=== PATIENT | male | born 1940 | race Hispanic/Latino ===

== ENCOUNTER 2016-09-26 11:00 | Emergency (ER) | payer OTHER, MEDICARE ==
[~2016-09-26 11:00] MED LIST: AMOXICILLIN875 M1 PO; ASPIR 8181 MG PO; ATROVENT 0.02%2.5 ML INH; AUGMENTIN 875 M1 TAB PO; AUGMENTIN 875-1 EACH PO; AUGMENTIN 875875 MG PO; COZAAR 50MG TAB50 MG PO; COZAAR50 M1 PO; ECOTRIN81 MG PO; FOLIC ACID 1 MG PO; FUROSEMIDE40 M1 PO; GLIMEPIRIDE2 MG PO; HEPARIN 2525000 UNI1 IV; JANUMET 50-5001 EACH PO; JANUMET 500 MG-1 TAB PO; K-TAB ER20 MEQ PO; LANTUS SOLOS100 U/ML SC; LASIX40 MG PO; LISINOPRIL2.5 MG PO; LOPRESSOR 25MG25 MG PO; LOVASTATIN40 MG PO; MEDROL DOSEPAK1 PAC PO; METFORMIN HCL1000 M1 PO; METHOTREXATE 22.5 MG PO; NEURONTIN300 MG PO; NORVASC5 M1 PO; NOVAPLUS FE50 MCG/HR TOP; NOVOLIN R1000 UNIT2 SC; NOVOLOG100 U/ML SC; PAROXETINE HYDR40 MG PO; PREDNISONE 10MG10 M1 PO; PREDNISONE10 MG PO; PROAIR HFA0.09 MG/Ac INH; SYMBICORT 80/4.1 PUF INH; VERAPAMIL ER120 M1 PO; XARELTO20 M2 PO; XARELTO20 MG PO; ZOCOR40 M1 PO
[2016-09-26 11:15] VITALS: BP 109/62
--- NOTE | 2016-09-26 11:32 | ED NOSE COMPLAINT ---
History of Present Illness General Chief Complaint: Epistaxis/Nasal Foreign Body Stated Complaint: NOSEBLEED Source: patient, family, old records Exam Limitations: no limitations Vital Signs & Intake/Output Vital Signs & Intake/Output ED Intake and Output 09/27 0000 09/26 1200 Intake Total 0 Output Total Balance 0 Intake, Oral 0 Allergies Coded Allergies: NO KNOWN ALLERGIES (02/08/16) Reconcile Medications Amlodipine (Norvasc 5MG Tab) 5 MG TABLET 1 TAB PO DAILY HTN (Reported) Amoxicillin 875 MG TABLET 1 TAB PO BID nose prophylaxis Furosemide 40 MG TABLET 1 TAB PO DAILY WATER PILL (Reported) Glimepiride 2 MG TABLET 1 TAB PO DAILY DIABETES (Reported) Losartan Potassium (Cozaar) 50 MG TABLET 1 TAB PO DAILY HEART (Reported) METFORMIN HCL (Metformin) 1,000 MG TAB 1 TAB PO BID DIABETES (Reported) Potassium Chloride (K-Tab ER) 20 MEQ TABLET.ER 1 TAB PO DAILY SUPPLEMENT ( Reported) Rivaroxaban (Xarelto) 20 MG TABLET 1 TAB PO DAILY BLOOD THINNER (Reported) with food Simvastatin 40 MG TABLET 1 TAB PO QPM CHOLESTEROL (Reported) Sitagliptin Phos/Metformin HCl (Janumet 50-500 MG Tablet) 50 MG-500 MG TABLET 1 TAB PO BID DIABETES (Reported) Verapamil HCl (Verapamil ER) 120 MG TABLET.ER 1 TAB PO DAILY HEART (Reported) Triage Note: PT TO ED FOR NOSEBLEED SINCE 0800 THIS AM. PT TAKES XARELTO DAILY. NOSE NOT CURRENTLY BLEEDING. Triage Nurses Notes Reviewed? yes HPI: Patient is a 76-year-old male presents complaining of right-sided nosebleed. Bleeding onset at 2 AM this morning. Patient reports that bleeding started spontaneously, no trauma present. Patient takes Xarelto daily. Pain is 0 out of 10. Bleeding has been mild to moderate. Patient has had multiple previous nosebleeds that he has presented to the emergency department for an required a Rhino Rocket. Patient is unsure of the name of the ear nose and throat doctor that he is followed up within the past. Denies headache, lightheadedness. (EUNICE WARD,ANTONIO) Past History Travel History Traveled to [place] past 21 day No Medical History Any Pertinent Medical History? 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 Relation not specified for: FH: diabetes mellitus FHx: stroke Hx Contributory? No (ANTONIO AVILES) Review of Systems Review of Systems Constitutional: Denies: chills, fever. EENTM: Reports: see HPI. Respiratory: Denies: cough, short of breath. Cardiovascular: Denies: chest pain. GI: Denies: abdominal pain, nausea, vomiting. Musculoskeletal: Denies: back pain, neck pain. Neurological/Psychological: Denies: headache, numbness. Hematologic/Endocrine: Reports: see HPI. Immunologic/Allergic: Denies: splenectomy. (ANTONIO AVILES) Physical Exam Physical Exam General Appearance: well developed/nourished, alert, awake Head: atraumatic, normal appearance Eyes: Bilateral: normal appearance. Nose: mild active bleeding from right nare. Mouth/Throat: normal mouth inspection, pharynx normal, no visible active bleeding in oropharynx Neck: normal inspection, supple, full range of motion Cardiovascular/Respiratory: no respiratory distress Back: normal inspection, normal range of motion Neurologic/Psych: awake, alert, oriented x 3, normal gait, normal mood/affect Skin: normal color, warm/dry (ANTONIO AVILES) Progress Differential Diagnoses I considered the following diagnoses in my evaluation of the patient: anterior vs posterior epistaxis, hypertensive urgency, anemia, coagulopathy Plan of Care: Patient well appearing. No signs of posterior epistaxis. 4.5 cm rhino rocket placed by me. Well tolerated by patient. Discussed with Dr. Avelar. Initial ED EKG: none (ANTONIO AVILES) Departure Departure Disposition: HOME OR SELF CARE Condition: Stable Clinical Impression Primary Impression: Anterior epistaxis Referrals: CASSIUS BLOOM,LYNN Hankins (PCP/Family) ARIANA BLOOM,DARIA Bacon Additional Instructions: Follow-up with the ear nose and throat doctor that you have seen previously or with Dr. Suárez(ear nose and throat doctor) within 2-3 days for further evaluation. Call tomorrow morning for appointment. Return to the emergency department immediately if bleeding resumes, fevers, increasing pain, or worsening of symptoms. Departure Forms: Customer Survey General Discharge Information Prescriptions: Current Visit Scripts Amoxicillin 1 TAB PO BID #14 TAB (ANTONIO AVILES) PA/CARD LACER Co-Sign Statement Statement: ED Attending supervision documentation- [X] I saw and evaluated the patient. I have also reviewed all the pertinent lab results and diagnostic results. I agree with the findings and the plan of care as documented in the PA's/CARD LACER's documentation. [X] I have reviewed the ED Record and agree with the PA's/CARD LACER's documentation. [] Additions or exceptions (if any) to the PAs/CARD LACER's note and plan are summarized below: [] (NEHEMIAS BLOOM,JEANNETTE) Procedures Epistaxis/Nasal Foreign Body Status: bleeding (mild) Inspected With: otoscope Bleeding Site: anterior Nasal Rocket: Right: Inserted Anterior (4.5cm). (ANTONIO AVILES)
[2016-09-26] MEDS ORDERED: AMOXICILLIN875 M1 PO (11:58)
== END 2016-09-26 12:04 ==
LOC: ERH 11:00
DX: R04.0 Epistaxis (principal)

== ENCOUNTER 2016-11-03 02:47 | Emergency (ER) | payer OTHER, MEDICARE ==
[~2016-11-03] VITALS: Ht 160 cm; Wt 78.5 kg
--- NOTE | 2016-11-03 03:30 | ED NOSE COMPLAINT ---
History of Present Illness General Chief Complaint: Epistaxis/Nasal Foreign Body Stated Complaint: "NOSE BLEEDING SINCE YESTERDAY 1400" Source: patient Exam Limitations: no limitations Vital Signs & Intake/Output Vital Signs & Intake/Output Vital Signs Date Time Temp Pulse Resp B/P Pulse O2 O2 Flow FiO2 Ox Delivery Rate 11/03 0252 97.0 80 18 131/62 96 Room Air Allergies Coded Allergies: NO KNOWN ALLERGIES (02/08/16) Reconcile Medications Amlodipine Besylate (Norvasc) 5 MG TABLET 1 TAB PO DAILY HTN (Reported) Cephalexin (Keflex) 500 MG CAPSULE 1 CAP PO TID nasal packing Furosemide 40 MG TABLET 1 TAB PO DAILY WATER PILL (Reported) Glimepiride 2 MG TABLET 1 TAB PO DAILY DIABETES (Reported) Losartan Potassium (Cozaar) 50 MG TABLET 1 TAB PO DAILY HEART (Reported) Metformin HCl 1,000 MG TABLET 1 TAB PO BID DIABETES (Reported) Potassium Chloride (K-Tab ER) 20 MEQ TABLET.ER 1 TAB PO DAILY SUPPLEMENT ( Reported) Rivaroxaban (Xarelto) 20 MG TABLET 1 TAB PO DAILY BLOOD THINNER (Reported) with food Simvastatin (Zocor*) 40 MG TABLET 1 TAB PO QPM CHOLESTEROL (Reported) Sitagliptin Phos/Metformin HCl (Janumet 50-500 MG Tablet) 50 MG-500 MG TABLET 1 TAB PO BID DIABETES (Reported) Sulfamethoxazole/Trimethoprim (Bactrim Ds Tablet) 800 MG-160 MG TABLET 1 TAB PO BID NASAL PACKING Verapamil HCl (Verapamil ER) 120 MG TABLET.ER 1 TAB PO DAILY HEART (Reported) Triage Note: PT TO TRIAGE C/O NOSEBLEED SINCE 2200 LAST NIGHT. PT HAS HISTORY OF NOSEBLEEDS. Triage Nurses Notes Reviewed? yes HPI: Patient presents for evaluation of the sudden onset of nose bleeding episode that began about 10:00 last night. Patient states he has had at least 4 other nosebleeding episodes. He denies any trauma or inciting event. He states nosebleeding has been moderate to severe and nothing seems to make it get better. The bleeding has been more or less constant since onset. Past History Travel History Traveled to [place] past 21 day No Medical History Any Pertinent Medical History? 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 Relation not specified for: FH: diabetes mellitus FHx: stroke Hx Contributory? No Review of Systems Review of Systems Constitutional: Reports: no symptoms. EENTM: Reports: see HPI. Respiratory: Reports: no symptoms. Cardiovascular: Reports: no symptoms. GI: Reports: no symptoms. Genitourinary: Reports: no symptoms. Musculoskeletal: Reports: no symptoms. Skin: Reports: no symptoms. Neurological/Psychological: Reports: no symptoms. Hematologic/Endocrine: Reports: no symptoms. Immunologic/Allergic: Reports: no symptoms. All Other Systems: Reviewed and Negative Physical Exam Physical Exam Nose: SEE BELOW Comments: Gen.: Well-nourished, well-developed, no acute respiratory distress. Head: Normocephalic, atraumatic. Eyes: Normal inspection bilaterally Ears: Normal inspection bilaterally Nose: Red blood of both sides of the anterior nasal septum, no apparent trauma Throat/mouth : Moist mucosa Neck: Supple, full range of motion, no goiter Lungs: Quiet respirations Chest: Nontender Back: Normal range of motion Abdomen: Soft, nontender, nondistended, normal bowel sounds Extremities: Normal range of motion grossly Neurologic: Cranial nerves grossly intact, speech is clear Skin: warm and dry Psychiatric: Calm, cooperative, no apparent delusions or hallucinations Progress Differential Diagnoses I considered the following diagnoses in my evaluation of the patient: Epistaxis, nasal trauma Plan of Care: See discharge instructions Initial ED EKG: none Comments: 11/03/2016 3:29:49 AM Afrin and lidocaine soaked gauze placed in left nostril. A Merocel nasal tampon was then placed into the left nose with cessation of bleeding. Departure Departure Disposition: HOME OR SELF CARE Condition: Stable Clinical Impression Primary Impression: Epistaxis, recurrent Referrals: CASSIUS BLOOM,LYNN Hankins (PCP/Family) Additional Instructions: The antibiotic as prescribed. Follow-up with [phone] (ear nose and throat doctor) in 3 days to have the nasal packing removed. Return if any concerns or sudden worsening. Departure Forms: Customer Survey General Discharge Information Prescriptions: Current Visit Scripts Sulfamethoxazole/Trimethoprim (Bactrim Ds Tablet) 1 TAB PO BID #6 TAB Procedures Epistaxis/Nasal Foreign Body Status: bleeding Clots Cleared Nasal Passage: by patient blowing Ext Pressure/Nose Pinch (min): 10 Inspected With: otoscope Bleeding Site: anterior septum Hemostatic Nasal Balloon: Left: Inserted Anterior. ED Attending Observation Initial Observation Note: I have seen and personally examined VICE ANNANTE on 11/06/16 at 0835. I agree with the current emergency department documentation. The disposition (admission or discharge) is uncertain at this time, he needs a period of observation for the following reason(s): The ED Nurse caring for this patient has been personally informed as to what the patient is being observed for.
[2016-11-03] MEDS ORDERED: BACTRIM DS TAB1 EACH PO (04:16)
[2016-11-03 04:22] VITALS: BP 128/74
[2016-11-03] MEDS ORDERED: KEFLEX500 M1 PO (07:47)
== END 2016-11-03 04:25 ==
LOC: ERH 02:47
DX: R04.0 Epistaxis (principal)

== ENCOUNTER 2016-11-03 05:55 | Emergency (ER) | payer OTHER, MEDICARE ==
[~2016-11-03 05:55] MED LIST changes: +BACTRIM DS TAB1 EACH PO
--- NOTE | 2016-11-03 06:06 | ED NOSE COMPLAINT ---
See Addendum History of Present Illness General Chief Complaint: Epistaxis/Nasal Foreign Body Stated Complaint: "NOSE BLEEDING" Source: patient, old records Exam Limitations: no limitations Vital Signs & Intake/Output Vital Signs & Intake/Output Vital Signs Date Time Temp Pulse Resp B/P Pulse O2 O2 Flow FiO2 Ox Delivery Rate 11/03 0802 98.9 84 20 154/81 97 Room Air Room Air 11/03 0609 97.6 76 18 171/74 96 Allergies Coded Allergies: NO KNOWN ALLERGIES (02/08/16) Reconcile Medications Amlodipine Besylate (Norvasc) 5 MG TABLET 1 TAB PO DAILY HTN (Reported) Cephalexin (Keflex) 500 MG CAPSULE 1 CAP PO TID nasal packing Furosemide 40 MG TABLET 1 TAB PO DAILY WATER PILL (Reported) Glimepiride 2 MG TABLET 1 TAB PO DAILY DIABETES (Reported) Losartan Potassium (Cozaar) 50 MG TABLET 1 TAB PO DAILY HEART (Reported) Metformin HCl 1,000 MG TABLET 1 TAB PO BID DIABETES (Reported) Potassium Chloride (K-Tab ER) 20 MEQ TABLET.ER 1 TAB PO DAILY SUPPLEMENT ( Reported) Rivaroxaban (Xarelto) 20 MG TABLET 1 TAB PO DAILY BLOOD THINNER (Reported) with food Simvastatin (Zocor*) 40 MG TABLET 1 TAB PO QPM CHOLESTEROL (Reported) Sitagliptin Phos/Metformin HCl (Janumet 50-500 MG Tablet) 50 MG-500 MG TABLET 1 TAB PO BID DIABETES (Reported) Sulfamethoxazole/Trimethoprim (Bactrim Ds Tablet) 800 MG-160 MG TABLET 1 TAB PO BID NASAL PACKING Verapamil HCl (Verapamil ER) 120 MG TABLET.ER 1 TAB PO DAILY HEART (Reported) Triage Nurses Notes Reviewed? yes HPI: Patient presents with a right-sided nose bleeding. Patient was seen earlier this morning for left-sided nose bleeding. Nasal tampon placed at that time with cessation of bleeding. Since then the patient said return if nose bleeding but this time from the right nostril. Bleeding has been constant described as bright red in coloration, moderate to severe in intensity and nothing seems to improve it. (DENA BLOOM,ANSELMO Neri) Past History Travel History Traveled to [place] past 21 day No Medical History Any Pertinent Medical History? 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 Relation not specified for: FH: diabetes mellitus FHx: stroke Hx Contributory? No (ANSELMO FERNANDES MD) Review of Systems Review of Systems Constitutional: Reports: no symptoms. EENTM: Reports: see HPI. Respiratory: Reports: no symptoms. Cardiovascular: Reports: no symptoms. GI: Reports: no symptoms. Genitourinary: Reports: no symptoms. Musculoskeletal: Reports: no symptoms. Skin: Reports: no symptoms. Neurological/Psychological: Reports: no symptoms. Hematologic/Endocrine: Reports: no symptoms. Immunologic/Allergic: Reports: no symptoms. All Other Systems: Reviewed and Negative (ANSELMO FERNANDES MD) Physical Exam Physical Exam Nose: see below Comments: Gen.: Well-nourished, well-developed, no acute respiratory distress. Head: Normocephalic, atraumatic. Eyes: Normal inspection bilaterally Ears: Normal inspection bilaterally Nose: Left nasal tampon in place with no active bleeding, red blood oozing from the right nostril with no apparent trauma Throat/mouth : Moist mucosa Neck: Supple, full range of motion, no goiter Lungs: Quiet respirations Back: Normal range of motion Extremities: Normal range of motion grossly, equal radial pulses Neurologic: Cranial nerves grossly intact, speech is clear Skin: warm and dry Psychiatric: Calm, cooperative, no apparent delusions or hallucinations (ANSELMO FERNANDES MD) Progress Differential Diagnoses I considered the following diagnoses in my evaluation of the patient: Epistaxis Plan of Care: Follow-up ear nose and throat Initial ED EKG: none Comments: 11/03/2016 7:01:28 AM 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 (ANSELMO FERNANDES MD) Plan of Care: Follow-up ear nose and throatComments: No further bleeding. Tolerating bilateral nasal packing. (LAURY CARLISLE MD) Departure Departure Condition: Stable Departure Forms: Customer Survey General Discharge Information (FERNANDES MD,ANSELMO D) Departure Time of Disposition: 744 Disposition: HOME OR SELF CARE Clinical Impression Primary Impression: Anterior epistaxis Referrals: CASSIUS BLOOM,LYNN Hankins (PCP/Family) ARIANA BLOOM,DARIA Bacon Call for ENT follow up Prescriptions: Current Visit Scripts Cephalexin (Keflex) 1 CAP PO TID #9 CAP (ORESTES BLOOM,LAURY)
[2016-11-03] MEDS ORDERED: KEFLEX500 M1 PO (07:47)
[2016-11-03 08:02] VITALS: BP 154/81
== END 2016-11-03 08:03 ==
LOC: ERH 05:55
DX: R04.0 Epistaxis (principal)

== ENCOUNTER 2016-11-05 08:10 | Emergency (ER) | payer OTHER, MEDICARE ==
[~2016-11-05] VITALS: Ht 160 cm; Wt 77.1 kg
[~2016-11-05 08:10] MED LIST changes: +KEFLEX500 M1 PO
[2016-11-05 08:16] VITALS: BP 123/68
--- NOTE | 2016-11-05 09:34 | ED NOSE COMPLAINT ---
History of Present Illness General Chief Complaint: General Adult Stated Complaint: REQ REMOVAL OF NASAL PACKING Source: patient Exam Limitations: language barrier Vital Signs & Intake/Output Vital Signs & Intake/Output Vital Signs Date Time Temp Pulse Resp B/P Pulse O2 O2 Flow FiO2 Ox Delivery Rate 11/05 0816 97.4 80 20 123/68 95 Room Air Allergies Coded Allergies: NO KNOWN ALLERGIES (02/08/16) Reconcile Medications Amlodipine Besylate (Norvasc) 5 MG TABLET 1 TAB PO DAILY HTN (Reported) Cephalexin (Keflex) 500 MG CAPSULE 1 CAP PO TID nasal packing Furosemide 40 MG TABLET 1 TAB PO DAILY WATER PILL (Reported) Glimepiride 2 MG TABLET 1 TAB PO DAILY DIABETES (Reported) Losartan Potassium (Cozaar) 50 MG TABLET 1 TAB PO DAILY HEART (Reported) Metformin HCl 1,000 MG TABLET 1 TAB PO BID DIABETES (Reported) Potassium Chloride (K-Tab ER) 20 MEQ TABLET.ER 1 TAB PO DAILY SUPPLEMENT ( Reported) Rivaroxaban (Xarelto) 20 MG TABLET 1 TAB PO DAILY BLOOD THINNER (Reported) with food Simvastatin (Zocor*) 40 MG TABLET 1 TAB PO QPM CHOLESTEROL (Reported) Sitagliptin Phos/Metformin HCl (Janumet 50-500 MG Tablet) 50 MG-500 MG TABLET 1 TAB PO BID DIABETES (Reported) Sulfamethoxazole/Trimethoprim (Bactrim Ds Tablet) 800 MG-160 MG TABLET 1 TAB PO BID NASAL PACKING Verapamil HCl (Verapamil ER) 120 MG TABLET.ER 1 TAB PO DAILY HEART (Reported) Triage Note: PT HERE FOR NASAL PACKING REMOVAL. PLACED ON TUESDAY MORNING Triage Nurses Notes Reviewed? yes HPI: This patient is a 76-year-old male who presented to the emergency department today for nasal packing removal. He had bilateral nasal packing placed on 11/03. He was told to follow-up with the ear nose and throat physician for packing removal, but reported that he wanted to come back here. He denied any bleeding, facial pain, fevers, chills, chest pain, or any other associated symptoms. (LAKESHIA KRISHNA PA-C) Past History Travel History Traveled to [place] past 21 day No Medical History Any Pertinent Medical History? 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 Relation not specified for: FH: diabetes mellitus FHx: stroke Hx Contributory? No (LAKESHIA KRISHNA PA-C) Review of Systems Review of Systems Constitutional: Reports: no symptoms. EENTM: Reports: see HPI. Respiratory: Reports: no symptoms. Cardiovascular: Reports: no symptoms. GI: Reports: no symptoms. Genitourinary: Reports: no symptoms. Musculoskeletal: Reports: no symptoms. Skin: Reports: no symptoms. Neurological/Psychological: Reports: no symptoms. All Other Systems: Reviewed and Negative (LAKESHIA KRISHNA PA-C) Physical Exam Physical Exam Nose: bilateral packing in place. Dried blood around both nares. Comments: Well-developed well-nourished person in no acute distress HEENT: Head normocephalic, moist mucous membranes, no tenderness to palpation over the sinuses, no tenderness to palpation of the scalp Neck: Supple, no lymphadenopathy Back: Normal gait Respiratory: No respiratory distress. Speaking in full sentences Extremities: No edema, full range of motion Neuro: Alert and oriented x3 Psych: Mood affect normal, normal memory normal judgment. Skin: Warm and dry, no rash on exposed skin (LAKESHIA KRISHNA PA-C) Progress Differential Diagnoses I considered the following diagnoses in my evaluation of the patient: [Epistaxis , packing removal, nasal trauma] Plan of Care: I removed bilateral nasal packing after discussing with the patient the risk for rebleeding and suggesting that he follow-up with your nose and throat physician. He reported that he would like the packing removed here. Left there began to bleed after packing removal. Afrin was used in the left naris and then pressure was held for approximately 20 minutes. No active bleeding at this time. The patient is stable for discharge home with outpatient follow-up with ENT. Initial ED EKG: none (LAKESHIA KRISHNA PA-C) Departure Departure Disposition: HOME OR SELF CARE Condition: Stable Clinical Impression Primary Impression: Encounter for removal of nasal packing Referrals: CASSIUS BLOOM,LYNN Hankins (PCP/Family) RAIANA BLOOM,DARIA Bacon Additional Instructions: Please call the ear nose and throat physician for follow-up. Call them today. Return for any worsening symptoms or concerns. 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 I have also reviewed all the pertinent lab results and diagnostic results. I agree with the findings and the plan of care as documented in the PA's/SLITTER CREASER SLOTTER OPERATOR's documentation. [X] I have reviewed the ED Record and agree with the PA's/SLITTER CREASER SLOTTER OPERATOR's documentation. [] Additions or exceptions (if any) to the PAs/SLITTER CREASER SLOTTER OPERATOR's note and plan are summarized below: [] (NEHEMIAS BLOOM,JEANNETTE)
== END 2016-11-05 09:40 ==
LOC: ERH 08:10
DX: Z48.01 Encounter for change or removal of surgical wound dressing (principal)
CPT/HCPCS: 99281

== ENCOUNTER 2016-11-23 20:34 | Observation (INO) | payer OTHER, MEDICARE ==
[~2016-11-23] VITALS: Ht 162.6 cm; Wt 63.5 kg
--- NOTE | 2016-11-23 20:48 | NUR ---
PT TO ED C/O EPISTAXIS. STATES "5TH TIME IN 3 MONTHS" STATES WAS RECENTLY SWITCHED TO ELIQUIS" PMH OF AFIB HAS BEEN BLEEDING SINCE 1700. DENIES DIZZINESS. STATES FEELS SOB WHEN WALKING
[2016-11-23 21:07] LABS: ABSOLUTE BASOPHIL COUNT 0 /CUMM (0.0-0.2); ABSOLUTE EOSINOPHIL COUNT 0.1 /CUMM (0.0-0.7); ABSOLUTE GRANULOCYTE CT 6.2 /CUMM (1.4-6.5); ABSOLUTE LYMPH COUNT 2.3 /CUMM (1.2-3.4); BASOPHIL % 0.2 % (0.0-2.0); EOSINOPHIL % 1.5 % (0-5); GRANULOCYTE % 64.5 % (42.2-75.2); HEMATOCRIT 22.9 % (42-52); MEAN CORPUSCULAR HGB 16.3 PG (27.0-31.0); MEAN CORPUSCULAR HGB CONC 28.5 G/DL (33.0-37.0); MEAN CORPUSCULAR VOLUME 57.2 FL (80.0-94.0); MEAN PLATELET VOLUME 8.1 FL (7.4-10.4); PLATELET COUNT 241 /CUMM (130-400); RBC DISTRIBUTION WIDTH 20.9 % (11.5-14.5); WHITE BLOOD CELL COUNT 9.6 /CUMM (4.8-10.8)
--- NOTE | 2016-11-23 21:07 | NUR ---
ED [facility] AT BEDSIDE
--- NOTE | 2016-11-23 21:08 | NUR ---
CRITICAL TEST RESULTS [id number] EM CASTILLO 76 M TESTS AND RESULTS: HEMOGLOBIN 6.5 Results received and read back by: TREVOR HUFF Results received date and time: 11/23/162107 The following provider was notified of the results, and read the results back: ED DAWSON Notified date and time: 11/23/16 at 210
[2016-11-23 21:10] LABS: PT 20.5 SEC (9.4-12.5); PTT 34 SEC (25-37)
--- NOTE | 2016-11-23 21:13 | ED GENERAL ADULT ---
History of Present Illness General Chief Complaint: General Adult Stated Complaint: PT HAS A BLOODY NOSE Source: patient, family, old records Exam Limitations: no limitations Vital Signs & Intake/Output Vital Signs & Intake/Output Vital Signs Date Time Temp Pulse Resp B/P Pulse O2 O2 Flow FiO2 Ox Delivery Rate 11/24 0910 96.2 65 20 120/57 98 Room Air Room Air 11/24 0645 96.8 74 18 113/55 99 Room Air 11/24 0630 96.8 69 18 122/58 100 Room Air 11/24 0053 96.7 72 18 103/55 99 Room Air 11/23 2241 97.9 67 20 122/58 98 Room Air 11/23 2234 97.6 73 20 127/58 100 Room Air 11/23 2110 Room Air 11/23 2044 97.6 72 18 118/49 100 Room Air ED Intake and Output 11/24 0000 11/23 1200 Intake Total 0 Output Total Balance 0 Intake, Oral 0 Patient 140 lb Weight Allergies Coded Allergies: NO KNOWN ALLERGIES (02/08/16) Reconcile Medications Amlodipine Besylate (Norvasc) 5 MG TABLET 1 TAB PO DAILY HTN (Reported) Cephalexin (Keflex) 500 MG CAPSULE 1 CAP PO TID nasal packing Furosemide 40 MG TABLET 1 TAB PO DAILY WATER PILL (Reported) Glimepiride 2 MG TABLET 1 TAB PO DAILY DIABETES (Reported) Losartan Potassium (Cozaar) 50 MG TABLET 1 TAB PO DAILY HEART (Reported) Metformin HCl 1,000 MG TABLET 1 TAB PO BID DIABETES (Reported) Potassium Chloride (K-Tab ER) 20 MEQ TABLET.ER 1 TAB PO DAILY SUPPLEMENT ( Reported) Rivaroxaban (Xarelto) 20 MG TABLET 1 TAB PO DAILY BLOOD THINNER (Reported) with food Simvastatin (Zocor*) 40 MG TABLET 1 TAB PO QPM CHOLESTEROL (Reported) Sitagliptin Phos/Metformin HCl (Janumet 50-500 MG Tablet) 50 MG-500 MG TABLET 1 TAB PO BID DIABETES (Reported) Sulfamethoxazole/Trimethoprim (Bactrim Ds Tablet) 800 MG-160 MG TABLET 1 TAB PO BID NASAL PACKING Verapamil HCl (Verapamil ER) 120 MG TABLET.ER 1 TAB PO DAILY HEART (Reported) Triage Note: PT TO ED C/O EPISTAXIS. STATES "5TH TIME IN 3 MONTHS" STATES WAS RECENTLY SWITCHED TO ELIQUIS" PMH OF AFIB HAS BEEN BLEEDING SINCE 1700. DENIES DIZZINESS. STATES FEELS SOB WHEN WALKING Triage Nurses Notes Reviewed? yes HPI: Patient is a 76-year-old male presents complaining of nosebleed. Patient has been having recurrent nosebleeds for several years. Nighat's nosebleed began approximately 4 hours ago. Patient reports no improvement with direct pressure. Patient was switched from Pradaxa to Eliquis today. Patient feeling mild dyspnea. Denies chest pain, lightheadedness, syncope (ANTONIO AVILES) Past History Travel History Traveled to [place] past 21 day No Medical History Any Pertinent Medical History? 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 Relation not specified for: FH: diabetes mellitus FHx: stroke Hx Contributory? No (ANTONIO AVILES) Review of Systems Review of Systems Constitutional: Reports: no symptoms. Denies: chills, fever. EENTM: Reports: see HPI. Respiratory: Reports: short of breath (mild, a couple weeks). Denies: cough. Cardiovascular: Denies: chest pain. GI: Denies: abdominal pain, nausea, vomiting. Genitourinary: Reports: no symptoms. Musculoskeletal: Reports: no symptoms. Skin: Reports: no symptoms. Neurological/Psychological: Reports: no symptoms. Hematologic/Endocrine: Reports: see HPI, bleeding. Immunologic/Allergic: Reports: no symptoms. (ANTONIO AVILES) Physical Exam Physical Exam General Appearance: well developed/nourished, alert, awake Head: atraumatic, normal appearance Eyes: Bilateral: normal appearance, PERRL, EOMI. Ears, Nose, Throat: epistaxis right nare, moderate bleeding. No blood in the oropharynx Neck: normal inspection, supple, full range of motion Respiratory: normal breath sounds, chest non-tender, no respiratory distress, lungs clear Cardiovascular: irregularly irregular Gastrointestinal: soft, non-tender Back: normal inspection, normal range of motion, no vertebral tenderness Extremities: normal inspection, normal capillary refill, normal range of motion Neurologic/Psych: no motor/sensory deficits, awake, alert, oriented x 3, normal gait, normal mood/affect Skin: intact, normal color, warm/dry Lymphatic: no anterior cervical kenny Core Measures ACS in differential dx? No CVA/TIA Diagnosis: No Severe Sepsis Present: No Septic Shock Present: No (EUNICE WARD,ANTONIO) Progress Differential Diagnoses I considered the following diagnoses in my evaluation of the patient: anterior epistaxis, posterior epistaxis, symptomatic anemia Plan of Care: Orders Procedure Date/time Status Regular Diet 11/24 B Active BLOOD PRODUCT PICKUP 11/24 05 Active LEUKOCYTE POOR (PACKED CELLS) 11/24 05 Active CBC WITHOUT DIFFERENTIAL 11/24 441 Complete BLOOD PRODUCT PICKUP 11/24 2155 Active Intake & Output 11/23 2144 Active LEUKOCYTE POOR (PACKED CELLS) 11/[address] in observation 11/23 2122 Active Patient Data 11/23 2122 Active Code Status 11/23 2122 Active EKG 11/23 2118 Active Add-on Test (ER Only) 11/23 2112 Active TYPE & SCREEN (NOT X-MATCH) 11/23 2052 Active PARTIAL THROMBOPLASTIN TIME 11/23 2048 Complete PROTHROMBIN TIME 11/23 2048 Complete COMPREHENSIVE METABOLIC PANEL 11/23 2048 Complete CBC WITHOUT DIFFERENTIAL 11/23 2048 Complete Laboratory Tests 11/24/16 0445: CBC w Diff NO MAN DIFF REQ, RBC 3.64 L, MCV 60.7 L, MCH 18.3 L, RDW 26.3 H, MPV 8.1, Gran % 55.2, Lymphocytes % 26.5, Monocytes % 15.1 H, Eosinophils % 3.0 , Basophils % 0.2, Absolute Granulocytes 4.4, Absolute Lymphocytes 2.1, Absolute Monocytes 1.2 H, Absolute Eosinophils 0.2, Absolute Basophils 0, PUBS MCHC 30.1 L 11/23/162052: Anion Gap 19 H, Estimated GFR 23 L, BUN/Creatinine Ratio 21.1, Glucose 155 H, Calcium 9.3, Total Bilirubin 0.6, AST 23, ALT 22, Alkaline Phosphatase 70, Total Protein 7.7, Albumin 4.3, Globulin 3.4, Albumin/Globulin Ratio 1.3, PT 20.5 H, INR 1.97 H, APTT 34, CBC w Diff NO MAN DIFF REQ, RBC 4.00 L, MCV 57.2 L, MCH 16.3 L, RDW 20.9 H, MPV 8.1, Gran % 64.5, Lymphocytes % 23.5, Monocytes % 10.3 H, Eosinophils % 1.5, Basophils % 0.2, Absolute Granulocytes 6.2, Absolute Lymphocytes 2.3, Absolute Monocytes 1.0 H, Absolute Eosinophils 0.1, Absolute Basophils 0, PUBS MCHC 28.5 L 11/23/2016 9:37:14 PM: 4.5 cm Rhino Rocket placed to the right ear with improvement of nose bleed. Patient's hemoglobin decreased from previous. Patient consented to blood transfusion. Discussed with Dr. Galloway. Plan for ED observation (ANTONIO AVILES) Initial ED EKG: atrial fibrillation, rate controlled, ST depression and inverted T waves in in lead 1, 2, V6 which was present on previous EKG Prior EKG: unchanged (ANTONIO AVILES) Hand-Off Endorsed To: LAURY CARLISLE MD Endorsed Time: 0700 Pending: other (TRANSFUSION) (JOSE F GALLOWAY MD) Departure Departure Time of Disposition: 2129 Condition: Stable Clinical Impression Primary Impression: Epistaxis Secondary Impressions: Symptomatic anemia Departure Forms: Customer Survey General Discharge Information Observation Note Spoke With: JOSE F GALLOWAY MD Physician Advisor Notified: JOSE F GALLOWAY MD Place Patient In: ED Observation Rationale for Observation: My rational for observation is as follows: Blood transfusion, repeat complete blood cell count, monitoring for any further epistaxis (ANTONIO AVILES) Departure Disposition: HOME OR SELF CARE Referrals: CASSIUS BLOOM,LYNN Hankins (PCP/Family) ARIANA BLOOM,DARIA Bacon Additional Instructions: KEEP PACKING IN FOLLOW UP WITH ENT RETUNR IF SYMPTOMS WORSEN OR FOR ANY CONCERNS PA/CLINIC LEAD Co-Sign Statement Statement: ED Attending supervision documentation- [X] I saw and evaluated the patient. I have also reviewed all the pertinent lab results and diagnostic results. I agree with the findings and the plan of care as documented in the PA's/CLINIC LEAD's documentation. [X] I have reviewed the ED Record and agree with the PA's/CLINIC LEAD's documentation. [] Additions or exceptions (if any) to the PAs/CLINIC LEAD's note and plan are summarized below: [] (NILESH BLOOM,JOSE F Villalobos) Procedures Epistaxis/Nasal Foreign Body Status: bleeding Inspected With: otoscope Bleeding Site: right anterior epistaxis Nasal Rocket: Right: Inserted Anterior (4.5 cm). (ANTONIO AVILES) Critical Care Note Critical Care Note Critical Care Time: non-applicable (ANTONIO AVILES) ED Attending Observation Initial Observation Note: I have seen and personally examined EM CASTILLO on 11/23/16 at 2204. I agree with the current emergency department documentation. The disposition (admission or discharge) is uncertain at this time, he needs a period of observation for the following reason(s): The ED Nurse caring for this patient has been personally informed as to what the patient is being observed for. Observation Re-Evaluation: I have reevaluated EM CASTILLO on 11/23/16 at 2204. The physical findings that support the continued need to observe this patient include: Rhino rocket appears to be controlling epistaxis well at this time. Awaiting blood transfusion. Patient will require blood transfusion and recheck of CBC. If any further bleeding or blood counts do not improve after blood transfusion then likely will require admission, ENT evaluation and further monitoring (ANTONIO AVILES) Initial Observation Note: I have seen and personally examined EM CASTILLO on 11/23/16 at 2123. I agree with the current emergency department documentation. The disposition (admission or discharge) is uncertain at this time, he needs a period of observation for the following reason(s): [Patient has recurrent epistaxis and is on anticoagulation. Patient is now having symptomatic anemia. Patient will receive a transfusion here in the emergency department and then repeat is 2 DC. Patient will also be reevaluated for his epistaxis. As of right now they're epistaxis is controlled with a Rhino Rocket. If he bleeds through this other measures will be taken. If his blood count continues to drop the patient may require admission with ENT consultation.] The ED Nurse caring for this patient has been personally informed as to what the patient is being observed for. Observation Re-Evaluation: I have reevaluated EM CASTILLO on 11/24/16 at 0309. The physical findings that support the continued need to observe this patient include [patient is resting comfortably. No further bleeding. His lungs are clear to auscultation Cardiac exam is regular rate and rhythm. We will follow up with repeat CBC.]. (NILESH BLOOM,JOSE F Villalobos) Observation Discharge: I have reevaluated EM CASTILLO on 11/24/16 at 0922. The patient is: (x): Stable for discharge (): To be admitted to Nursing Floor (): To be placed in Observation on Nursing Floor (): For transfer to other facility The patient was being observed for epistaxis and anemia As a result of that observation, I have determined stable for discharge. (ORESTES BLOOM,LAURY)
--- NOTE | 2016-11-23 22:38 | NUR ---
PRBC INFUSING. PT TOLERATING WELL. ABLE TO REPOSITION SELF IN BED. FAMILY AT BEDSIDE FOR SUPPORT. WILL CONTINUE TO MONITOR
--- NOTE | 2016-11-23 22:43 | NUR ---
15 MINUTE VITAL CHECK WNL. PT RESTING COMFORTABLY, OFFERS NO COMPLAINTS
--- NOTE | 2016-11-23 23:29 | NUR ---
ASSUMED CARE OF PT PER MARCO MURRAY. PT RESTING IN CHAIR WITH SON AT BEDSIDE RR NOTED. NO DISTRESS NOTED. WILL CONTINUE TO MONITOR
--- NOTE | 2016-11-24 00:30 | NUR ---
PTS BLOOD PRODUCT FINISHED, PT SITTING ON EDGE OF BED USING URINAL WITH PTS SONS ASSISTANCE.
--- NOTE | 2016-11-24 01:52 | NUR ---
PT SLEEPING IN RM WITH RR ON MONITOR, SON IN RM WITH PT. WILL CONTINUE TO MONITOR
--- NOTE | 2016-11-24 03:48 | NUR ---
PT STANDING AT BEDSIDE USING URINAL WITH THE HELP OF PTS SON.
[2016-11-24 05:23] LABS: ABSOLUTE BASOPHIL COUNT 0 /CUMM (0.0-0.2)
[2016-11-24 05:25] LABS: ABSOLUTE EOSINOPHIL COUNT 0.2 /CUMM (0.0-0.7); ABSOLUTE GRANULOCYTE CT 4.4 /CUMM (1.4-6.5); ABSOLUTE LYMPH COUNT 2.1 /CUMM (1.2-3.4); ABSOLUTE MONOCYTE COUNT 1.2 /CUMM (0.10-0.60); BASOPHIL % 0.2 % (0.0-2.0); GRANULOCYTE % 55.2 % (42.2-75.2); HEMATOCRIT 22.1 % (42-52); MEAN CORPUSCULAR HGB CONC 30.1 G/DL (33.0-37.0); MEAN PLATELET VOLUME 8.1 FL (7.4-10.4); PLATELET COUNT 193 /CUMM (130-400); RBC DISTRIBUTION WIDTH 26.3 % (11.5-14.5); RED BLOOD CELL CT 3.64 /CUMM (4.70-6.10)
[2016-11-24 05:35] LABS: MEAN CORPUSCULAR HGB 18.3 PG (27.0-31.0); MEAN CORPUSCULAR VOLUME 60.7 FL (80.0-94.0)
--- NOTE | 2016-11-24 05:35 | NUR ---
CRITICAL TEST RESULTS [id number] EM CASTILLO 76 M TESTS AND RESULTS: HGB 6.6 HCT 22.1 Results received and read back by: MO HERNANDEZ Results received date and time: 11/24/16 0535 The following provider was notified of the results, and read the results back: DR GALLOWAY Notified date and time: 11/24/16 at 0535
--- NOTE | 2016-11-24 05:58 | NUR ---
DR GALLOWAY IN FOR POC, UNIT #2 OF PRBC ORDERED AND PICKUP PLACED.
--- NOTE | 2016-11-24 06:09 | NUR ---
LAB CALLED. PER JANE, BLOOD IS NOT READY YET.
--- NOTE | 2016-11-24 06:29 | NUR ---
MARCO COOPER AND MARCO ATKINSON ADMINISTERING UNIT #2 OF PRBC TO PT WITH CRITICAL VALUE OF HBG AND HCT.
--- NOTE | 2016-11-24 06:30 | NUR ---
LEUKOCYTE POOR INITIATED. VERIFIED WITH MARCO COOPER. PRODUCT # [id number]
--- NOTE | 2016-11-24 07:10 | NUR ---
PT RESTING COMFORTABLY, NO COMPLAINTS AT THIS TIME. SON AT BEDSIDE.
--- NOTE | 2016-11-24 08:06 | NUR ---
PT SPEAKING WITH FAMILY ON PHONE, BLOOD CONTINUES TO INFUSE WITHOUT DIFFICULTY AT THIS TIME, PT DENIES PAIN OR SOB, NO COMPLAINTS AT THIS TIME. SON REMAINS AT BEDSIDE.
--- NOTE | 2016-11-24 08:45 | NUR ---
PT SITTING UP ON CELL PHONE, AWAITING COMPLETION OF BLOOD INFUSION, PT HAS NO COMPLAINTS AT THIS TIME. FAMILY AT BEDSIDE.
--- NOTE | 2016-11-24 09:09 | NUR ---
# 2 UNIT OF BLOOD COMPLETED, TOLERATED WELL, NO COMPLAINTS, AFEBRILE, VITALS STABLE.
[2016-11-24 09:10] VITALS: BP 120/57
--- NOTE | 2016-11-24 09:30 | NUR ---
DC HOME, PT AND FAMILY VERBALZES UNDERSTANDING OF DC INSTRUCTIONS.
== END 2016-11-24 13:56 ==
LOC: ENRESERVTM → ENRESERVDT → ERH 20:34 → ERHI 21:23 → CMPBEDREQ 11-24 13:54 → ERHI 11-24 13:56
PROVIDERS: ADMIT Emergency Medicine
DX: D64.89 Other specified anemias (principal); R04.0 Epistaxis; I48.91 Unspecified atrial fibrillation; Z79.01 Long term (current) use of anticoagulants; I10 Essential (primary) hypertension; E78.5 Hyperlipidemia, unspecified; J44.9 Chronic obstructive pulmonary disease, unspecified; J45.909 Unspecified asthma, uncomplicated; G47.33 Obstructive sleep apnea (adult) (pediatric)
CPT/HCPCS: 6090; 86920; 93005; 93010; 99291; G0378; P9016

== ENCOUNTER 2016-11-26 09:27 | Emergency (ER) | payer OTHER, MEDICARE ==
[2016-11-26 09:31] VITALS: BP 130/78
--- NOTE | 2016-11-26 09:37 | ED GENERAL ADULT ---
History of Present Illness General Chief Complaint: Epistaxis/Nasal Foreign Body Stated Complaint: REMOVAL OF NASAL PACKING Source: patient Exam Limitations: no limitations Vital Signs & Intake/Output Vital Signs & Intake/Output Vital Signs Date Time Temp Pulse Resp B/P Pulse O2 O2 Flow FiO2 Ox Delivery Rate 11/26 0931 98.7 87 20 130/78 99 Room Air Allergies Coded Allergies: NO KNOWN ALLERGIES (02/08/16) Reconcile Medications Amlodipine Besylate (Norvasc) 5 MG TABLET 1 TAB PO DAILY HTN (Reported) Furosemide 40 MG TABLET 1 TAB PO DAILY WATER PILL (Reported) Glimepiride 2 MG TABLET 1 TAB PO DAILY DIABETES (Reported) Losartan Potassium (Cozaar) 50 MG TABLET 1 TAB PO DAILY HEART (Reported) Metformin HCl 1,000 MG TABLET 1 TAB PO BID DIABETES (Reported) Potassium Chloride (K-Tab ER) 20 MEQ TABLET.ER 1 TAB PO DAILY SUPPLEMENT ( Reported) Rivaroxaban (Xarelto) 20 MG TABLET 1 TAB PO DAILY BLOOD THINNER (Reported) with food Simvastatin (Zocor*) 40 MG TABLET 1 TAB PO QPM CHOLESTEROL (Reported) Sitagliptin Phos/Metformin HCl (Janumet 50-500 MG Tablet) 50 MG-500 MG TABLET 1 TAB PO BID DIABETES (Reported) Verapamil HCl (Verapamil ER) 120 MG TABLET.ER 1 TAB PO DAILY HEART (Reported) Triage Note: PT TO ED FOR NASAL PACKING REMOVAL. PLACED ON 11/23. Triage Nurses Notes Reviewed? yes Onset: Abrupt Duration: day(s): Timing: recent history HPI: 11/26/16 9 47 AM Patient is for removal of nasal packing Patient had nasal packing put in on Tuesday and was significantly anemic. He has no complaints, no further bleeding. The Rhino Rocket was removed. He will follow-up as needed or return to the emergency department if worse Patient apparently had significant epistaxis on Tuesday and a Rhino Rocket was placed in the right naris for ongoing bleeding. The onset of the symptoms was abrupt. The duration was several days. The severity is significant as his symptoms required him to come to the ED for care. He has no associated fever or other complaints at this time. Past History Travel History Traveled to [place] past 21 day No Medical History Any Pertinent Medical History? 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 Relation not specified for: FH: diabetes mellitus FHx: stroke Hx Contributory? No Review of Systems Review of Systems Constitutional: Denies: fever. EENTM: Reports: see HPI. Respiratory: Denies: short of breath. Cardiovascular: Denies: chest pain. GI: Reports: no symptoms. Genitourinary: Reports: no symptoms. Musculoskeletal: Reports: no symptoms. Skin: Reports: no symptoms. Neurological/Psychological: Reports: no symptoms. Hematologic/Endocrine: Reports: no symptoms. Physical Exam Physical Exam General Appearance: alert, awake, anxious, mild distress Head: atraumatic Eyes: Bilateral: normal appearance, PERRL, EOMI. Ears, Nose, Throat: Rhino Rocket right naris Neck: normal inspection, supple Respiratory: normal breath sounds Cardiovascular: regular rate/rhythm Peripheral Pulses: 4+ radial (R), 4+ radial (L) Back: normal range of motion Extremities: normal inspection Neurologic/Psych: no motor/sensory deficits, awake, alert, oriented x 3 Skin: intact, normal color, warm/dry Core Measures ACS in differential dx? No CVA/TIA Diagnosis: No Severe Sepsis Present: No Septic Shock Present: No Progress Differential Diagnoses I considered the following diagnoses in my evaluation of the patient: [ Coagulopathy, anemia, abscess, epistaxis] Plan of Care: Follow-up with his primary care doctor next week. Return to the emergency department should bleeding recur. Initial ED EKG: none Departure Departure Disposition: HOME OR SELF CARE Condition: Stable Clinical Impression Primary Impression: Epistaxis Referrals: CASSIUS BLOOM,LYNN Hankins (PCP/Family) Departure Forms: Customer Survey General Discharge Information Critical Care Note Critical Care Note Critical Care Time: non-applicable
== END 2016-11-26 10:12 ==
LOC: ERH 09:27
DX: R04.0 Epistaxis (principal)
CPT/HCPCS: 99281

== ENCOUNTER 2016-12-08 18:06 | Emergency (ER) | payer OTHER, MEDICARE ==
[~2016-12-08] VITALS: Ht 160 cm; Wt 78.0 kg
[2016-12-08 18:27] VITALS: BP 126/65
--- NOTE | 2016-12-08 18:34 | ED NOSE COMPLAINT ---
History of Present Illness General Chief Complaint: Epistaxis/Nasal Foreign Body Stated Complaint: EPISTAXIS Source: patient Exam Limitations: no limitations Vital Signs & Intake/Output Vital Signs & Intake/Output Vital Signs Date Time Temp Pulse Resp B/P Pulse O2 O2 Flow FiO2 Ox Delivery Rate 12/08 1827 97.7 77 18 126/65 100 Room Air Allergies Coded Allergies: NO KNOWN ALLERGIES (02/08/16) Reconcile Medications Amlodipine Besylate (Norvasc) 5 MG TABLET 1 TAB PO DAILY HTN (Reported) Furosemide 40 MG TABLET 1 TAB PO DAILY WATER PILL (Reported) Glimepiride 2 MG TABLET 1 TAB PO DAILY DIABETES (Reported) Losartan Potassium (Cozaar) 50 MG TABLET 1 TAB PO DAILY HEART (Reported) Metformin HCl 1,000 MG TABLET 1 TAB PO BID DIABETES (Reported) Potassium Chloride (K-Tab ER) 20 MEQ TABLET.ER 1 TAB PO DAILY SUPPLEMENT ( Reported) Rivaroxaban (Xarelto) 20 MG TABLET 1 TAB PO DAILY BLOOD THINNER (Reported) with food Simvastatin (Zocor*) 40 MG TABLET 1 TAB PO QPM CHOLESTEROL (Reported) Sitagliptin Phos/Metformin HCl (Janumet 50-500 MG Tablet) 50 MG-500 MG TABLET 1 TAB PO BID DIABETES (Reported) Verapamil HCl (Verapamil ER) 120 MG TABLET.ER 1 TAB PO DAILY HEART (Reported) Triage Note: PT STATES THAT HE IS ON ELIQUIST FOR AFIB AND THAT HE HAD A BLODDY NOSE THAT STARTED AROUND 1500, NOSE NOT BLEEDING AT THIS TIME, STOPPED AFTER ARRIVAL TO ER Triage Nurses Notes Reviewed? yes HPI: tHIS PATIENT is a 76-year-old male with past medical history including atrial fibrillation currently on ELAQUIS who presented to the emergency department today for evaluation of epistaxis starting at 3:00 today. The patient reported that the nosebleed stopped in the emergency department. No active bleeding. He has not had any dizziness, lightheadedness, chest pain, difficulty breathing, visual changes, or any other associated symptoms. (ERENDIRA BUTLER,LAKESHIA) Past History Travel History Traveled to [place] past 21 day No Medical History Any Pertinent Medical History? 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 Relation not specified for: FH: diabetes mellitus FHx: stroke Hx Contributory? No (LAKESHIA KRISHNA PA-C) Review of Systems Review of Systems Constitutional: Reports: no symptoms. EENTM: Reports: see HPI. Respiratory: Reports: no symptoms. Cardiovascular: Reports: no symptoms. GI: Reports: no symptoms. Musculoskeletal: Reports: no symptoms. Skin: Reports: no symptoms. Neurological/Psychological: Reports: no symptoms. All Other Systems: Reviewed and Negative (LAKESHIA KRISHNA PA-C) Physical Exam Physical Exam Nose: dried blood, NO ACTIVE BLEEDING Comments: Well-developed well-nourished person in no acute distress HEENT: Normal EENT exam, head normocephalic, moist mucous membranes Pupils equally round and reactive to light. Nose is atraumatic. Neck: Supple, no lymphadenopathy Back: Normal gait Respiratory: No respiratory distress. Speaking in full sentences Extremity: Normal and equal pulses Neuro: Alert oriented x3, cranial nerves II through XII grossly intact. Skin: No appreciable rash on exposed skin, skin is warm and dry. Psych: Mood and affect is normal (LAKESHIA KRISHNA PA-C) Progress Differential Diagnoses I considered the following diagnoses in my evaluation of the patient: [ Hypertension, epistaxis, anemia] Plan of Care: This patient is a 76-year-old male who presented to the emergency department today for evaluation of epistaxis. No active bleeding here in the emergency department. Dried blood noted in the right NARE. Patient offers no other complaints. Stable for discharge home with primary care follow-up. I counseled the patient extensively and the importance of returning for any recurrence of his symptoms. Initial ED EKG: none (LAKESHIA KRISHNA PA-C) Departure Departure Disposition: HOME OR SELF CARE Condition: Stable Clinical Impression Primary Impression: Epistaxis Referrals: CASSIUS BLOOM,LYNN Hankisn (PCP/Family) Additional Instructions: PLEASE CALL YOUR PRIMARY CARE DOCTOR TOMORROW to let him know about your recurrent nosebleeds. Return for any worsening symptoms or concerns. Departure Forms: Customer Survey General Discharge Information (ERENDIRA BUTLER,LAKESHIA) PA/SUTURE WINDER HAND Co-Sign Statement Statement: ED Attending supervision documentation- [X] I saw and evaluated the patient. I have also reviewed all the pertinent lab results and diagnostic results. I agree with the findings and the plan of care as documented in the PA's/SUTURE WINDER HAND's documentation. [X] I have reviewed the ED Record and agree with the PA's/SUTURE WINDER HAND's documentation. [] Additions or exceptions (if any) to the PAs/SUTURE WINDER HAND's note and plan are summarized below: [] (NEHEMIAS BLOOM,JEANNETTE)
== END 2016-12-08 18:34 ==
LOC: ERH 18:06
DX: R04.0 Epistaxis (principal)

== ENCOUNTER 2017-01-02 23:20 | Emergency (ER) | payer OTHER, MEDICARE ==
[~2017-01-02] VITALS: Ht 160 cm; Wt 78.0 kg
[2017-01-02 23:40] VITALS: BP 102/56
--- NOTE | 2017-01-02 23:45 | ED NOSE COMPLAINT ---
History of Present Illness General Chief Complaint: Epistaxis/Nasal Foreign Body Stated Complaint: NOSE BLEEDING Source: patient Exam Limitations: no limitations Vital Signs & Intake/Output Vital Signs & Intake/Output Vital Signs Date Time Temp Pulse Resp B/P Pulse O2 O2 Flow FiO2 Ox Delivery Rate 01/02 2340 98.0 90 18 102/56 99 Room Air ED Intake and Output 01/03 0000 01/02 1200 Intake Total Output Total Balance Patient 172 lb Weight Allergies Coded Allergies: NO KNOWN ALLERGIES (02/08/16) Reconcile Medications Amlodipine Besylate (Norvasc) 5 MG TABLET 1 TAB PO DAILY HTN (Reported) Amoxicillin/Potassium Clav (Augmentin 875-125 Tablet) 875 MG-125 MG TABLET 1 TAB PO BID infection prevention Furosemide 40 MG TABLET 1 TAB PO DAILY WATER PILL (Reported) Glimepiride 2 MG TABLET 1 TAB PO DAILY DIABETES (Reported) Losartan Potassium (Cozaar) 50 MG TABLET 1 TAB PO DAILY HEART (Reported) Metformin HCl 1,000 MG TABLET 1 TAB PO BID DIABETES (Reported) Potassium Chloride (K-Tab ER) 20 MEQ TABLET.ER 1 TAB PO DAILY SUPPLEMENT ( Reported) Rivaroxaban (Xarelto) 20 MG TABLET 1 TAB PO DAILY BLOOD THINNER (Reported) with food Simvastatin (Zocor*) 40 MG TABLET 1 TAB PO QPM CHOLESTEROL (Reported) Sitagliptin Phos/Metformin HCl (Janumet 50-500 MG Tablet) 50 MG-500 MG TABLET 1 TAB PO BID DIABETES (Reported) Verapamil HCl (Verapamil ER) 120 MG TABLET.ER 1 TAB PO DAILY HEART (Reported) Triage Note: PT TO ED C/O NOSE BLEED SINCE 6 PM. TAKERS RAYMOND. HAS PMH OF SAME, WITH RECENT CHANGES IN MEDS TO TRY TO REDUCE NOSE BLEED FREQUENCY. Triage Nurses Notes Reviewed? yes Onset: Abrupt Duration: hour(s):, waxing and waning Timing: recent history Injury Environment: home Severity: mild, moderate Modifying Factors: Improves With: rest. Associated Symptoms: left nare bleeding HPI: 76 yo gentleman on eliquis for atrial fibrillation, presents with right nare bleeding. He notes it started around 6pm, seems to be bleeding from the nare, without blood going down his throat. He has no fever, chills, dizziness. He is otherwise well. Past History Travel History Traveled to [place] past 21 day No Medical History Any Pertinent Medical History? 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 Relation not specified for: FH: diabetes mellitus FHx: stroke Hx Contributory? No Review of Systems Review of Systems Constitutional: Reports: no symptoms. EENTM: Reports: no symptoms. Respiratory: Reports: no symptoms. Cardiovascular: Reports: no symptoms. GI: Reports: no symptoms. Genitourinary: Reports: no symptoms. Musculoskeletal: Reports: no symptoms. Skin: Reports: no symptoms. Neurological/Psychological: Reports: no symptoms. Hematologic/Endocrine: Reports: no symptoms. Immunologic/Allergic: Reports: no symptoms. All Other Systems: Reviewed and Negative Physical Exam Physical Exam General Appearance: well developed/nourished, mild distress Head: atraumatic Eyes: Bilateral: PERRL, EOMI. Nose: anterior moist blood from right nare. no sinus tenderness. no blood noted in posterior oropharynx Mouth/Throat: normal mouth inspection, pharynx normal Neck: normal inspection, supple Cardiovascular/Respiratory: normal breath sounds Back: normal inspection Neurologic/Psych: awake, alert, oriented x 3, normal mood/affect Skin: intact, normal color, warm/dry Progress Differential Diagnoses I considered the following diagnoses in my evaluation of the patient: anterior vs posterior epistaxis vs other. Plan of Care: Orders Procedure Date/time Status PARTIAL THROMBOPLASTIN TIME 01/02 2346 Complete PROTHROMBIN TIME 01/02 2346 Complete COMPREHENSIVE METABOLIC PANEL 01/02 2345 Complete CBC WITHOUT DIFFERENTIAL 01/02 2345 Complete Laboratory Tests 01/02/178: Anion Gap 15, Estimated GFR 37 L, BUN/Creatinine Ratio 21.7, Glucose 198 H, Calcium 9.2, Total Bilirubin 0.5, AST 18, ALT 25, Alkaline Phosphatase 77, Total Protein 7.1, Albumin 3.9, Globulin 3.2, Albumin/Globulin Ratio 1.2, PT 17.5 H, INR 1.68 H, APTT 36, CBC w Diff NO MAN DIFF REQ, RBC 4.34 L, MCV 62.3 L, MCH 18.9 L, RDW 26.2 H, MPV 8.6, Gran % 64.3, Lymphocytes % 23.7, Monocytes % 9.3, Eosinophils % 2.3, Basophils % 0.4, Absolute Granulocytes 5.0, Absolute Lymphocytes 1.8, Absolute Monocytes 0.7 H, Absolute Eosinophils 0.2, Absolute Basophils 0, PUBS MCHC 30.4 L Initial ED EKG: none Departure Departure Disposition: HOME OR SELF CARE Condition: Stable Clinical Impression Primary Impression: Epistaxis Referrals: CASSIUS BLOOM,LYNN Hankins (PCP/Family) Departure Forms: Customer Survey General Discharge Information Prescriptions: Current Visit Scripts Amoxicillin/Potassium Clav (Augmentin 875-125 Tablet) 1 TAB PO BID #14 TAB Comments 01/03/17, 1:18am...nasal sponge place upon arrival to ED... no active bleeding in ed x nearly 2 hours.... wrote for augmentin and referred to ent... pt to return if bleeding recurs.
[2017-01-03 00:21] LABS: ABSOLUTE BASOPHIL COUNT 0 /CUMM (0.0-0.2); ABSOLUTE EOSINOPHIL COUNT 0.2 /CUMM (0.0-0.7); ABSOLUTE LYMPH COUNT 1.8 /CUMM (1.2-3.4); ABSOLUTE MONOCYTE COUNT 0.7 /CUMM (0.10-0.60); BASOPHIL % 0.4 % (0.0-2.0); EOSINOPHIL % 2.3 % (0-5); GRANULOCYTE % 64.3 % (42.2-75.2); MEAN CORPUSCULAR HGB 18.9 PG (27.0-31.0); MEAN CORPUSCULAR HGB CONC 30.4 G/DL (33.0-37.0); MEAN CORPUSCULAR VOLUME 62.3 FL (80.0-94.0); MEAN PLATELET VOLUME 8.6 FL (7.4-10.4); PLATELET COUNT 183 /CUMM (130-400); RBC DISTRIBUTION WIDTH 26.2 % (11.5-14.5); RED BLOOD CELL CT 4.34 /CUMM (4.70-6.10); WHITE BLOOD CELL COUNT 7.7 /CUMM (4.8-10.8)
[2017-01-03 00:26] LABS: PT 17.5 SEC (9.4-12.5); PTT 36 SEC (25-37)
[2017-01-03] MEDS ORDERED: AUGMENTIN 875-1 EACH PO (01:02)
== END 2017-01-03 01:26 ==
LOC: ERH 23:20
PROVIDERS: Pediatrics
DX: R04.0 Epistaxis (principal)

== ENCOUNTER 2017-01-05 11:26 | Emergency (ER) | payer OTHER, MEDICARE ==
[~2017-01-05] VITALS: Ht 160 cm; Wt 78.0 kg
[2017-01-05 11:32] VITALS: BP 142/74
--- NOTE | 2017-01-05 11:42 | ED NOSE COMPLAINT ---
History of Present Illness General Chief Complaint: General Adult Stated Complaint: REQ REMOVAL OF NOSE PACKING Source: patient, old records Exam Limitations: no limitations Vital Signs & Intake/Output Vital Signs & Intake/Output Vital Signs Date Time Temp Pulse Resp B/P B/P Pulse O2 O2 Flow FiO2 Mean Ox Delivery Rate 01/05 1132 95.9 84 18 142/74 99 Room Air Allergies Coded Allergies: NO KNOWN ALLERGIES (02/08/16) Reconcile Medications Amlodipine Besylate (Norvasc) 5 MG TABLET 1 TAB PO DAILY HTN (Reported) Amoxicillin/Potassium Clav (Augmentin 875-125 Tablet) 875 MG-125 MG TABLET 1 TAB PO BID infection prevention Furosemide 40 MG TABLET 1 TAB PO DAILY WATER PILL (Reported) Glimepiride 2 MG TABLET 1 TAB PO DAILY DIABETES (Reported) Losartan Potassium (Cozaar) 50 MG TABLET 1 TAB PO DAILY HEART (Reported) Metformin HCl 1,000 MG TABLET 1 TAB PO BID DIABETES (Reported) Potassium Chloride (K-Tab ER) 20 MEQ TABLET.ER 1 TAB PO DAILY SUPPLEMENT ( Reported) Rivaroxaban (Xarelto) 20 MG TABLET 1 TAB PO DAILY BLOOD THINNER (Reported) with food Simvastatin (Zocor*) 40 MG TABLET 1 TAB PO QPM CHOLESTEROL (Reported) Sitagliptin Phos/Metformin HCl (Janumet 50-500 MG Tablet) 50 MG-500 MG TABLET 1 TAB PO BID DIABETES (Reported) Verapamil HCl (Verapamil ER) 120 MG TABLET.ER 1 TAB PO DAILY HEART (Reported) Triage Note: REQUESTING REMOVAL OF NASAL PACKING (R NARES). SEEN HERE ON 01/31 FOR NOSES BLEED. Triage Nurses Notes Reviewed? yes Onset: Abrupt Duration: day(s): (3), better Timing: remote history Injury Environment: home Severity: mild, moderate Severity Numbers: 1 No Modifying Factors: none Associated Symptoms: denies HPI: 76-year-old male presents emergency room requesting nasal packing be removed from his right nostril. He was seen here 3 days ago for a right-sided epistaxis requiring packing. He denies any bleeding since. He states he has been compliant taking the antibiotics. There are no other complaints no fever no chills rhinorrhea congestion and sore throat. (GOGO HANSON) Past History Travel History Traveled to [place] past 21 day No Medical History Any Pertinent Medical History? 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 Relation not specified for: FH: diabetes mellitus FHx: stroke Hx Contributory? No (GOGO HANSON) Review of Systems Review of Systems Constitutional: Reports: see HPI. All Other Systems: Reviewed and Negative Comments Review of systems: See HPI, All other systems negative. Constitutional, no chills no fever, no malaise HEENT: no sore throat no congestion Cardiovascular: No chest pain , no palpitation Skin: no change in skin Respiratory: No dyspnea no cough no sputum n GI: No nausea no vomiting, no diarrhea, Muscle skeletal: No joint pain, no back pain, no neck pain, Neurologic: no headache Psych: No stress. Heme/endocrine: No bruising no bleeding Immunology: No lymphadenopathy (GOGO HANSON) Physical Exam Physical Exam General Appearance: well developed/nourished, alert, awake Nose: normal inspection Comments: Well-developed well-nourished patient in no apparent distress. Head/Face: Atraumatic, no maxillary/frontal sinus tenderness, no facial swelling Eyes: PERRL, EOMI, no conjunctival injection. No nystagmus Ear:External auditory canals clear Nose: muricel packing in place, no dry blood, no active epistaxis, atraumatic.Normal inspection: No bleeding, no septal hematoma Throat: Moist mucous membranes.Pharynx normal. No pharyngeal erythema/exudate seen. No stridor/drooling or assymetry. No swelling or edema. Neck: Supple, no lymphadenopathy, FROM Back: FROM Cardiovascular: Regular rate and rhythms no murmurs rubs or gallops, Respiratory: Chest nontender.There were no bony deformities, no asymmetry. No respiratory distress. Patient speaking in full complete sentences. Breath sounds clear to auscultation bilaterally: NO W/R/R Extremities: full range of motion Neuro: awake, alert, and oriented to person, place and time. There were no obvious focal neurologic abnormalities. Skin: Warm & dry;No appreciable rash on exposed skin Psych: Mood affect normal, normal memory normal judgment. (GOGO HANSON) Progress Differential Diagnoses I considered the following diagnoses in my evaluation of the patient: Packing removal epistaxis Plan of Care: I discussed with patient plan of care the packing was removed in its entirety he was monitored there is no active bleeding patient is without complaints advised to continue the antibiotics he feels cold with plan cleared for discharge Initial ED EKG: none (GOGO HANSON) Departure Departure Time of Disposition: 1141 Disposition: HOME OR SELF CARE Condition: Stable Clinical Impression Primary Impression: Encounter for removal of nasal packing Referrals: CASSIUS BLOOM,LYNN Hankins (PCP/Family) Additional Instructions: contineu taking your antibiotics, follow up with your pmd, return with any concerns Departure Forms: Customer Survey General Discharge Information (GOGO HANSON) PA/BRAID FOLDER Co-Sign Statement Statement: ED Attending supervision documentation- [X] I saw and evaluated the patient. I have also reviewed all the pertinent lab results and diagnostic results. I agree with the findings and the plan of care as documented in the PA's/BRAID FOLDER's documentation. [X] I have reviewed the ED Record and agree with the PA's/BRAID FOLDER's documentation. [] Additions or exceptions (if any) to the PAs/BRAID FOLDER's note and plan are summarized below: [] (NILESH BLOOM,JOSE F Villalobos)
== END 2017-01-05 11:42 ==
LOC: ERH 11:26
DX: Z48.01 Encounter for change or removal of surgical wound dressing (principal)
CPT/HCPCS: 99281

== ENCOUNTER 2017-01-16 07:55 | Inpatient (IN) | payer OTHER, MEDICARE ==
[~2017-01-16] VITALS: Ht 160 cm; Wt 74.8 kg
--- NOTE | 2017-01-16 07:57 | NUR ---
TO EKG [facility].
--- NOTE | 2017-01-16 08:11 | NUR ---
PT TO ED C/O BACK PAIN X 3 DAYS. PT'S SISTER STATES ON THE DRIVE TO THE ED EVERY TIME THEY HIT A BUMP PT WOULD WINCE WITH PAIN. PT ALSO C/O "BREATHING NO GOOD". RA SATS 98%, PT NOTED WITH EXERTIONAL SOB. PT ALSO GRIMACING WITH MOVING FROM EKG STRETCHER BACK TO W/C.DENIES N/V/D. DENIES S/S. EKG DONE.
--- NOTE | 2017-01-16 08:14 | NUR ---
PT DOES NOT SPEAK YAKUT WELL, PT'S SISTER JARROD WORKS IN [id number].
--- NOTE | 2017-01-16 08:22 | NUR ---
PT TO ER ROOM 4 VIA WHEELCHAR AT THIS TIME PT ASISTED ONTO STRETCHER WITH ASSIST OF 2. PT GRABBING BILATERAL FLANK AREAS WITH MOVEMENT AND GRIMACING IN PAIN. PT NOTED WITH AUDIBLE WHEEZES ON EXHALATION. MD TO BEDSIDE RA SATS 98%
--- NOTE | 2017-01-16 08:24 | ED GENERAL ADULT ---
History of Present Illness General Chief Complaint: General Adult Stated Complaint: SOB,BODY PAIN Source: patient, family, old records Exam Limitations: no limitations Vital Signs & Intake/Output Vital Signs & Intake/Output Vital Signs Date Time Temp Pulse Resp B/P B/P Pulse O2 O2 Flow FiO2 Mean Ox Delivery Rate 01/16 0840 99 01/16 0826 98 Room Air 01/16 0806 97.8 87 20 130/75 98 Room Air Allergies Coded Allergies: NO KNOWN ALLERGIES (02/08/16) Reconcile Medications Amlodipine Besylate (Norvasc) 5 MG TABLET 1 TAB PO DAILY HTN (Reported) Furosemide 40 MG TABLET 1 TAB PO DAILY WATER PILL (Reported) Glimepiride 2 MG TABLET 1 TAB PO DAILY DIABETES (Reported) Losartan Potassium (Cozaar) 50 MG TABLET 1 TAB PO DAILY HEART (Reported) Metformin HCl 1,000 MG TABLET 1 TAB PO BID DIABETES (Reported) Potassium Chloride (K-Tab ER) 20 MEQ TABLET.ER 1 TAB PO DAILY SUPPLEMENT ( Reported) Rivaroxaban (Xarelto) 20 MG TABLET 1 TAB PO DAILY BLOOD THINNER (Reported) with food Simvastatin (Zocor*) 40 MG TABLET 1 TAB PO QPM CHOLESTEROL (Reported) Sitagliptin Phos/Metformin HCl (Janumet 50-500 MG Tablet) 50 MG-500 MG TABLET 1 TAB PO BID DIABETES (Reported) Verapamil HCl (Verapamil ER) 120 MG TABLET.ER 1 TAB PO DAILY HEART (Reported) Triage Note: PT TO ED C/O BACK PAIN X 3 DAYS. PT'S SISTER STATES ON THE DRIVE TO THE ED EVERY TIME THEY HIT A BUMP PT WOULD WINCE WITH PAIN. PT ALSO C/O "BREATHING NO GOOD". RA SATS 98%, PT NOTED WITH EXERTIONAL SOB. PT ALSO GRIMACING WITH MOVING FROM EKG STRETCHER BACK TO W/C.DENIES N/V/D. DENIES S/S. EKG DONE. Triage Nurses Notes Reviewed? yes HPI: Patient presents with chest, back and abdominal pain over the past few days. Pain is sharp and stabbing in nature. Pain increases with movements, bumps in the car and deep breath. The pain is "all over" but does not radiate into his neck, head, arms or legs. Pain is 10 out of 10. Patient also states that he is having difficulty breathing. Patient does have history of asthma. Patient states that he has a nonproductive cough. Patient denies fevers or chills. There is no nausea, vomiting, constipation or diarrhea. There is no dysuria. There is no anorexia. Food does not seem to change the abdominal pain. Past History Travel History Traveled to [place] past 21 day No Medical History Any Pertinent Medical History? 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 Relation not specified for: FH: diabetes mellitus FHx: stroke Hx Contributory? No Review of Systems Review of Systems Constitutional: Reports: no symptoms. EENTM: Reports: no symptoms. Respiratory: Reports: see HPI, cough, short of breath, wheezing. Cardiovascular: Reports: see HPI, chest pain. GI: Reports: see HPI, abdominal pain. Genitourinary: Reports: no symptoms. Musculoskeletal: Reports: see HPI, back pain. Skin: Reports: no symptoms. Neurological/Psychological: Reports: no symptoms. Hematologic/Endocrine: Reports: no symptoms. Immunologic/Allergic: Reports: no symptoms. All Other Systems: Reviewed and Negative Physical Exam Physical Exam General Appearance: well developed/nourished, alert, awake, anxious, moderate distress Head: atraumatic, normal appearance Eyes: Bilateral: PERRL, EOMI. Ears, Nose, Throat: normal pharynx, normal ENT inspection, hearing grossly normal Neck: normal inspection, supple, full range of motion, NO JVD Respiratory: wheezing, GOOD AIR ENTRY Cardiovascular: normal peripheral pulses, irregularly irregular Gastrointestinal: normal bowel sounds, soft, no organomegaly, tenderness ( DIFFUSE), VOLUNTARY GUARDING, NO REBOUND Back: normal inspection, normal range of motion Extremities: normal inspection, normal capillary refill, pedal edema Neurologic/Psych: no motor/sensory deficits, awake, alert, oriented x 3, normal mood/affect Skin: intact, normal color, warm/dry Lymphatic: no anterior cervical kenny Core Measures ACS in differential dx? No CVA/TIA Diagnosis: No Severe Sepsis Present: No Septic Shock Present: No Progress Differential Diagnoses I considered the following diagnoses in my evaluation of the patient: [ISCHEMIC BOWEL, AMI, PE (DOUNT SINCE HE IS ON XARELTO BUT STILL IN DIFFERENTIAL), DIVERTICULTITIS, ACS, MUSCULARSKELETAL PAIN.] Plan of Care: Orders Procedure Date/time Status LACTIC ACID 01/16 1133 Active Admit to inpatient 01/16 1056 Active TYPE & SCREEN (NOT X-MATCH) 01/16 1035 Active URINALYSIS 01/16 1032 Complete LEUKOCYTE POOR (PACKED CELLS) 01/16 1003 Active PARTIAL THROMBOPLASTIN TIME 01/16 0834 Complete PROTHROMBIN TIME 01/16 0834 Complete LACTIC ACID 01/16 0833 Complete Telemetry/Coil Connector 01/16 0826 Active TROPONIN LEVEL 01/16 0826 Complete LIPASE 01/16 0826 Complete COMPREHENSIVE METABOLIC PANEL 01/16 0826 Complete CBC WITHOUT DIFFERENTIAL 01/16 0826 Complete B-TYPE NATRIURETIC PEP (BNP) 01/16 0826 Complete AMYLASE 01/16 0826 Complete EKG 01/16 0756 Active Current Medications Sig/Estephanie Start time Last Medication Dose Stop Time Status Admin Sodium Chloride 1,000 ML BOLUS ONE 01/16 1015 AC 01/16 (Normal Saline 0.9%) 01/16 1114 1038 Laboratory Tests 01/16/17 1030: Urine Color YEL, Urine Clarity CLEAR, Urine pH 6.0, Ur Specific Hughes 1.010, Urine Protein NEG, Urine Ketones NEG, Urine Nitrite NEG, Urine Bilirubin NEG, Urine Urobilinogen 0.2, Ur Leukocyte Esterase NEG, Ur Microscopic EXAM NOT REQUIRED, Urine Hemoglobin NEG, Urine Glucose NEG 01/16/17 1005: PT 21.3 H, INR 2.04 H, APTT 38 H 01/16/17 0905: Lactic Acid 2.0 01/16/17 0905: Anion Gap 15, Estimated GFR 42 L, BUN/Creatinine Ratio 25.0, Glucose 151 H, Calcium 8.9, Total Bilirubin 0.7, AST 24, ALT 21, Alkaline Phosphatase 61, Troponin I < 0.01, [id number] Pept 2900 H, Total Protein 7.2, Albumin 3.9, Globulin 3.3, Albumin/Globulin Ratio 1.2, Amylase 216 H, Lipase 2088 H, CBC w Diff MAN DIFF ORDERED, RBC 3.88 L, MCV 60.3 L, MCH 17.9 L, RDW 24.2 H, MPV 8.1, Gran % 77.1 H, Lymphocytes % 12.1 L, Monocytes % 9.1, Eosinophils % 1.6, Basophils % 0.1, Absolute Granulocytes 8.5 H, Absolute Lymphocytes 1.3, Absolute Monocytes 1.0 H, Absolute Eosinophils 0.2, Absolute Basophils 0, Platelet Estimate VERIFIED BY SMEAR, Polychromasia 1+, Hypochromic-Microcytic 3+ , Poikilocytosis 2+, Anisocytosis 1+, Microcytic Cells 2+, Ovalocytes 1+, Elliptocytes 1+, Schistocytes , PUBS MCHC 29.7 L Diagnostic Imaging: Viewed by Me: Radiology Read. Discussed w/RAD: Radiology Read. Radiology Impression: PATIENT: EM CASTILLO PRESENT AGE: 76 PATIENT ACCOUNT NO: [id number] : 42 LOCATION: [facility] ORDERING PHYSICIAN: JOSE F GALLOWAY MD SERVICE DATE: 01/16/17 EXAM TYPE: CAT - CT ABD & PELVIS W/O IV CONTRAS EXAMINATION: CT ABDOMEN AND PELVIS WITHOUT CONTRAST CLINICAL INFORMATION: 76-year-old man with right upper quadrant pain. COMPARISON: Report of a CT from 01/26/2010 TECHNIQUE: Multidetector volumetric imaging was performed from the superior aspect of the liver through the pubic symphysis. Sagittal and coronal reformatted images were obtained on the technologist's workstation. DLP: 361 mGy-cm FINDINGS: Mild dependent changes are noted at the lung bases. There is a trace right sided effusion. Noncontrast assessment of the liver, spleen, pancreas, and adrenals is unremarkable. Lobular hypodense lesions are seen throughout both kidneys and are statistically most likely to reflect cysts. There is curvilinear opacity in the gallbladder fossa. The gallbladder itself is not well seen. Hyperdensity could reflect suture material related to prior cholecystectomy versus wall calcification or less likely small calculi in a nearly completely contracted gallbladder. There is no common bile duct dilation. There is no stranding or fluid in this location to suggest an inflammatory process. Nondilated loops of large and small bowel are unremarkable in appearance. The appendix is not clearly identified, although there is no stranding in the right lower quadrant to suggest acute appendicitis. The terminal ileum is not inflamed. There is mild prostatomegaly with the transverse diameter of the prostate measuring 5.3 cm. There are coarse prostatic calcifications. The seminal vesicles and bladder are unremarkable. IMPRESSION: No CT evidence of an acute intra-abdominal process. The gallbladder itself is not well visualized and may be completely contracted, perhaps with some wall calcification as described above. DICTATED BY: MATT PARKER MD DATE/TIME DICTATED :01/16/171042 PERSONAL FINANCIAL ADVISOR:LULY DATE/TIME TRANSCRIBED:01/16/171042 CONFIDENTIAL, DO NOT COPY WITHOUT APPROPRIATE AUTHORIZATION. < Electronically signed in Other Vendor System> SIGNED BY: MATT PARKER MD 1053 CXR Impression: PATIENT: EM CASTILLO PRESENT AGE: 76 PATIENT ACCOUNT NO: [id number] : 42 LOCATION: [facility] ORDERING PHYSICIAN: JOSE F GALLOWAY MD SERVICE DATE: 01/16/17 EXAM TYPE: RAD - XRY- PORTABLE CHEST XRAY EXAMINATION: XR PORTABLE CHEST CLINICAL INFORMATION: Chest pain COMPARISON: 12/27/2014 TECHNIQUE: Portable AP 75 degrees upright view of the chest was obtained. FINDINGS: Left pectoral dual-lead ICD identified. The cardiac silhouette is moderately enlarged. There is mild linear scarring in the left midlung, unchanged. Lungs and pleural spaces are otherwise clear. No evidence of edema. IMPRESSION: Enlarged cardiac silhouette, unchanged. The lungs are clear with minor linear scarring in the left midlung. DICTATED BY: CRISTAL TUCKER MD DATE/TIME DICTATED:01/16/17928 PERSONAL FINANCIAL ADVISOR:LULY DATE/TIME TRANSCRIBED:01/16/17928 CONFIDENTIAL, DO NOT COPY WITHOUT APPROPRIATE AUTHORIZATION. <Electronically signed in Other Vendor System> SIGNED BY: CRISTAL TUCKER MD 01/16/17933 Initial ED EKG: AFIB, LVH, nonspecific ST T wave chg Prior EKG: unchanged Rhythm Strip: atrial fibrillation Comments: Patient required a transfusion last month. Patient has not followed up with gastroenterology. Patient denies any blood in his stool. Patient states that he occasionally gets nosebleeds and he was told that was why he was anemic. Departure Departure Disposition: STILL A PATIENT Condition: Stable Clinical Impression Primary Impression: Pancreatitis Referrals: CASSIUS BLOOM,LYNN Hankins (PCP/Family) Departure Forms: Customer Survey General Discharge Information Admission Note Spoke With: NASIM BLOOM,VIKTORIYA Soria Documentation of Exam: Documentation of any treatments & extenuating circumstances including Concerns Regarding Discharge (functional status, medication knowledge or non-compliance, living conditions, etc.) that warrant an admission rather than observation: [ Nothing by mouth, IV fluids, IV pain control, gastroenterology consultation, transfusion] Critical Care Note Critical Care Note Critical Care Time: non-applicable
--- NOTE | 2017-01-16 08:27 | NUR ---
RESP PAGED FOR TREATMENT
--- NOTE | 2017-01-16 09:13 | NUR ---
IV ESTABLISHED LABS DRAWN AND SENT
--- NOTE | 2017-01-16 09:14 | NUR ---
PORTABLE X-RAY AT BEDSIDE
--- NOTE | 2017-01-16 09:20 | NUR ---
PT MEDICATED WITH TORADOL 15MG IVP
[2017-01-16 09:26] LABS: ABSOLUTE BASOPHIL COUNT 0 /CUMM (0.0-0.2); ABSOLUTE EOSINOPHIL COUNT 0.2 /CUMM (0.0-0.7); ABSOLUTE GRANULOCYTE CT 8.5 /CUMM (1.4-6.5); ABSOLUTE LYMPH COUNT 1.3 /CUMM (1.2-3.4); BASOPHIL % 0.1 % (0.0-2.0); EOSINOPHIL % 1.6 % (0-5); GRANULOCYTE % 77.1 % (42.2-75.2); HEMATOCRIT 23.4 % (42-52); MEAN CORPUSCULAR HGB 17.9 PG (27.0-31.0); MEAN CORPUSCULAR HGB CONC 29.7 G/DL (33.0-37.0); MEAN CORPUSCULAR VOLUME 60.3 FL (80.0-94.0); MEAN PLATELET VOLUME 8.1 FL (7.4-10.4); PLATELET COUNT 212 /CUMM (130-400); RBC DISTRIBUTION WIDTH 24.2 % (11.5-14.5); RED BLOOD CELL CT 3.88 /CUMM (4.70-6.10)
--- NOTE | 2017-01-16 09:34 | RADIOLOGY REPORT ---
EXAMINATION: XR PORTABLE CHEST CLINICAL INFORMATION: Chest pain COMPARISON: 12/27/2014 TECHNIQUE: Portable AP 75 degrees upright view of the chest was obtained. FINDINGS: Left pectoral dual-lead ICD identified. The cardiac silhouette is moderately enlarged. There is mild linear scarring in the left midlung, unchanged. Lungs and pleural spaces are otherwise clear. No evidence of edema. IMPRESSION: Enlarged cardiac silhouette, unchanged. The lungs are clear with minor linear scarring in the left midlung.
--- NOTE | 2017-01-16 09:35 | NUR ---
CRITICAL TEST RESULTS [id number] EM CASTILLO 76 M TESTS AND RESULTS: HGB 7.0 HCT 23.4 Results received and read back by: ENDY DIAZ Results received date and time: 01/16/17 0935 The following provider was notified of the results, and read the results back: DR GALLOWAY Notified date and time: 01/16/17 at 0935
--- NOTE | 2017-01-16 09:41 | NUR ---
CRITICAL TEST RESULTS [id number] EM CASTILLO 76 M TESTS AND RESULTS: LACTIC ACID 2.0 Results received and read back by: ENDY DIAZ Results received date and time: 01/16/17 0942 The following provider was notified of the results, and read the results back: DR GALLOWAY Notified date and time: 01/16/17 at 0942
--- NOTE | 2017-01-16 10:00 | NUR ---
DR GALLOWAY AT BEDSIDE WITH PT'S SISTER JARROD TO DISCUSS POC
--- NOTE | 2017-01-16 10:22 | NUR ---
PT TO AND FROM CT VIA STRETHCER. DR ROUSE AT BEDSIDE FOR EVAL
--- NOTE | 2017-01-16 10:39 | NUR ---
URINE SAMPLE OBTAINED BY RUFINO LARA AND SENT TO LAB ([facility]). NS BOLUS STARTED. PT MEDICATED WITH MORPHINE 4MG IVP
[2017-01-16 10:46] LABS: PT 21.3 SEC (9.4-12.5); PTT 38 SEC (25-37)
--- NOTE | 2017-01-16 10:54 | CT SCAN REPORT ---
EXAMINATION: CT ABDOMEN AND PELVIS WITHOUT CONTRAST CLINICAL INFORMATION: 76-year-old man with right upper quadrant pain. COMPARISON: Report of a CT from 01/26/2010 TECHNIQUE: Multidetector volumetric imaging was performed from the superior aspect of the liver through the pubic symphysis. Sagittal and coronal reformatted images were obtained on the technologist's workstation. DLP: 361 mGy-cm FINDINGS: Mild dependent changes are noted at the lung bases. There is a trace right sided effusion. Noncontrast assessment of the liver, spleen, pancreas, and adrenals is unremarkable. Lobular hypodense lesions are seen throughout both kidneys and are statistically most likely to reflect cysts. There is curvilinear opacity in the gallbladder fossa. The gallbladder itself is not well seen. Hyperdensity could reflect suture material related to prior cholecystectomy versus wall calcification or less likely small calculi in a nearly completely contracted gallbladder. There is no common bile duct dilation. There is no stranding or fluid in this location to suggest an inflammatory process. Nondilated loops of large and small bowel are unremarkable in appearance. The appendix is not clearly identified, although there is no stranding in the right lower quadrant to suggest acute appendicitis. The terminal ileum is not inflamed. There is mild prostatomegaly with the transverse diameter of the prostate measuring 5.3 cm. There are coarse prostatic calcifications. The seminal vesicles and bladder are unremarkable. IMPRESSION: No CT evidence of an acute intra-abdominal process. The gallbladder itself is not well visualized and may be completely contracted, perhaps with some wall calcification as described above.
--- NOTE | 2017-01-16 11:22 | History & Physical ---
LUPE BLOOM,DOMINICK 01/16/17 1122: General Information and HPI History of Present Illness: Ponce is 76-year-old [place] man who presents to the emergency department with a chief complaint of abdominal pain that started 3 days ago. The patient's primary language is [place], collateral history and translation obtained via his sister Serena, who works in the inpatient pharmacy at the hospital. She explains that her brother has been experiencing primarily back pain, with radiation to the epigastric area, but he also complains of diffuse abdominal discomfort and increased abdominal distention and bloating that is especially gotten worse the last 24 hours. He does not drink any alcohol, interestingly Xarelto was discontinued due to recurrent episodes of severe epistaxis requiring PRBC transfusion and he was started on Eliquis 5mg bid for non-valvular atrial fibrillation. His last episode of epistaxis was 2 weeks ago. He has never experienced panic attacks before, as far as the patient remember he's never had any gall bladder issues i.e. stones. At present he denies any lightheadedness dizziness chest pain or discomfort palpitations nausea vomiting diarrhea dysuria or any other symptoms after review in detail. Allergies/Medications Allergies: Coded Allergies: NO KNOWN ALLERGIES (02/08/16) Home Med list Amlodipine Besylate (Norvasc) 5 MG TABLET 1 TAB PO DAILY HTN (Reported) Apixaban (Eliquis) 5 MG TABLET 1 TAB PO BID atrial fibrillation (Reported) Furosemide 40 MG TABLET 1 TAB PO DAILY WATER PILL (Reported) Glimepiride 2 MG TABLET 1 TAB PO DAILY DIABETES (Reported) Losartan Potassium (Cozaar) 50 MG TABLET 1 TAB PO DAILY HEART (Reported) Metformin HCl 1,000 MG TABLET 1 TAB PO BID DIABETES (Reported) Potassium Chloride (K-Tab ER) 20 MEQ TABLET.ER 1 TAB PO DAILY SUPPLEMENT ( Reported) Simvastatin (Zocor*) 40 MG TABLET 1 TAB PO QPM CHOLESTEROL (Reported) Sitagliptin Phos/Metformin HCl (Janumet 50-500 MG Tablet) 50 MG-500 MG TABLET 1 TAB PO BID DIABETES (Reported) Verapamil HCl (Verapamil ER) 120 MG TABLET.ER 1 TAB PO DAILY HEART (Reported) Past History Travel History Traveled to [place] past 21 day No Medical History Neurological: NONE EENT: NONE Cardiovascular: AFIB, hypertension, hyperlipidemia Respiratory: asthma, obstructive sleep apnea Gastrointestinal: NONE Hepatic: NONE Renal: NONE Musculoskeletal: NONE Psychiatric: NONE Endocrine: diabetes Blood Disorders: NONE Cancer(s): NONE COMPUTER 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 Relation not specified for: FH: diabetes mellitus FHx: stroke Psychosocial History Where do you live? Home Who Do You Live With? 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 All Other Systems: Reviewed and Negative Exam & Diagnostic Data Last 24 Hrs of Vital Signs/I&O Vital Signs Date Time Temp Pulse Resp B/P B/P Pulse O2 O2 Flow FiO2 Mean Ox Delivery Rate 01/16 1120 97.3 78 20 123/57 98 Room Air 01/16 0840 99 01/16 0826 98 Room Air 01/16 0806 97.8 87 20 130/75 98 Room Air Intake & Output 01/16 1600 01/16 0800 01/16 0000 Intake Total Output Total Balance Patient 172 lb Weight Weight Reported by Patient Measurement Method Physical Exam General Appearance Alert, Oriented X3, Cooperative, No Acute Distress Skin No Rashes, No Breakdown, No Significant Lesion Skin Temp/Moisture Exam: Warm/Dry Sepsis Skin Exam (color): Normal for Ethnicity HEENT Atraumatic, PERRLA, EOMI, Mucous Membr. moist/pink Neck Supple, No JVD, No thryomegaly, +2 Carotid Pulse wo Bruit, No LAD Lymphatic Cervical nl Cardiovascular Normal S1, Normal S2, No Murmurs, irregularly irregular Lungs Clear to Auscultation, Normal Air Movement Abdomen Normal Bowel Sounds, tender distended nonsurgical abdomen that is tense and taut, equivocal Beckett sign Neurological Normal Speech, Strength at 5/5 X4 Ext, Normal Tone Extremities No Clubbing, No Cyanosis, No Edema, Normal Pulses, No Tenderness/ Swelling Vascular Normal Pulses, Pulses Symmetrical Sepsis Peripheral Pulse Location: Radial Sepsis Peripheral Pulse Exam: Normal Sepsis Cap Refill Exam: <2 Sec Last 24 Hrs of Labs/Colby: Laboratory Tests 01/16/17 1130: Lactic Acid 1.8 01/16/17 1032: Ur Random Creatinine 38.3, Ur Random Sodium 77, Ur Random Potassium 29.9, Fraction Sodium Excret 2.3 H 01/16/17 1030: Urine Color YEL, Urine Clarity CLEAR, Urine pH 6.0, Ur Specific [place] 1.010, Urine Protein NEG, Urine Ketones NEG, Urine Nitrite NEG, Urine Bilirubin NEG, Urine Urobilinogen 0.2, Ur Leukocyte Esterase NEG, Ur Microscopic EXAM NOT REQUIRED, Urine Hemoglobin NEG, Urine Glucose NEG 01/16/17 1005: PT 21.3 H, INR 2.04 H, APTT 38 H 01/16/17 0905: Lactic Acid 2.0 01/16/17 0905: Anion Gap 15, Estimated GFR 42 L, BUN/Creatinine Ratio 25.0, Glucose 151 H, Calcium 8.9, Iron 14 L, TIBC Pending, Ferritin Pending, Total Bilirubin 0.7, AST 24, ALT 21, Alkaline Phosphatase 61, Troponin I < 0.01, Obb-O-Mryrmvpsvrx Pept 2900 H, Total Protein 7.2, Albumin 3.9, Globulin 3.3, Albumin/Globulin Ratio 1.2, Amylase 216 H, Lipase 2088 H, CBC w Diff MAN DIFF ORDERED, RBC 3.88 L, MCV 60.3 L, MCH 17.9 L, RDW 24.2 H, MPV 8.1, Gran % 77.1 H, Lymphocytes % 12.1 L, Monocytes % 9.1, Eosinophils % 1.6, Basophils % 0.1, Absolute Granulocytes 8.5 H, Absolute Lymphocytes 1.3, Absolute Monocytes 1.0 H, Absolute Eosinophils 0.2, Absolute Basophils 0, Platelet Estimate VERIFIED BY SMEAR, Polychromasia 1+, Hypochromic-Microcytic 3+, Poikilocytosis 2+, Anisocytosis 1+, Microcytic Cells 2+, Ovalocytes 1+, Elliptocytes 1+, Schistocytes , PUBS MCHC 29.7 L, Retic Count 2.24 H 01/16/17 0826: Haptoglobin Pending Diagnostic Data EKG Results Atrial fibrillation CXR Results No pleural effusions Other Results SERVICE DATE: 01/16/17 EXAM TYPE: CAT - CT ABD & PELVIS W/O IV CONTRAS EXAMINATION: CT ABDOMEN AND PELVIS WITHOUT CONTRAST CLINICAL INFORMATION: 76-year-old man with right upper quadrant pain. COMPARISON: Report of a CT from 01/26/2010 TECHNIQUE: Multidetector volumetric imaging was performed from the superior aspect of the liver through the pubic symphysis. Sagittal and coronal reformatted images were obtained on the technologist's workstation. DLP: 361 mGy-cm FINDINGS: Mild dependent changes are noted at the lung bases. There is a trace right sided effusion. Noncontrast assessment of the liver, spleen, pancreas, and adrenals is unremarkable. Lobular hypodense lesions are seen throughout both kidneys and are statistically most likely to reflect cysts. There is curvilinear opacity in the gallbladder fossa. The gallbladder itself is not well seen. Hyperdensity could reflect suture material related to prior cholecystectomy versus wall calcification or less likely small calculi in a nearly completely contracted gallbladder. There is no common bile duct dilation. There is no stranding or fluid in this location to suggest an inflammatory process. Nondilated loops of large and small bowel are unremarkable in appearance. The appendix is not clearly identified, although there is no stranding in the right lower quadrant to suggest acute appendicitis. The terminal ileum is not inflamed. There is mild prostatomegaly with the transverse diameter of the prostate measuring 5.3 cm. There are coarse prostatic calcifications. The seminal vesicles and bladder are unremarkable. IMPRESSION: No CT evidence of an acute intra-abdominal process. The gallbladder itself is not well visualized and may be completely contracted, perhaps with some wall calcification as described above. Assessment/Plan Assessment: Ponce is 76-year-old man with a medical history of hypertension and type 2 diabetes obstructive sleep apnea atrial fibrillation with supraventricular tachycardia status post ICD,; asthma / bronchiolitis, gout (not on chronic prophylactic therapy) who presents with abdominal complaints consistent with acute pancreatitis and now found to be profoundly anemic with no evidence of ongoing bleeding. He does not meet SIRS criteria, his BISAP score is 2, [id number] score is 4. He does have CAD risk equivalents i.e. diabetes. Presume DIONNA, because previous Creatinine levels are during episodes of severe hemorrhage. DIONNA is likely from third spacing secondary to pancreatitis. Anemia is likely a combination of acute blood loss and iron deficiency, supporting this is the history of recurrent epistaxis and the low MCV and high RDW. Echocardiogram 01/06/2015) reveals mild concentric hypertrophy, mild left atrial enalrgement, aortic sclerosis without significant stenosis, and mild Pulmonary hypertension, therefore aggressive fluid resuscitation should be used with caution to avoid volume overload. - Problems - Acute pancreatitis Multifactorial Anemia DIONNA - on diuretic therapy Afib SVT Diabetes Asthma - Plan - Keep NPO LRS @ 250cc/hr x 3L Hydromorphine .5mg iv q3h pain stool softeners while on opioids RUQ U/S Type & Screen Keep 2U PRBC on standby with transfusion goal Hb>=8 (CAD risk factors) Check Serum Iron, Ferritin, TIBC, Reticulocyte count (correct, reticulocyte index) Repeat CBC, BMP in am Obtain urine lytes, urea; check Fractional excretion of urea (FEUrea) Hold Eliquis, oral anti-hyperglycemics Hold lasix, ARB while hypovolemic, and in setting of ongoing DIONNA Continue verapamil Novolin R s/s Accuchecks q6h ALPS for DVT ppx FULL Code As Ranked By This Provider Problem List: 1. Pancreatitis Core Measures/Miscellaneous Acute Coronary Syndrome ACS Diagnosis: No Cerebrovascular Accident CVA/TIA Diagnosis: No Congestive Heart Failure CHF Diagnosis: No Venous Thromboembolism VTE Risk Factors: Age > 40 No [facility] V[facility] prophylaxis d/t: No contraindications No VTE Pharm Prophylaxis d/t: No contraindications VTE Diagnosis: No VTE Type: NONE VTE Confirmed by (Test): NONE Severe Sepsis Severe Sepsis Present: No Septic Shock Septic Shock Present: No Miscellaneous Documentation Attending Case Discussed With: kayden lee Primary Care Physician: LYNN HAMMONDS MD Patient sees these Specialists eduarda villaseñor Level of Patient Care: General Medicine NASIM BLOOM,KAYDEN 01/16/17 1604: Attending MD Review Statement Attending Statement Attending MD Statement: examined this patient, discuss w/resident/PA/CUT TO LENGTH OPERATOR, agreed w/resident/PA/CUT TO LENGTH OPERATOR, discussed with family, reviewed EMR data (avail), discussed with nursing, discussed with case mgmt, reviewed images, amended to note Attending Assessment/Plan: Seen and examined independently in the ER discussed with personnel officer Full history as noted above Exam as noted IMPRESSION PT with sig htn, tracheomalacia, type 2 diabetes obstructive sleep apnea atrial fibrillation with supraventricular tachycardia status post ICD,; asthma / bronchiolitis, gout now with SIG abd pain since this morning Issues Acute pancreatitis of unclear etiology Anemia DIONNA Svt pafib on anticoag HTN, HLD JUANITO noncompliant PUlm htn due to above issues REC Admit NPO GI consult in am IVF Follow labs HOld arb and lasix Cont anticoag if stable in am Check guiac in the stool Insulin coverage Prn nebs (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
--- NOTE | 2017-01-16 11:30 | NUR ---
REPEAT LACTIC ACID DRAWN AND SENT TO LAB.
--- NOTE | 2017-01-16 11:41 | NUR ---
HOUSE STAFF AT BEDSIDE FOR EVAL
--- NOTE | 2017-01-16 12:20 | NUR ---
PRBC INFUSION STARTED AT 60ML/HR. 15 MINUTE RECHECK OF VITAL SIGNS SHOWED NO SIGNIFICANT CHANGE. PT DENIED HAVING ANY S/S OF TRANSFUSION REACTION. INFUSION INCREASED TO 100ML/HR. PT TOLERATING WELL
[2017-01-16] MEDS ORDERED: ELIQUIS5 M1 PO (12:21)
--- NOTE | 2017-01-16 13:11 | NUR ---
PT'S BLOOD GLUCOSE 119. PT REFUSED ADMIN OF INSULIN STATING HE DOES NOT TAKE INSULIN AT HOME AND THAT HE DOESN'T WANT IT NOW. LUPE BLOOM AWARE
--- NOTE | 2017-01-16 13:13 | NUR ---
REPORT CALLED TO ALTA LARA
--- NOTE | 2017-01-16 13:44 | NUR ---
PT TO HAVE ULTRASOUND NOW INSTEAD OF TOMORROW. DISTRIBUTION AND FLOOR NOTIFIED. US AT BEDSIDE. LR STARTED AT 250ML/HR
--- NOTE | 2017-01-16 14:01 | NUR ---
US COMPLETE. DISTRIBUTION CALLED FOR TRANSPORT
--- NOTE | 2017-01-16 14:12 | NUR ---
PATIENT ARRIVED TO FLOOR ALERT AND ORIENTED X 3, VSS. ORIENTED TO ROOM AND CALL FERNANDES. RN BERTRAND AT BEDSIDE, PRBC INFUSING W/O ISSUE. PATIENT C/O PAIN TO LOWER BACK, DILAUDID ORERED AND ADMINISTERED. THIS RN FOLLOWED UP WITH MD GALLOWAY FROM ER TO VERIFY NEED FOR 3UPRBC IN TOTAL. RATIONALE WAS GIVEN THAT CONSIDERING PATIENTS AGE AND RECENT FREQUENT VISITS TO ER FOR LOW H/H, 3 UNITS WOULD BE NECESSARY TO MAINTAIN STABLE H/H. THIS RN REPORTED THIS DISCUSSION TO ONCOMING RN. CBC ENTERED TO BE DRAWN AT 20:00. NO FURTHER ORDERS AT THIS TIME WILL CONTINUE TO MONITOR.
--- NOTE | 2017-01-16 14:19 | ULTRASOUND REPORT ---
EXAMINATION: US ABDOMEN LIMITED CLINICAL INFORMATION: Gallstone pancreatitis.. COMPARISON: CT abdomen and pelvis of the same date. TECHNIQUE: Real-time imaging of the right upper quadrant abdominal viscera. FINDINGS: PANCREAS: Normal. The visualized pancreatic head and body are normal in appearance. The remainder of the pancreas is obscured from visualization by the overlying bowel gas. LIVER: There is a longitudinal span of 16.0 cm. The liver demonstrates normal size, contour and echogenicity. No focal lesion or intrahepatic biliary duct dilatation. GALLBLADDER: Normal. The gallbladder is physiologically distended without evidence of stones, sludge, polyps, wall thickening or pericholecystic fluid. COMMON BILE DUCT: Normal in caliber measuring 0.3 cm in diameter. RIGHT KIDNEY: At the interpolar aspect, a 6.7 cm in maximal diameter anechoic cyst is seen, at the lower pole a 2.9 cm in maximal diameter anechoic cyst is seen. No hydronephrosis. No renal calculi or focal parenchymal lesions. The kidney measures 9.9 cm in maximum dimension. FREE FLUID: None. IMPRESSION: 1. Limited ultrasound evaluation the pancreas, as above. 2. No cholelithiasis, cholecystitis or choledocholithiasis is seen. 3. Anechoic right renal cysts are incidentally noted.
[2017-01-16 14:34] VITALS: BP 132/70
--- NOTE | 2017-01-16 16:05 | Admission Certification ---
Admission Certification Certification Statement - As attending physician, I certify that at the time of - admission, based on clinical presentation, severity of - symptoms, need for further diagnostic testing and - therapeutic interventions, and risk of adverse outcomes - without in-hospital treatment, in my clinical assessment, - this patient requires an acute hospital stay for a minimum - of two nights or longer. I have also considered psychsocial - factors such as support system, advanced age, financial - issues, cognitive issues, and failed out-patient treatments, - past re-admission history, safety of patient, and lack of - compliance as applicable. Specific rationale supporting this admission is: Sig pancreatitis
--- NOTE | 2017-01-16 16:30 | NUR ---
RN SPOKE TO AREA MANAGER RUFUS ROJO REGARDING CONCERNS FOR PT. PT IS ON HIGH RATE OF IV FLUIDS AND IS ORDERED MULTIPLE UNITS OF BLOOD WELL. PT NORMALLY TAKES PO LASIX AT HOME. CARDIAC HX PRESENT. PER DISCUSSION WITH MD RN TO HANG 2ND UNIT WHEN AVAILABLE AND DRAW CBC AT SCHEDULED 1999 AND RE-EVALUATE IF 3RD UNIT NECESSARY. WILL CONT TO MONITOR.
[2017-01-16 20:00] VITALS: BP 128/80
[2017-01-16 21:29] LABS: ABSOLUTE BASOPHIL COUNT 0.1 /CUMM (0.0-0.2); ABSOLUTE EOSINOPHIL COUNT 0.2 /CUMM (0.0-0.7); ABSOLUTE GRANULOCYTE CT 7.5 /CUMM (1.4-6.5); ABSOLUTE LYMPH COUNT 1.5 /CUMM (1.2-3.4); ABSOLUTE MONOCYTE COUNT 1.2 /CUMM (0.10-0.60); BASOPHIL % 0.7 % (0.0-2.0); EOSINOPHIL % 1.6 % (0-5); GRANULOCYTE % 72.2 % (42.2-75.2); MEAN CORPUSCULAR HGB CONC 30.8 G/DL (33.0-37.0); MEAN PLATELET VOLUME 8.3 FL (7.4-10.4); PLATELET COUNT 185 /CUMM (130-400); RBC DISTRIBUTION WIDTH 29.8 % (11.5-14.5); RED BLOOD CELL CT 4.34 /CUMM (4.70-6.10); WHITE BLOOD CELL COUNT 10.4 /CUMM (4.8-10.8)
[2017-01-16 21:34] LABS: HEMATOCRIT 28.8 % (42-52); MEAN CORPUSCULAR HGB 20.4 PG (27.0-31.0); MEAN CORPUSCULAR VOLUME 66.2 FL (80.0-94.0)
[2017-01-16 22:44] VITALS: BP 128/80
--- NOTE | 2017-01-17 05:00 | NUR ---
NURSING NOTE: CAUSTIC ROOM OPERATOR 137 NOTIFIED THAT GET UP AND GO TEST PERFORMED AND PT NOT ABLE TO GET UP W/O ASSIST. PT CONSULT IN PLACE. PT VERY WHEEZY AND SOB AT REST AND W/ AMBULATION. PER CAUSTIC ROOM OPERATOR 137 IT IS OKAY TO PUT PT ON O2 B/C PT IS HAVING ABDOMINAL PAIN AND HAS HX ASTHMA. WILL CONTINUE TO MONITOR.
[2017-01-17 06:49] VITALS: BP 144/80
--- NOTE | 2017-01-17 06:56 | PN- Housestaff ---
Subjective Follow-up For: Acute Pancreatitis Anema Acute Kidney Injury Subjective: Patient seen and examined. He is seen sitting upright in his chair at bedside resting comfortably. He appears to be in no acute distress. Subjective complaints are difficult to obtain as patient has limited pashto, however he expresses understand when spoken to slowly with hand jestures. When asked if he has any chest or abdominal pain, he shakes his head and says no. He is asking to eat. Specific review of systems complaints are difficult to obtain. No overnight events reported. Review of Systems Constitutional: Reports: see HPI. Objective Last 24 Hrs of Vital Signs/I&O Vital Signs Date Time Temp Pulse Resp B/P B/P Pulse O2 O2 Flow FiO2 Mean Ox Delivery Rate 01/17 1200 Room Air Room Air 01/17 0936 101 164/100 01/17 0800 97 Room Air Room Air 01/17 0649 98.9 102 20 144/80 99 01/17 0000 97 Nasal 2.0L Cannula 01/16 2244 97.9 82 20 128/80 95 Room Air 01/16 2000 99.0 79 20 128/80 97 Room Air 01/16 1434 98.8 76 132/70 98 Room Air 01/16 1412 20 01/16 1412 98 Room Air Room Air Intake & Output 01/17 1600 01/17 0800 01/17 0000 Intake Total 1000 750 Output Total 650 775 Balance 350 -25 Intake, IV 1000 750 Intake, Oral 0 0 Output, Urine 650 775 Physical Exam General Appearance: Alert, Oriented X3, Cooperative, No Acute Distress Other Physical Findings: Generel- well developed, well nourished obese elderly monegasque man in no acute distress HEENT- NCAT, PERRL, EOMI, anicteric sclera CVS- S1, S2 w/o m/g/r Resp- CTA bilaterally GI- tense, nontender, distended, no guarding/rigidity, bowel sounds intact Neuro- Awake and alert, CN II - XII grossly intact Ext- normal pulses, no cyanosis/clubbing, 1+ nonpitting edema Current Medications: Current Medications Sig/Estephanie Start time Last Medication Dose Route Stop Time Status Admin Apixaban 5 MG BID 01/17 1000 AC 01/17 PO 1059 Diphenhydramine HCl 25 MG Q6P PRN 01/16 1130 AC IV Docusate Sodium 100 MG BID 01/16 2200 AC 01/17 PO 0934 Hydromorphone HCl 0.5 MG Q3P PRN 01/16 1130 AC 01/17 IV 1059 Insulin Human Regular 0 Q6 01/16 1856 AC SC Insulin Human Regular 0 Q6 01/16 1200 DC SC Lactated Ringer's 1,000 ML Q10H 01/16 2100 CAN IV Lactated Ringer's 1,000 ML Q4H 01/16 1130 DC 01/17 IV 01/16 2329 0315 Ondansetron HCl 4 MG Q6P PRN 01/16 1130 AC IV Polyethylene Glycol 17 GM AT BEDTIME 01/16 2200 AC 01/16 PO 214 Senna/Docusate Sodium 2 TAB AT BEDTIME 01/16 2200 AC 01/16 PO 214 Verapamil HCl 120 MG DAILY 01/17 1000 AC 01/17 PO 0936 Last 24 Hrs of Lab/Colby Results Last 24 Hrs of Labs/Mics: Laboratory Tests 01/17/17 0633: Anion Gap 17 H, Estimated GFR 54 L, BUN/Creatinine Ratio 23.8, CBC w Diff NO MAN DIFF REQ, RBC 4.58 L, MCV 66.4 L, MCH 20.2 L, RDW 29.4 H, MPV 8.5, Gran % 83.7 H, Lymphocytes % 4.9 L, Monocytes % 10.5 H, Eosinophils % 0.8, Basophils % 0.1, Absolute Granulocytes 10.6 H, Absolute Lymphocytes 0.6 L, Absolute Monocytes 1.3 H, Absolute Eosinophils 0.1, Absolute Basophils 0, PUBS MCHC 30.4 L 01/16/172113: Anion Gap 16, Estimated GFR 50 L, BUN/Creatinine Ratio 25.0, CBC w Diff NO MAN DIFF REQ, RBC 4.34 L, MCV 66.2 L, MCH 20.4 L, RDW 29.8 H, MPV 8.3, Gran % 72.2, Lymphocytes % 14.5 L, Monocytes % 11.0 H, Eosinophils % 1.6, Basophils % 0.7, Absolute Granulocytes 7.5 H, Absolute Lymphocytes 1.5, Absolute Monocytes 1.2 H, Absolute Eosinophils 0.2, Absolute Basophils 0.1, PUBS MCHC 30.8 L Assessment/Plan Assessment: Patient remains NPO while on intravenous lactated ringers. He received two units of packed red blood cells with adequate improvement of his hemoglobin. He was restarted on Eliquis as he has no obvious source of active bleeing. Lasix remains on hold as his creatinine is still elevated; he does not have any evidense of acute fluid overload. He is to be evaluated by gastroenterology and cardiology today, recommendations pending. Acute Pancreatitis Patient with no known gastrointestinal history or alcohol seen for evaluation of abdominal pain. Vitals signs within normal limits in the ED. Lipase 2088, WBC 11.0. CT negative for acute abdominal pathology. US abdomin also negative. -General Medicine -NPO -Pain control -Lactated Ringers @ 250mL/hr -Zofran 4mg IV Q6H PRN nausea -GI Consult Acute Kidney Injury / Anemia -Avoid NSAIDs and Nephrotoxic medications -Type & Screen -Maintain hemoglobin >8.0, transfuse as needed -PRBC transfused: 2 -Lasix/Losartan held -Daily CBC / BEP Atrial Fibrillation / SVT S/P AICD / Hypertension Patient of Dr. Naresh Sparks. Cardiology consult placed for evaluation of anticoagulation in the context of anemia. -Eliquis 5mg PO BID -Verapamil 120mg PO Daily -Cardiology consult Non-insulin Dependent Diabetes Mellitus -Accuchecks TIDAC/HS -Hold oral hypoglycemics -Novolin SSI while NPO -Diabetic diet when eating Obstructive Sleep Apnea-Nocturnal CPAP Hyperlipidemia-pravastatin held while NPO Pain Plan-Dilaudid Bowel Regimen-Senna/Colace/Miralax Diet-NPO DVT PPx-ALPS / Eliquis Code Status- FULL CODE Problem List: 1. Pancreatitis Pain Ratin Pain Location: Abdomen Pain Goal: Pain 7 or less Pain Plan: See assessment Tomorrow's Labs & Rationales: CBC-leukocytosis/anemia BEP-DIONNA
[2017-01-17 08:10] LABS: ABSOLUTE BASOPHIL COUNT 0 /CUMM (0.0-0.2); ABSOLUTE EOSINOPHIL COUNT 0.1 /CUMM (0.0-0.7); ABSOLUTE GRANULOCYTE CT 10.6 /CUMM (1.4-6.5); ABSOLUTE LYMPH COUNT 0.6 /CUMM (1.2-3.4); ABSOLUTE MONOCYTE COUNT 1.3 /CUMM (0.10-0.60); BASOPHIL % 0.1 % (0.0-2.0); EOSINOPHIL % 0.8 % (0-5); HEMATOCRIT 30.4 % (42-52); MEAN CORPUSCULAR HGB 20.2 PG (27.0-31.0); MEAN CORPUSCULAR HGB CONC 30.4 G/DL (33.0-37.0); MEAN CORPUSCULAR VOLUME 66.4 FL (80.0-94.0); MEAN PLATELET VOLUME 8.5 FL (7.4-10.4); PLATELET COUNT 197 /CUMM (130-400); RBC DISTRIBUTION WIDTH 29.4 % (11.5-14.5); RED BLOOD CELL CT 4.58 /CUMM (4.70-6.10); WHITE BLOOD CELL COUNT 12.7 /CUMM (4.8-10.8)
--- NOTE | 2017-01-17 09:30 | PN- Att Addend ---
Attending Addendum Attending Brief Note Patient complains of persistent abdominal pain and requesting for diet. General Appearance: Alert, No Acute Distress Skin: Grossly normal HEENT: PEERLA Neck: Supple, No JVD Cardiovascular: Regular Rate, Normal S1, Normal S2, No Murmurs Lungs: Clear to Auscultation, Normal Air Movement Abdomen: Distended abdomen Neurological: Normal Speech, Strength at 5/5 X4 Ext, Cranial Nerves 3-12 NL, Reflexes 2+ Extremities: No Clubbing, No Cyanosis, No Edema Vascular: Normal Pulses Assessment Patient is having persistent abdominal pain. No signs of gallstone pancreatitis. No clear etiology. We'll continue IV hydration, hold Lasix and get a GI evaluation. Status post 2 unit PRBC. Anemia likely the setting of epistaxis that was ongoing until recently when he was switched to ELIQUIS. We will resume Eliquis. Bilateral knee pain is likely secondary to arthritis. Plan Continue IV hydration Keep nothing by mouth GI evaluation Hold Lasix Guaiac stools Resume Eliquis voltaren gel bilateral knees twice a day Continue other medications Current Medications Sig/Estephanie Start time Last Medication Dose Route Stop Time Status Admin Apixaban 5 MG BID 01/17 1000 AC PO Diphenhydramine HCl 25 MG Q6P PRN 01/16 1130 AC IV Docusate Sodium 100 MG BID 01/16 2200 AC 01/16 PO 2145 Hydromorphone HCl 0.5 MG Q3P PRN 01/16 1130 AC 01/17 IV 0524 Insulin Human Regular 0 Q6 01/16 1856 AC SC Insulin Human Regular 0 Q6 01/16 1200 DC SC Lactated Ringer's 1,000 ML Q10H 01/16 2100 CAN IV Lactated Ringer's 1,000 ML Q4H 01/16 1130 DC 01/17 IV 01/16 2329 0315 Morphine Sulfate 0 .STK-MED ONE 01/16 1034 DC .ROUTE Morphine Sulfate 4 MG ONCE ONE 01/16 1015 DC 01/16 IV 01/16 1016 1038 Ondansetron HCl 4 MG Q6P PRN 01/16 1130 AC IV Patient Medication 1 UNIT ONE NR 01/16 1315 DC Teaching ED 01/16 1330 Polyethylene Glycol 17 GM AT BEDTIME 01/16 2200 AC 01/16 PO 2145 Senna/Docusate Sodium 2 TAB AT BEDTIME 01/16 2200 AC 01/16 PO 2144 Sodium Chloride 1,000 ML BOLUS ONE 01/16 1015 DC 01/16 IV 01/16 1114 1038 Verapamil HCl 120 MG DAILY 01/17 1000 AC PO Laboratory Tests 01/17 01/16 01/16 01/16 0633 2114 1130 1032 Chemistry Sodium (137 - 145 mmol/L) 144 141 Potassium (3.5 - 5.1 mmol/L) 3.9 3.8 Chloride (98 - 107 mmol/L) 104 103 Carbon Dioxide (22 - 30 mmol/L) 22 23 Anion Gap (5 - 16) 17 H 16 BUN (9 - 20 mg/dL) 31 H 35 H Creatinine (0.7 - 1.2 mg/dL) 1.3 H 1.4 H Estimated GFR (>60 ml/min) 54 L 50 L BUN/Creatinine Ratio (7 - 25 %) 23.8 25.0 Lactic Acid (0.7 - 2.1 mmol/L) 1.8 Hematology CBC w Diff Pending NO MAN DIFF REQ WBC (4.8 - 10.8 /CUMM) Pending 10.4 RBC (4.70 - 6.10 /CUMM) Pending 4.34 L Hgb (14.0 - 18.0 G/DL) Pending 8.8 L Hct (42 - 52 %) Pending 28.8 L MCV (80.0 - 94.0 FL) Pending 66.2 L MCH (27.0 - 31.0 PG) Pending 20.4 L RDW (11.5 - 14.5 %) Pending 29.8 H Plt Count (130 - 400 /CUMM) Pending 185 MPV (7.4 - 10.4 FL) Pending 8.3 Gran % (42.2 - 75.2 %) Pending 72.2 Lymphocytes % (20.5 - 51.1 %) Pending 14.5 L Monocytes % (1.7 - 9.3 %) Pending 11.0 H Eosinophils % (0 - 5 %) Pending 1.6 Basophils % (0.0 - 2.0 %) Pending 0.7 Absolute Granulocytes (1.4 - 6.5 /CUMM) Pending 7.5 H Absolute Lymphocytes (1.2 - 3.4 /CUMM) Pending 1.5 Absolute Monocytes (0.10 - 0.60 /CUMM) Pending 1.2 H Absolute Eosinophils (0.0 - 0.7 /CUMM) Pending 0.2 Absolute Basophils (0.0 - 0.2 /CUMM) Pending 0.1 PUBS MCHC (33.0 - 37.0 G/DL) Pending 30.8 L Miscellaneous Ref Lab Test Result Pending Urines Ur Random Creatinine (mg/dL) 38.3 Ur Random Sodium (30 - 90 mmol/L) 77 Ur Random Potassium (mmol/L) 29.9 Fraction Sodium Excret (<1% %) 2.3 H 01/16 01/16 1030 1005 Coagulation PT (9.4 - 12.5 SEC) 21.3 H INR (0.90 - 1.17) 2.04 H APTT (25 - 37 SEC) 38 H Urines Urine Color (YEL,AMB,STR) YEL Urine Clarity (CLEAR) CLEAR Urine pH (5.0 - 8.0) 6.0 Ur Specific [place] (1.001 - 1.035) 1.010 Urine Protein (NEG,<30 MG/DL) NEG Urine Ketones (NEG) NEG Urine Nitrite (NEG) NEG Urine Bilirubin (NEG) NEG Urine Urobilinogen (0.1 - 1.0 EU/dl) 0.2 Ur Leukocyte Esterase (NEG) NEG Ur Microscopic EXAM NOT REQUIRED Urine Hemoglobin (NEG) NEG Urine Glucose (N MG/DL) NEG Vital Signs Date Time Temp Pulse Resp B/P B/P Pulse O2 O2 Flow FiO2 Mean Ox Delivery Rate 01/17 0800 97 Room Air Room Air 01/17 0649 98.9 102 20 144/80 99 01/17 0000 97 Nasal 2.0L Cannula 01/16 2244 97.9 82 20 128/80 95 Room Air 01/16 2000 99.0 79 20 128/80 97 Room Air 01/16 1434 98.8 76 132/70 98 Room Air 01/16 1412 20 01/16 1412 98 Room Air Room Air 01/16 1310 97.4 73 18 124/57 99 Room Air 01/16 1217 98.2 80 20 115/78 95 Room Air 01/16 1202 97.9 81 20 124/65 98 Room Air 01/16 1120 97.3 78 20 123/57 98 Room Air
[2017-01-17 09:42] LABS: GRANULOCYTE % 83.7 % (42.2-75.2)
[2017-01-17 14:47] VITALS: BP 150/80
--- NOTE | 2017-01-17 18:30 | RADIOLOGY REPORT ---
EXAMINATION: XR ABDOMEN MULTIPLE VIEWS CLINICAL INDICATION: Abdominal obstruction/obstipation. Abdominal distention and pain COMPARISON: CT scan abdomen pelvis 01/16/2017 TECHNIQUE: Supine upright abdomen FINDINGS: Gas is seen throughout the large and small bowel loops to the pelvis without transition point. The amount of bowel gas is is increased mildly since prior CAT scan. Bowel pattern most suggestive of an ileus. There is no air-fluid levels on the upright view. Moderate volume of stool in colon. IMPRESSION: Gas throughout the large and small bowel loops. The amount of bowel gas has increased since CAT scan of 01/16/2017. Bowel pattern suggestive of ileus.
--- NOTE | 2017-01-17 21:28 | Cons- Gastroenterology ---
General Information and HPI Consulting Request Date of Consult: 01/17/17 (MD [facility]MER/GASTROENTEROLOGY) Requested By: LYNN HAMMONDS MD Reason for Consult: Abdominal pain Source of Information: patient, old records Exam Limitations: poor historian, language barrier History of Present Illness: 76-year-old male with atrial fibrillation, very recent ventricular tachycardia status post placement of ICD (details of hospitalization at [facility] unavailable), diabetes mellitus, hypertension, COPD, sleep apnea. Per records, he had a colonoscopy in 2009 by colorectal surgery, with resection of 2 non- neoplastic polyps. Several days ago he began to develop abdominal pain, distention, bloating, and inability to pass a bowel movement (unclear whether he has passed flatus). He denies nausea and vomiting, fever, blood per rectum. Per record, through an inspector returned materials, he had epigastric and back pain on admission ; the patient claims more diffuse abdominal pain to me. There is no record of previous such events, and indeed the patient denies antecedent chronic or recurrent pain, dyspepsia, constipation (limited by language barrier, however). The patient is currently on apixaban, verapamil, and narcotics. Allergies/Medications Allergies: Coded Allergies: NO KNOWN ALLERGIES (02/08/16) Home Med List: Amlodipine Besylate (Norvasc) 5 MG TABLET 1 TAB PO DAILY HTN (Reported) Apixaban (Eliquis) 5 MG TABLET 1 TAB PO BID atrial fibrillation (Reported) Furosemide 40 MG TABLET 1 TAB PO DAILY WATER PILL (Reported) Glimepiride 2 MG TABLET 1 TAB PO DAILY DIABETES (Reported) Losartan Potassium (Cozaar) 50 MG TABLET 1 TAB PO DAILY HEART (Reported) Metformin HCl 1,000 MG TABLET 1 TAB PO BID DIABETES (Reported) Potassium Chloride (K-Tab ER) 20 MEQ TABLET.ER 1 TAB PO DAILY SUPPLEMENT ( Reported) Simvastatin (Zocor*) 40 MG TABLET 1 TAB PO QPM CHOLESTEROL (Reported) Sitagliptin Phos/Metformin HCl (Janumet 50-500 MG Tablet) 50 MG-500 MG TABLET 1 TAB PO BID DIABETES (Reported) Verapamil HCl (Verapamil ER) 120 MG TABLET.ER 1 TAB PO DAILY HEART (Reported) Current Medications: Current Medications Sig/Estephanie Start time Last Medication Dose Route Stop Time Status Admin Apixaban 5 MG BID 01/17 1000 AC 01/17 PO 1059 Bisacodyl 10 MG ONCE ONE 01/17 2100 DC MN 01/17 2101 Diphenhydramine HCl 25 MG Q6P PRN 01/16 1130 AC IV Docusate Sodium 100 MG BID 01/16 2200 AC 01/17 PO 0934 Hydromorphone HCl 0.5 MG Q3P PRN 01/16 1130 AC 01/17 IV 1513 Insulin Human Regular 0 Q6 01/16 1856 AC 01/17 SC 1509 Lactated Ringer's 1,000 ML .Q4H 01/17 1600 DC 01/17 IV 01/17 1959 1711 Lactated Ringer's 1,000 ML Q4H 01/16 1130 DC 01/17 IV 01/16 2329 0315 Ondansetron HCl 4 MG Q6P PRN 01/16 1130 AC IV Polyethylene Glycol 17 GM AT BEDTIME 01/16 2200 AC 01/16 PO 2145 Senna/Docusate Sodium 2 TAB DAILY PRN 01/17 2100 AC PO Senna/Docusate Sodium 2 TAB AT BEDTIME 01/16 2200 AC 01/16 PO 2144 Verapamil HCl 120 MG DAILY 01/17 1000 AC 01/17 PO 0936 Past History Travel History Traveled to [place] past 21 day No Medical History Blood Transfusion Hx: Yes Neurological: NONE EENT: NONE Cardiovascular: AFIB, hypertension, hyperlipidemia, LCW PACER Respiratory: asthma, COPD, obstructive sleep apnea Gastrointestinal: NONE Hepatic: NONE Renal: NONE Musculoskeletal: NONE Psychiatric: NONE Endocrine: diabetes Blood Disorders: anemia Cancer(s): NONE 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 Relation not specified for: FH: diabetes mellitus FHx: stroke Psychosocial History Where Do You Live? Home Who Do You Live With? 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 Review of Systems Review of Systems: Not obtainable because of language barrier Exam & Diagnostic Data Vital Signs and I&O Vital Signs Date Time Temp Pulse Resp B/P B/P Pulse O2 O2 Flow FiO2 Mean Ox Delivery Rate 01/17 1447 98.2 97 20 150/80 98 01/17 1200 Room Air Room Air 01/17 0936 101 164/100 01/17 0800 97 Room Air Room Air 01/17 0649 98.9 102 20 144/80 99 01/17 0000 97 Nasal 2.0L Cannula 01/16 2244 97.9 82 20 128/80 95 Room Air Intake & Output 01/17 1600 01/17 0400 01/16 1600 01/16 0400 01/15 0400 Intake Total 1120 750 Output Total 450 975 Balance 670 -225 Intake, IV 1000 750 Intake, Oral 120 0 Output, Urine 450 975 Patient 165 lb Weight Weight Reported by Patient Measurement Method Physical Exam: Well-developed, well-nourished male, uncomfortable. Alert and oriented. Skin normal without lesion, rash, jaundice, stigmata chronic liver disease; normal turgor. No adenopathy. No scleral icterus, thyromegaly, JVD. Head and neck otherwise unrevealing. With irregular rhythm. Lungs clear. Abdomen is distended with tympany, with bowel sounds; there is diffuse mild tenderness, no apparent mass or organomegaly. Extremities without clubbing, cyanosis or edema. Pulses 1+ bilaterally. Results Pertinent Lab Results: Laboratory Tests 01/17 01/16 0633 2114 Chemistry Sodium (137 - 145 mmol/L) 144 141 Potassium (3.5 - 5.1 mmol/L) 3.9 3.8 Chloride (98 - 107 mmol/L) 104 103 Carbon Dioxide (22 - 30 mmol/L) 22 23 Anion Gap (5 - 16) 17 H 16 BUN (9 - 20 mg/dL) 31 H 35 H Creatinine (0.7 - 1.2 mg/dL) 1.3 H 1.4 H Estimated GFR (>60 ml/min) 54 L 50 L BUN/Creatinine Ratio (7 - 25 %) 23.8 25.0 Hematology CBC w Diff NO MAN DIFF REQ NO MAN DIFF REQ WBC (4.8 - 10.8 /CUMM) 12.7 H 10.4 RBC (4.70 - 6.10 /CUMM) 4.58 L 4.34 L Hgb (14.0 - 18.0 G/DL) 9.2 L 8.8 L Hct (42 - 52 %) 30.4 L 28.8 L MCV (80.0 - 94.0 FL) 66.4 L 66.2 L MCH (27.0 - 31.0 PG) 20.2 L 20.4 L RDW (11.5 - 14.5 %) 29.4 H 29.8 H Plt Count (130 - 400 /CUMM) 197 185 MPV (7.4 - 10.4 FL) 8.5 8.3 Gran % (42.2 - 75.2 %) 83.7 H 72.2 Lymphocytes % (20.5 - 51.1 %) 4.9 L 14.5 L Monocytes % (1.7 - 9.3 %) 10.5 H 11.0 H Eosinophils % (0 - 5 %) 0.8 1.6 Basophils % (0.0 - 2.0 %) 0.1 0.7 Absolute Granulocytes (1.4 - 6.5 /CUMM) 10.6 H 7.5 H Absolute Lymphocytes (1.2 - 3.4 /CUMM) 0.6 L 1.5 Absolute Monocytes (0.10 - 0.60 /CUMM) 1.3 H 1.2 H Absolute Eosinophils (0.0 - 0.7 /CUMM) 0.1 0.2 Absolute Basophils (0.0 - 0.2 /CUMM) 0 0.1 PUBS MCHC (33.0 - 37.0 G/DL) 30.4 L 30.8 L 01/16 01/16 01/16 1130 1032 1030 Chemistry Lactic Acid (0.7 - 2.1 mmol/L) 1.8 Miscellaneous Ref Lab Test Result Pending Urines Urine Color (YEL,AMB,STR) YEL Urine Clarity (CLEAR) CLEAR Urine pH (5.0 - 8.0) 6.0 Ur Specific [place] (1.001 - 1.035) 1.010 Urine Protein (NEG,<30 MG/DL) NEG Urine Ketones (NEG) NEG Urine Nitrite (NEG) NEG Urine Bilirubin (NEG) NEG Urine Urobilinogen (0.1 - 1.0 EU/dl) 0.2 Ur Leukocyte Esterase (NEG) NEG Ur Microscopic EXAM NOT REQUIRED Urine Hemoglobin (NEG) NEG Ur Random Creatinine (mg/dL) 38.3 Ur Random Sodium (30 - 90 mmol/L) 77 Ur Random Potassium (mmol/L) 29.9 Fraction Sodium Excret (<1% %) 2.3 H Urine Glucose (N MG/DL) NEG 01/16 01/16 01/16 1005 0905 0905 Chemistry Sodium (137 - 145 mmol/L) 141 Potassium (3.5 - 5.1 mmol/L) 3.7 Chloride (98 - 107 mmol/L) 102 Carbon Dioxide (22 - 30 mmol/L) 25 Anion Gap (5 - 16) 15 BUN (9 - 20 mg/dL) 40 H Creatinine (0.7 - 1.2 mg/dL) 1.6 H Estimated GFR (>60 ml/min) 42 L BUN/Creatinine Ratio (7 - 25 %) 25.0 Glucose (65 - 99 mg/dL) 151 H Lactic Acid (0.7 - 2.1 mmol/L) 2.0 Calcium (8.4 - 10.2 mg/dL) 8.9 Iron (49 - 181 ug/dL) 14 L TIBC (261 - 462 ug/dL) 391 Ferritin (17.9 - 464 ng/mL) 7.6 L Total Bilirubin (0.2 - 1.3 mg/dL) 0.7 AST (17 - 59 U/L) 24 ALT (21 - 72 U/L) 21 Alkaline Phosphatase (< 127 U/L) 61 Troponin I (<0.11 ng/ml) < 0.01 Tpp-F-Cmpspornhec Pept (<125 pg/mL) 2900 H Total Protein (6.3 - 8.2 g/dL) 7.2 Albumin (3.5 - 5.0 g/dL) 3.9 Globulin (1.9 - 4.2 gm/dL) 3.3 Albumin/Globulin Ratio (1.1 - 2.2 %) 1.2 Amylase (30 - 110 U/L) 216 H Lipase (23 - 300 U/L) 2088 H Vitamin B12 (239 - 931 pg/mL) 318 Folate (2.76 - 20.0 ng/mL) > 20.0 H Coagulation PT (9.4 - 12.5 SEC) 21.3 H INR (0.90 - 1.17) 2.04 H APTT (25 - 37 SEC) 38 H Hematology CBC w Diff MAN DIFF ORDERED WBC (4.8 - 10.8 /CUMM) 11.0 H RBC (4.70 - 6.10 /CUMM) 3.88 L Hgb (14.0 - 18.0 G/DL) 7.0 *L Hct (42 - 52 %) 23.4 L MCV (80.0 - 94.0 FL) 60.3 L MCH (27.0 - 31.0 PG) 17.9 L RDW (11.5 - 14.5 %) 24.2 H Plt Count (130 - 400 /CUMM) 212 MPV (7.4 - 10.4 FL) 8.1 Gran % (42.2 - 75.2 %) 77.1 H Lymphocytes % (20.5 - 51.1 %) 12.1 L Monocytes % (1.7 - 9.3 %) 9.1 Eosinophils % (0 - 5 %) 1.6 Basophils % (0.0 - 2.0 %) 0.1 Absolute Granulocytes (1.4 - 6.5 /CUMM) 8.5 H Absolute Lymphocytes (1.2 - 3.4 /CUMM) 1.3 Absolute Monocytes (0.10 - 0.60 /CUMM) 1.0 H Absolute Eosinophils (0.0 - 0.7 /CUMM) 0.2 Absolute Basophils (0.0 - 0.2 /CUMM) 0 Platelet Estimate (ADEQUATE) VERIFIED BY SMEAR Polychromasia 1+ Hypochromic-Microcytic 3+ Poikilocytosis 2+ Anisocytosis 1+ Microcytic Cells 2+ Ovalocytes 1+ Elliptocytes 1+ Schistocytes PUBS MCHC (33.0 - 37.0 G/DL) 29.7 L Retic Count (0.5 - 2.0 %) 2.24 H 01/16 0826 Hematology Haptoglobin Pending Imaging/Other Studies: CT scan: Stool in rectum and sigmoid, possible stricture of sigmoid (reviewed with Dr. Kidd), segmental colonic and small bowel dilatation. There is no evidence of pancreatitis, intra-abdominal fluid, mesenteric stranding. Ultrasound without cholelithiasis or biliary dilatation. No peripancreatic fluid. Assessment/Plan Assessment/Recommendations: Acute abdominal pain and distention over several days, with small bowel and colonic dilatation on imaging, possible sigmoid stricture (although this is not very reliable on this CT imaging), stool in rectum and rectosigmoid. There is also an iron deficiency anemia, and leukocytosis. There is no clinical or radiographic evidence of pancreatitis; perhaps the increased pancreatic enzymes were in the setting of decreased GFR/clearance. Differential diagnosis includes one or more of: obstipation/decreased motility ( the patient was recently started on verapamil); large bowel obstruction secondary to sigmoid lesion (associated with iron deficiency anemia); ileus. Recommendations: * Abdominal x-ray tonight * Gentle tap water enemas * Follow-up electrolytes, magnesium, calcium, phosphorus in the morning * Limit narcotics * Obtain records from [facility] as to any predisposing factors to ileus * Discuss risks/benefits of verapamil with cardiology * Consideration for water soluble contrast enema study (rule out obstructing lesion, assist with obstipation) Copies To: CASSIUS BLOOM,LYNN Hankins Consult Acknowledgment - Thank you for your consult request.
[2017-01-17 22:42] VITALS: BP 146/74
[2017-01-18 05:56] VITALS: BP 140/86
--- NOTE | 2017-01-18 07:05 | PN- Housestaff ---
Subjective Follow-up For: Ileus Possible Pancreatitis Anema Acute Kidney Injury Subjective: Patient seen and examined. He is seen sitting upright in bed resting comfortably. He appears to be in no acute distress. He reports that he abdominal pain is much improved today after he has had several bowel movments and is requesting to have breakfast. Specific review of systems complaints are difficult to obtain. No overnight events reported. Review of Systems Constitutional: Reports: see HPI. Objective Last 24 Hrs of Vital Signs/I&O Vital Signs Date Time Temp Pulse Resp B/P B/P Pulse O2 O2 Flow FiO2 Mean Ox Delivery Rate 01/18 0556 97.8 90 20 140/86 95 Room Air 01/17 2242 98.0 93 20 146/74 98 Room Air 01/17 1447 98.2 97 20 150/80 98 01/17 1200 Room Air Room Air Intake & Output 01/18 1600 01/18 0800 01/18 0000 Intake Total 400 1250 Output Total 1000 500 Balance -600 750 Intake, IV 400 1250 Output, Urine 1000 500 Physical Exam General Appearance: Alert, Cooperative, No Acute Distress Other Physical Findings: Generel- well developed, well nourished obese elderly faro[place] man in no acute distress HEENT- NCAT, PERRL, EOMI, anicteric sclera CVS- S1, S2 w/o m/g/r Resp- CTA bilaterally GI- soft, nontender, moderated distended, no guarding/rigidity, bowel sounds intact Neuro- Awake and alert, CN II - XII grossly intact Ext- normal pulses, no cyanosis/clubbing, 1+ nonpitting edema Current Medications: Current Medications Sig/Estephanie Start time Last Medication Dose Route Stop Time Status Admin Apixaban 5 MG BID 01/17 1000 DC 01/17 PO 2113 Bisacodyl 10 MG ONCE ONE 01/17 2100 DC 01/17 LA 01/17 210 2116 Diclofenac Sodium 1 ROXI BID 01/18 1051 AC TOP Diphenhydramine HCl 25 MG Q6P PRN 01/16 1130 AC IV Docusate Sodium 100 MG BID 01/16 2200 AC 01/17 PO 2113 Hydromorphone HCl 0.5 MG Q3P PRN 01/16 1130 AC 01/18 IV 0601 Insulin Human Regular 6 UNITS .STK-MED ONE 01/17 1506 DC IV 01/17 1507 Insulin Human Regular 0 Q6 04/30 1856 AC 01/17 SC 1509 Lactated Ringer's 1,000 ML Q20H 01/17 2345 AC 01/17 IV 01/18 194 2351 Lactated Ringer's 1,000 ML .Q4H 01/17 1600 DC 01/17 IV 01/17 1959 1711 Ondansetron HCl 4 MG Q6P PRN 01/16 1130 AC IV Polyethylene Glycol 17 GM AT BEDTIME 01/16 2200 AC 01/17 PO 211 Senna/Docusate Sodium 2 TAB DAILY PRN 01/17 2100 AC PO Senna/Docusate Sodium 2 TAB AT BEDTIME 01/16 2200 AC 01/17 PO 211 Verapamil HCl 120 MG DAILY 01/17 1000 DC 01/17 PO 0936 Last 24 Hrs of Lab/Colby Results Last 24 Hrs of Labs/Mics: Laboratory Tests 01/18/17 0620: Anion Gap 18 H, Estimated GFR 50 L, BUN/Creatinine Ratio 25.0, Calcium 9.1, Phosphorus 3.7, Magnesium 1.6, CBC w Diff NO MAN DIFF REQ, RBC 4.46 L, MCV 66.2 L, MCH 20.3 L, RDW 29.7 H, MPV 8.5, Gran % 79.7 H, Lymphocytes % 7.7 L, Monocytes % 11.3 H, Eosinophils % 1.0, Basophils % 0.3, Absolute Granulocytes 9.8 H, Absolute Lymphocytes 0.9 L, Absolute Monocytes 1.4 H, Absolute Eosinophils 0.1, Absolute Basophils 0, PUBS MCHC 30.7 L Assessment/Plan Assessment: Patient had an abdominal X-ray last night that demonstrated the possibility of an ileus. He was given several tap water enemas and a dulcolax suppository for which he then had several bowel movements. He is started on a clear liquid diet this morning. He was seen and evaluated by cardiology whom recommended discontinuing Verapamil as this may have contributed to his constipation and to hold Eliquis in anticipation of an endoscopic procedure. An echocardiogram is to be obtained as well per cardiology recommendations. Lasix remain on hold. Ileus / Possible Pancreatitis / Abdominal Pain Patient with no known gastrointestinal history or alcohol seen for evaluation of abdominal pain. Vitals signs within normal limits in the ED. Lipase 2088, WBC 11.0. CT negative for acute abdominal pathology. US abdomin also negative. Abdominal X-ray demonstrated an ileus possibly due to Verampamil. -General Medicine -NPO -Pain control -Lactated Ringers @ 250mL/hr -Zofran 4mg IV Q6H PRN nausea -GI Consult Acute Kidney Injury / Anemia -Avoid NSAIDs and Nephrotoxic medications -Type & Screen -Maintain hemoglobin >8.0, transfuse as needed -PRBC transfused: 2 -Lasix/Losartan held -Daily CBC / BEP Atrial Fibrillation / SVT S/P AICD / Hypertension Patient of Dr. Naresh Sparks. Cardiology consult placed for evaluation of anticoagulation in the context of anemia. -Eliquis on hold for endoscopic procedure -Verapamil discontinued -Cardiology consult -Follow up echocardiogram Non-insulin Dependent Diabetes Mellitus -Accuchecks TIDAC/HS -Hold oral hypoglycemics -Novolog SSI -Diabetic diet Obstructive Sleep Apnea-Nocturnal CPAP Hyperlipidemia-pravastatin held while NPO Pain Plan-Dilaudid Bowel Regimen-Senna/Colace/Miralax Diet-Diabetic Diet DVT PPx-ALPS Code Status- FULL CODE Problem List: 1. Ileus Pain Ratin Pain Location: None Pain Goal: Pain 7 or less Pain Plan: See assessment Tomorrow's Labs & Rationales: CBC-anemia BEP-theodora
[2017-01-18 08:04] LABS: ABSOLUTE BASOPHIL COUNT 0 /CUMM (0.0-0.2); ABSOLUTE EOSINOPHIL COUNT 0.1 /CUMM (0.0-0.7); ABSOLUTE GRANULOCYTE CT 9.8 /CUMM (1.4-6.5); ABSOLUTE LYMPH COUNT 0.9 /CUMM (1.2-3.4); ABSOLUTE MONOCYTE COUNT 1.4 /CUMM (0.10-0.60); BASOPHIL % 0.3 % (0.0-2.0); GRANULOCYTE % 79.7 % (42.2-75.2); HEMATOCRIT 29.5 % (42-52); MEAN CORPUSCULAR HGB 20.3 PG (27.0-31.0); MEAN CORPUSCULAR HGB CONC 30.7 G/DL (33.0-37.0); MEAN CORPUSCULAR VOLUME 66.2 FL (80.0-94.0); MEAN PLATELET VOLUME 8.5 FL (7.4-10.4); PLATELET COUNT 186 /CUMM (130-400); RBC DISTRIBUTION WIDTH 29.7 % (11.5-14.5); RED BLOOD CELL CT 4.46 /CUMM (4.70-6.10); WHITE BLOOD CELL COUNT 12.3 /CUMM (4.8-10.8)
--- NOTE | 2017-01-18 08:19 | PN- Gastroenterology ---
Assessment/Plan Assessment/Recommendations: Acute abdominal pain and distention over several days, with small bowel and colonic dilatation on imaging, possible sigmoid stricture (although this is not very reliable on this CT imaging), stool in rectum and rectosigmoid. There is also an iron deficiency anemia, and leukocytosis. There is no clinical or radiographic evidence of pancreatitis; perhaps the increased pancreatic enzymes were in the setting of decreased GFR/clearance. Differential diagnosis includes one or more of: obstipation/decreased motility ( the patient was recently started on verapamil); large bowel obstruction secondary to sigmoid lesion (associated with iron deficiency anemia); ileus. Pain and distention have improved with enema therapy overnight. Recommendations: * Begin clear liquid diet. * Follow-up with abdominal x-ray tonight * Gentle tap water enema again today * Await CBC * Follow-up electrolytes, magnesium, calcium, phosphorus * Limit narcotics * Obtain records from [facility] as to any predisposing factors to ileus * Discuss risks/benefits of continuing verapamil with cardiology as this may have precipitated this hospitalization. * The patient will require endoscopic evaluation for deficiency anemia. This is to be cleared with cardiology given recent events. Must also decide whether or not anticoagulation can be held. Subjective Subjective: Several bowel movements after enema therapy. The patient states that the pain has resolved. No nausea. Objective Vital Signs and I&Os Vital Signs Date Time Temp Pulse Resp B/P B/P Pulse O2 O2 Flow FiO2 Mean Ox Delivery Rate 01/18 0556 97.8 90 20 140/86 95 Room Air 01/17 2242 98.0 93 20 146/74 98 Room Air 01/17 1447 98.2 97 20 150/80 98 01/17 1200 Room Air Room Air 01/17 0936 101 164/100 Intake & Output 01/18 1600 01/18 0400 01/17 1600 01/17 0400 01/16 1600 01/16 0400 Intake Total 400 1250 1120 750 Output Total 1000 500 450 975 Balance -600 750 670 -225 Intake, IV 400 1250 1000 750 Intake, Oral 120 0 Output, Urine 1000 500 450 975 Patient 165 lb Weight Weight Reported by Patient Measurement Method Physical Exam: Abdomen is less distended, soft, nontender. Current Medications: Current Medications Sig/Estephanie Start time Last Medication Dose Route Stop Time Status Admin Apixaban 5 MG BID 01/17 1000 AC 01/17 PO 2112 Bisacodyl 10 MG ONCE ONE 01/17 2100 DC 01/17 AK 01/17 2101 211 Diphenhydramine HCl 25 MG Q6P PRN 01/16 1130 AC IV Docusate Sodium 100 MG BID 01/16 2200 AC 01/17 PO 211 Hydromorphone HCl 0.5 MG Q3P PRN 01/16 1130 AC 01/18 IV 0601 Insulin Human Regular 6 UNITS .STK-MED ONE 01/17 1506 DC IV 01/17 1507 Insulin Human Regular 0 Q6 01/16 1856 AC 01/17 SC 1509 Lactated Ringer's 1,000 ML Q20H 01/17 2345 AC 01/17 IV 01/18 194 2351 Lactated Ringer's 1,000 ML .Q4H 01/17 1600 DC 01/17 IV 01/17 195 1711 Ondansetron HCl 4 MG Q6P PRN 01/16 1130 AC IV Polyethylene Glycol 17 GM AT BEDTIME 01/16 2200 AC 01/17 PO 211 Senna/Docusate Sodium 2 TAB DAILY PRN 01/17 2100 AC PO Senna/Docusate Sodium 2 TAB AT BEDTIME 01/16 220 AC 01/17 PO 211 Verapamil HCl 120 MG DAILY 01/17 1000 AC 01/17 PO 0936 Results Pertinent Lab Results: Laboratory Tests 01/18 01/17 0620 0633 Chemistry Sodium (137 - 145 mmol/L) 143 144 Potassium (3.5 - 5.1 mmol/L) 4.0 3.9 Chloride (98 - 107 mmol/L) 101 104 Carbon Dioxide (22 - 30 mmol/L) 24 22 Anion Gap (5 - 16) 18 H 17 H BUN (9 - 20 mg/dL) 35 H 31 H Creatinine (0.7 - 1.2 mg/dL) 1.4 H 1.3 H Estimated GFR (>60 ml/min) 50 L 54 L BUN/Creatinine Ratio (7 - 25 %) 25.0 23.8 Calcium (8.4 - 10.2 mg/dL) 9.1 Phosphorus (2.5 - 4.5 mg/dL) 3.7 Magnesium (1.6 - 2.3 mg/dL) 1.6 Hematology CBC w Diff Pending NO MAN DIFF REQ WBC (4.8 - 10.8 /CUMM) Pending 12.7 H RBC (4.70 - 6.10 /CUMM) Pending 4.58 L Hgb (14.0 - 18.0 G/DL) Pending 9.2 L Hct (42 - 52 %) Pending 30.4 L MCV (80.0 - 94.0 FL) Pending 66.4 L MCH (27.0 - 31.0 PG) Pending 20.2 L RDW (11.5 - 14.5 %) Pending 29.4 H Plt Count (130 - 400 /CUMM) Pending 197 MPV (7.4 - 10.4 FL) Pending 8.5 Gran % (42.2 - 75.2 %) 83.7 H Lymphocytes % (20.5 - 51.1 %) 4.9 L Monocytes % (1.7 - 9.3 %) 10.5 H Eosinophils % (0 - 5 %) 0.8 Basophils % (0.0 - 2.0 %) 0.1 Absolute Granulocytes (1.4 - 6.5 /CUMM) 10.6 H Absolute Lymphocytes (1.2 - 3.4 /CUMM) 0.6 L Absolute Monocytes (0.10 - 0.60 /CUMM) 1.3 H Absolute Eosinophils (0.0 - 0.7 /CUMM) 0.1 Absolute Basophils (0.0 - 0.2 /CUMM) 0 PUBS MCHC (33.0 - 37.0 G/DL) Pending 30.4 L 01/16 01/16 01/16 2114 1130 1032 Chemistry Sodium (137 - 145 mmol/L) 141 Potassium (3.5 - 5.1 mmol/L) 3.8 Chloride (98 - 107 mmol/L) 103 Carbon Dioxide (22 - 30 mmol/L) 23 Anion Gap (5 - 16) 16 BUN (9 - 20 mg/dL) 35 H Creatinine (0.7 - 1.2 mg/dL) 1.4 H Estimated GFR (>60 ml/min) 50 L BUN/Creatinine Ratio (7 - 25 %) 25.0 Lactic Acid (0.7 - 2.1 mmol/L) 1.8 Hematology CBC w Diff NO MAN DIFF REQ WBC (4.8 - 10.8 /CUMM) 10.4 RBC (4.70 - 6.10 /CUMM) 4.34 L Hgb (14.0 - 18.0 G/DL) 8.8 L Hct (42 - 52 %) 28.8 L MCV (80.0 - 94.0 FL) 66.2 L MCH (27.0 - 31.0 PG) 20.4 L RDW (11.5 - 14.5 %) 29.8 H Plt Count (130 - 400 /CUMM) 185 MPV (7.4 - 10.4 FL) 8.3 Gran % (42.2 - 75.2 %) 72.2 Lymphocytes % (20.5 - 51.1 %) 14.5 L Monocytes % (1.7 - 9.3 %) 11.0 H Eosinophils % (0 - 5 %) 1.6 Basophils % (0.0 - 2.0 %) 0.7 Absolute Granulocytes (1.4 - 6.5 /CUMM) 7.5 H Absolute Lymphocytes (1.2 - 3.4 /CUMM) 1.5 Absolute Monocytes (0.10 - 0.60 /CUMM) 1.2 H Absolute Eosinophils (0.0 - 0.7 /CUMM) 0.2 Absolute Basophils (0.0 - 0.2 /CUMM) 0.1 PUBS MCHC (33.0 - 37.0 G/DL) 30.8 L Miscellaneous Ref Lab Test Result Pending Urines Ur Random Creatinine (mg/dL) 38.3 Ur Random Sodium (30 - 90 mmol/L) 77 Ur Random Potassium (mmol/L) 29.9 Fraction Sodium Excret (<1% %) 2.3 H 01/16 01/16 01/16 1030 1005 0905 Chemistry Lactic Acid (0.7 - 2.1 mmol/L) 2.0 Coagulation PT (9.4 - 12.5 SEC) 21.3 H INR (0.90 - 1.17) 2.04 H APTT (25 - 37 SEC) 38 H Urines Urine Color (YEL,AMB,STR) YEL Urine Clarity (CLEAR) CLEAR Urine pH (5.0 - 8.0) 6.0 Ur Specific [place] (1.001 - 1.035) 1.010 Urine Protein (NEG,<30 MG/DL) NEG Urine Ketones (NEG) NEG Urine Nitrite (NEG) NEG Urine Bilirubin (NEG) NEG Urine Urobilinogen (0.1 - 1.0 EU/dl) 0.2 Ur Leukocyte Esterase (NEG) NEG Ur Microscopic EXAM NOT REQUIRED Urine Hemoglobin (NEG) NEG Urine Glucose (N MG/DL) NEG 01/16 01/16 0905 0826 Chemistry Sodium (137 - 145 mmol/L) 141 Potassium (3.5 - 5.1 mmol/L) 3.7 Chloride (98 - 107 mmol/L) 102 Carbon Dioxide (22 - 30 mmol/L) 25 Anion Gap (5 - 16) 15 BUN (9 - 20 mg/dL) 40 H Creatinine (0.7 - 1.2 mg/dL) 1.6 H Estimated GFR (>60 ml/min) 42 L BUN/Creatinine Ratio (7 - 25 %) 25.0 Glucose (65 - 99 mg/dL) 151 H Calcium (8.4 - 10.2 mg/dL) 8.9 Iron (49 - 181 ug/dL) 14 L TIBC (261 - 462 ug/dL) 391 Ferritin (17.9 - 464 ng/mL) 7.6 L Total Bilirubin (0.2 - 1.3 mg/dL) 0.7 AST (17 - 59 U/L) 24 ALT (21 - 72 U/L) 21 Alkaline Phosphatase (< 127 U/L) 61 Troponin I (<0.11 ng/ml) < 0.01 [id number] Pept (<125 pg/mL) 2900 H Total Protein (6.3 - 8.2 g/dL) 7.2 Albumin (3.5 - 5.0 g/dL) 3.9 Globulin (1.9 - 4.2 gm/dL) 3.3 Albumin/Globulin Ratio (1.1 - 2.2 %) 1.2 Amylase (30 - 110 U/L) 216 H Lipase (23 - 300 U/L) 2088 H Vitamin B12 (239 - 931 pg/mL) 318 Folate (2.76 - 20.0 ng/mL) > 20.0 H Hematology CBC w Diff MAN DIFF ORDERED WBC (4.8 - 10.8 /CUMM) 11.0 H RBC (4.70 - 6.10 /CUMM) 3.88 L Hgb (14.0 - 18.0 G/DL) 7.0 *L Hct (42 - 52 %) 23.4 L MCV (80.0 - 94.0 FL) 60.3 L MCH (27.0 - 31.0 PG) 17.9 L RDW (11.5 - 14.5 %) 24.2 H Plt Count (130 - 400 /CUMM) 212 MPV (7.4 - 10.4 FL) 8.1 Gran % (42.2 - 75.2 %) 77.1 H Lymphocytes % (20.5 - 51.1 %) 12.1 L Monocytes % (1.7 - 9.3 %) 9.1 Eosinophils % (0 - 5 %) 1.6 Basophils % (0.0 - 2.0 %) 0.1 Absolute Granulocytes (1.4 - 6.5 /CUMM) 8.5 H Absolute Lymphocytes (1.2 - 3.4 /CUMM) 1.3 Absolute Monocytes (0.10 - 0.60 /CUMM) 1.0 H Absolute Eosinophils (0.0 - 0.7 /CUMM) 0.2 Absolute Basophils (0.0 - 0.2 /CUMM) 0 Platelet Estimate (ADEQUATE) VERIFIED BY SMEAR Polychromasia 1+ Hypochromic-Microcytic 3+ Poikilocytosis 2+ Anisocytosis 1+ Microcytic Cells 2+ Ovalocytes 1+ Elliptocytes 1+ Schistocytes PUBS MCHC (33.0 - 37.0 G/DL) 29.7 L Retic Count (0.5 - 2.0 %) 2.24 H Haptoglobin Pending
--- NOTE | 2017-01-18 09:41 | PN- Att Addend ---
Attending Addendum Attending Brief Note Patient complains of minimal abdominal pain General Appearance: Alert, No Acute Distress Skin: Grossly normal HEENT: PEERLA Neck: Supple, No JVD Cardiovascular: Regular Rate, Normal S1, Normal S2, No Murmurs Lungs: Clear to Auscultation, Normal Air Movement Abdomen: Distended abdomen, decreased bowel sounds Neurological: Normal Speech, Strength at 5/5 X4 Ext, Cranial Nerves 3-12 NL, Reflexes 2+ Extremities: No Clubbing, No Cyanosis, No Edema Vascular: Normal Pulses Assessment Patient is having persistent abdominal pain although improved. No signs of gallstone pancreatitis. No clear etiology. We'll continue IV hydration, hold Lasix and get a GI evaluation. Status post 2 unit PRBC. Anemia likely the setting of epistaxis that was ongoing until recently when he was switched to ELIQUIS. GI suspect ileus likely secondary to a distal stricture which is not confirmatory on the CAT scan. We will advance his diet and observe for symptoms change. Plan Start clear liquid diet Hold Lasix Continue Eliquis voltaren gel bilateral knees twice a day Continue other medications Current Medications Sig/Estephanie Start time Last Medication Dose Route Stop Time Status Admin Apixaban 5 MG BID 01/17 1000 AC 01/17 PO 2113 Bisacodyl 10 MG ONCE ONE 01/17 2100 DC 01/17 TX 01/17 210 2116 Diphenhydramine HCl 25 MG Q6P PRN 01/16 1130 AC IV Docusate Sodium 100 MG BID 01/16 2200 AC 01/17 PO 2113 Hydromorphone HCl 0.5 MG Q3P PRN 01/16 1130 AC 01/18 IV 0601 Insulin Human Regular 6 UNITS .STK-MED ONE 01/17 1506 DC IV 01/17 1507 Insulin Human Regular 0 Q6 01/16 1856 AC 01/17 SC 1509 Lactated Ringer's 1,000 ML Q20H 01/17 2345 AC 01/17 IV 01/18 1944 2351 Lactated Ringer's 1,000 ML .Q4H 01/17 1600 DC 01/17 IV 01/17 1959 1711 Ondansetron HCl 4 MG Q6P PRN 01/16 1130 AC IV Polyethylene Glycol 17 GM AT BEDTIME 01/16 2200 AC 01/17 PO 2119 Senna/Docusate Sodium 2 TAB DAILY PRN 01/17 2100 AC PO Senna/Docusate Sodium 2 TAB AT BEDTIME 01/16 2200 AC 01/17 PO 2113 Verapamil HCl 120 MG DAILY 01/17 1000 AC 01/17 PO 0936 Laboratory Tests 01/18 06 Chemistry Sodium (137 - 145 mmol/L) 143 Potassium (3.5 - 5.1 mmol/L) 4.0 Chloride (98 - 107 mmol/L) 101 Carbon Dioxide (22 - 30 mmol/L) 24 Anion Gap (5 - 16) 18 H BUN (9 - 20 mg/dL) 35 H Creatinine (0.7 - 1.2 mg/dL) 1.4 H Estimated GFR (>60 ml/min) 50 L BUN/Creatinine Ratio (7 - 25 %) 25.0 Calcium (8.4 - 10.2 mg/dL) 9.1 Phosphorus (2.5 - 4.5 mg/dL) 3.7 Magnesium (1.6 - 2.3 mg/dL) 1.6 Hematology CBC w Diff NO MAN DIFF REQ WBC (4.8 - 10.8 /CUMM) 12.3 H RBC (4.70 - 6.10 /CUMM) 4.46 L Hgb (14.0 - 18.0 G/DL) 9.1 L Hct (42 - 52 %) 29.5 L MCV (80.0 - 94.0 FL) 66.2 L MCH (27.0 - 31.0 PG) 20.3 L RDW (11.5 - 14.5 %) 29.7 H Plt Count (130 - 400 /CUMM) 186 MPV (7.4 - 10.4 FL) 8.5 Gran % (42.2 - 75.2 %) 79.7 H Lymphocytes % (20.5 - 51.1 %) 7.7 L Monocytes % (1.7 - 9.3 %) 11.3 H Eosinophils % (0 - 5 %) 1.0 Basophils % (0.0 - 2.0 %) 0.3 Absolute Granulocytes (1.4 - 6.5 /CUMM) 9.8 H Absolute Lymphocytes (1.2 - 3.4 /CUMM) 0.9 L Absolute Monocytes (0.10 - 0.60 /CUMM) 1.4 H Absolute Eosinophils (0.0 - 0.7 /CUMM) 0.1 Absolute Basophils (0.0 - 0.2 /CUMM) 0 PUBS MCHC (33.0 - 37.0 G/DL) 30.7 L Vital Signs Date Time Temp Pulse Resp B/P B/P Pulse O2 O2 Flow FiO2 Mean Ox Delivery Rate 01/18 0556 97.8 90 20 140/86 95 Room Air 01/17 2242 98.0 93 20 146/74 98 Room Air 01/17 1447 98.2 97 20 150/80 98 01/17 1200 Room Air Room Air
--- NOTE | 2017-01-18 10:06 | Cons- Cardiology ---
General Information and HPI Consulting Request Date of Consult: 01/18/17 Requested By: LYNN HAMMONDS MD Reason for Consult: Atrial fibrillation ventricular tachycardia by history Source of Information: patient, old records Exam Limitations: poor historian History of Present Illness: The patient is a 76-year-old male with a history of hypertension, mild aortic stenosis, persistent atrial fibrillation on Eliquis, coronary artery disease with an 80% diagonal lesion by catheterization December 2014 otherwise nonflow limiting coronary disease managed medically, ejection fraction that time was 80% . Catheterization was performed due to an episode of ventricular tachycardia requiring defibrillation upon presentation to [facility]. A [employer] AICD was implanted by Dr. Hernandez. The device is currently under advisory due to undetermined battery life. Plan is to obtain an echocardiogram which has not been performed to reassess his LV function to determine whether he would require simply degenerated changes versus the by the ICD. He has a history of noncompliance with outpatient follow-up. The patient now presents with abdominal pain, back pain and is diagnosed with possible ileus. Plan is to obtain an endoscopy and colonoscopy. Of note is that the fact that the patient has had episodes of epistaxis in the past. At that time his Xarelto was changed to Eliquis. For the cardiac standpoint the patient denies chest pain shortness of breath PND or orthopnea or palpitations. Allergies/Medications Allergies: Coded Allergies: NO KNOWN ALLERGIES (02/08/16) Home Med List: Amlodipine Besylate (Norvasc) 5 MG TABLET 1 TAB PO DAILY HTN (Reported) Apixaban (Eliquis) 5 MG TABLET 1 TAB PO BID atrial fibrillation (Reported) Furosemide 40 MG TABLET 1 TAB PO DAILY WATER PILL (Reported) Glimepiride 2 MG TABLET 1 TAB PO DAILY DIABETES (Reported) Losartan Potassium (Cozaar) 50 MG TABLET 1 TAB PO DAILY HEART (Reported) Metformin HCl 1,000 MG TABLET 1 TAB PO BID DIABETES (Reported) Potassium Chloride (K-Tab ER) 20 MEQ TABLET.ER 1 TAB PO DAILY SUPPLEMENT ( Reported) Simvastatin (Zocor*) 40 MG TABLET 1 TAB PO QPM CHOLESTEROL (Reported) Sitagliptin Phos/Metformin HCl (Janumet 50-500 MG Tablet) 50 MG-500 MG TABLET 1 TAB PO BID DIABETES (Reported) Verapamil HCl (Verapamil ER) 120 MG TABLET.ER 1 TAB PO DAILY HEART (Reported) Current Medications: Current Medications Sig/Estephanie Start time Last Medication Dose Route Stop Time Status Admin Apixaban 5 MG BID 01/17 1000 AC 01/17 PO 2112 Bisacodyl 10 MG ONCE ONE 01/17 2100 DC 01/17 CA 01/17 210 211 Diphenhydramine HCl 25 MG Q6P PRN 01/16 1130 AC IV Docusate Sodium 100 MG BID 01/16 2200 AC 01/17 PO 211 Hydromorphone HCl 0.5 MG Q3P PRN 01/16 1130 AC 01/18 IV 0601 Insulin Human Regular 6 UNITS .STK-MED ONE 01/17 1506 DC IV 01/17 1507 Insulin Human Regular 0 Q6 01/16 1856 AC 01/17 SC 1509 Lactated Ringer's 1,000 ML Q20H 01/17 2345 AC 01/17 IV 01/18 1944 2351 Lactated Ringer's 1,000 ML .Q4H 01/17 1600 DC 01/17 IV 01/17 1959 1711 Ondansetron HCl 4 MG Q6P PRN 01/16 1130 AC IV Polyethylene Glycol 17 GM AT BEDTIME 01/16 2200 AC 01/17 PO 211 Senna/Docusate Sodium 2 TAB DAILY PRN 01/17 2100 AC PO Senna/Docusate Sodium 2 TAB AT BEDTIME 01/16 2200 AC 01/17 PO 211 Verapamil HCl 120 MG DAILY 01/17 1000 AC 01/17 PO 0936 Review of Systems Review of Systems: Eyes no blurred or double vision Ears no deafness or ringing Nose and throat no recurrent sinusitis Lungs per history of present illness Heart per history of present illness Abdomen per history of present illness Musculoskeletal occasional muscle and joint pains Psych no anxiety or depression Neuro without recurrent headache or seizures Endocrine no heat or cold intolerance Past History Travel History Traveled to [place] past 21 day No Medical History Blood Transfusion Hx: Yes Neurological: NONE EENT: NONE Cardiovascular: AFIB, hypertension, hyperlipidemia, LCW PACER Respiratory: asthma, COPD, obstructive sleep apnea Gastrointestinal: NONE Hepatic: NONE Renal: NONE Musculoskeletal: NONE Psychiatric: NONE Endocrine: diabetes Blood Disorders: anemia Cancer(s): NONE 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 Relation not specified for: FH: diabetes mellitus FHx: stroke Psychosocial History Where Do You Live? Home Who Do You Live With? 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 Exam & Diagnostic Data Vital Signs and I&O Vital Signs Date Time Temp Pulse Resp B/P B/P Pulse O2 O2 Flow FiO2 Mean Ox Delivery Rate 01/19 556 97.8 90 20 140/86 95 Room Air 01/17 2242 98.0 93 20 146/74 98 Room Air 01/17 1447 98.2 97 20 150/80 98 01/17 1200 Room Air Room Air Intake & Output 01/18 0801/18 0000 01/17 1600 01/17 0800 01/17 0000 Intake Total 400 0968 169 2897 750 Output Total 1000 500 650 775 Balance -600 750 120 350 -25 Intake, IV 400 1250 1000 750 Intake, Oral 120 0 0 Output, Urine 1000 500 650 775 Physical Exam: Patient is a well-developed well-nourished male appearing in mild abdominal distress HEENT is unremarkable Neck is supple there is no JVD Lungs are clear Heart irregular rhythm S1 and S2 are normal no gallops or rubs 1/6 systolic ejection murmur right upper sternal border Abdomen bowel sounds positive distended Extremities without edema Labs/Colby Results: Laboratory Tests 01/18 01/17 0620 0633 Chemistry Sodium (137 - 145 mmol/L) 143 144 Potassium (3.5 - 5.1 mmol/L) 4.0 3.9 Chloride (98 - 107 mmol/L) 101 104 Carbon Dioxide (22 - 30 mmol/L) 24 22 Anion Gap (5 - 16) 18 H 17 H BUN (9 - 20 mg/dL) 35 H 31 H Creatinine (0.7 - 1.2 mg/dL) 1.4 H 1.3 H Estimated GFR (>60 ml/min) 50 L 54 L BUN/Creatinine Ratio (7 - 25 %) 25.0 23.8 Calcium (8.4 - 10.2 mg/dL) 9.1 Phosphorus (2.5 - 4.5 mg/dL) 3.7 Magnesium (1.6 - 2.3 mg/dL) 1.6 Hematology CBC w Diff NO MAN DIFF REQ NO MAN DIFF REQ WBC (4.8 - 10.8 /CUMM) 12.3 H 12.7 H RBC (4.70 - 6.10 /CUMM) 4.46 L 4.58 L Hgb (14.0 - 18.0 G/DL) 9.1 L 9.2 L Hct (42 - 52 %) 29.5 L 30.4 L MCV (80.0 - 94.0 FL) 66.2 L 66.4 L MCH (27.0 - 31.0 PG) 20.3 L 20.2 L RDW (11.5 - 14.5 %) 29.7 H 29.4 H Plt Count (130 - 400 /CUMM) 186 197 MPV (7.4 - 10.4 FL) 8.5 8.5 Gran % (42.2 - 75.2 %) 79.7 H 83.7 H Lymphocytes % (20.5 - 51.1 %) 7.7 L 4.9 L Monocytes % (1.7 - 9.3 %) 11.3 H 10.5 H Eosinophils % (0 - 5 %) 1.0 0.8 Basophils % (0.0 - 2.0 %) 0.3 0.1 Absolute Granulocytes (1.4 - 6.5 /CUMM) 9.8 H 10.6 H Absolute Lymphocytes (1.2 - 3.4 /CUMM) 0.9 L 0.6 L Absolute Monocytes (0.10 - 0.60 /CUMM) 1.4 H 1.3 H Absolute Eosinophils (0.0 - 0.7 /CUMM) 0.1 0.1 Absolute Basophils (0.0 - 0.2 /CUMM) 0 0 PUBS MCHC (33.0 - 37.0 G/DL) 30.7 L 30.4 L 01/16 01/16 01/16 2114 1130 1032 Chemistry Sodium (137 - 145 mmol/L) 141 Potassium (3.5 - 5.1 mmol/L) 3.8 Chloride (98 - 107 mmol/L) 103 Carbon Dioxide (22 - 30 mmol/L) 23 Anion Gap (5 - 16) 16 BUN (9 - 20 mg/dL) 35 H Creatinine (0.7 - 1.2 mg/dL) 1.4 H Estimated GFR (>60 ml/min) 50 L BUN/Creatinine Ratio (7 - 25 %) 25.0 Lactic Acid (0.7 - 2.1 mmol/L) 1.8 Hematology CBC w Diff NO MAN DIFF REQ WBC (4.8 - 10.8 /CUMM) 10.4 RBC (4.70 - 6.10 /CUMM) 4.34 L Hgb (14.0 - 18.0 G/DL) 8.8 L Hct (42 - 52 %) 28.8 L MCV (80.0 - 94.0 FL) 66.2 L MCH (27.0 - 31.0 PG) 20.4 L RDW (11.5 - 14.5 %) 29.8 H Plt Count (130 - 400 /CUMM) 185 MPV (7.4 - 10.4 FL) 8.3 Gran % (42.2 - 75.2 %) 72.2 Lymphocytes % (20.5 - 51.1 %) 14.5 L Monocytes % (1.7 - 9.3 %) 11.0 H Eosinophils % (0 - 5 %) 1.6 Basophils % (0.0 - 2.0 %) 0.7 Absolute Granulocytes (1.4 - 6.5 /CUMM) 7.5 H Absolute Lymphocytes (1.2 - 3.4 /CUMM) 1.5 Absolute Monocytes (0.10 - 0.60 /CUMM) 1.2 H Absolute Eosinophils (0.0 - 0.7 /CUMM) 0.2 Absolute Basophils (0.0 - 0.2 /CUMM) 0.1 PUBS MCHC (33.0 - 37.0 G/DL) 30.8 L Miscellaneous Ref Lab Test Result Pending Urines Ur Random Creatinine (mg/dL) 38.3 Ur Random Sodium (30 - 90 mmol/L) 77 Ur Random Potassium (mmol/L) 29.9 Fraction Sodium Excret (<1% %) 2.3 H 01/16 1030 Urines Urine Color (YEL,AMB,STR) YEL Urine Clarity (CLEAR) CLEAR Urine pH (5.0 - 8.0) 6.0 Ur Specific [place] (1.001 - 1.035) 1.010 Urine Protein (NEG,<30 MG/DL) NEG Urine Ketones (NEG) NEG Urine Nitrite (NEG) NEG Urine Bilirubin (NEG) NEG Urine Urobilinogen (0.1 - 1.0 EU/dl) 0.2 Ur Leukocyte Esterase (NEG) NEG Ur Microscopic EXAM NOT REQUIRED Urine Hemoglobin (NEG) NEG Urine Glucose (N MG/DL) NEG Diagnostic Data EKG Results Atrial fibrillation nonspecific ST-T changes CXR Results IMPRESSION: Enlarged cardiac silhouette, unchanged. The lungs are clear with minor linear scarring in the left midlung. Other Results Abdominal x-ray IMPRESSION: Gas throughout the large and small bowel loops. The amount of bowel gas has increased since CAT scan of 01/16/2017. Bowel pattern suggestive of ileus. Assessment/Plan Assessment/Plan 1. Persistent atrial fibrillation on Eliquis 2. Ventricular tachycardia status post AICD. The device is under advisory due to questionable battery life. 3. Coronary disease by history with 80% ostial diagonal by catheterization December 2014 otherwise nonflow limiting disease managed medically. Ejection fraction at that time was 80% 4. Mild aortic stenosis by history 5. Hypertension 6. COPD 7. Dyslipidemia 8. Abdominal pain with possible ileus 9. Epistaxis by history no documented recurrence on Eliquis 10. Anemia 11. Mild renal insufficiency Recommendations 1. His medical records were reviewed in [facility] and there is no documentation of supraventricular tachycardia. It appears that verapamil was utilized for rate control. Given his constipation I would discontinue verapamil and monitor his heart rate. 2. Would hold Eliquis for upcoming colonoscopy and endoscopy. We'll readdress anticoagulation dependent upon the findings. 3. Would obtain an echocardiogram to reassess his LV function. Per Dr. Hernandez's note he will either require a generator change versus upgrade to by the ICD dependent upon LV function 4. The patient is stable from a cardiac standpoint for upcoming endoscopy and colonoscopy 5. Upon discharge we'll stress necessity for continued outpatient follow-up since he has not been seen in the office in over a year. Thank you for allowing [facility] to participate in the care of your patient. Consult Acknowledgment - Thank you for your consult request.
[2017-01-18 12:00] VITALS: BP 144/80
[2017-01-18 15:07] VITALS: BP 134/80
--- NOTE | 2017-01-18 21:22 | RADIOLOGY REPORT ---
EXAMINATION: XR ABDOMEN MULTIPLE VIEWS CLINICAL INDICATION: Ileus. Assess for interval improvement. COMPARISON: Plain films of the abdomen 01/17/2017. TECHNIQUE: 3 views of the abdomen and pelvis. FINDINGS: In comparison to the prior examination, there has been slight interval decompression of previously identified distended loops of small and large bowel throughout the abdomen and pelvis. Air-filled loops of large bowel are visualized measuring up to 6.1 cm within the left hemiabdomen; previously, approximately 8.7 cm. The bowel gas pattern is nonobstructive. There is a relative paucity of air within the rectum. No abnormal soft tissue calcifications. Partially visualized AICD with leads identified within the right atrium and right ventricle. No acute osseous abnormality. IMPRESSION: Slight interval decompression of previously identified air-filled loops of small and large bowel throughout the abdomen and pelvis. This bowel gas pattern is most suggestive of ileus. No air-fluid levels are identified.
[2017-01-18 22:16] VITALS: BP 164/90
[2017-01-19 06:45] VITALS: BP 132/70
--- NOTE | 2017-01-19 07:07 | PN- Housestaff ---
Subjective Follow-up For: Ileus Possible Pancreatitis Anema Acute Kidney Injury Subjective: Patient seen and examined. He is seen sitting upright in his chair at bedside. He appears to be in no acute distress. He reports mild improvement of his abdominal pain, but denies having had a spontaneous bowel movement without aid of an enema. Patient is requesting to go home today. Specific review of systems complaints are difficult to obtain. No overnight events reported Review of Systems Constitutional: Reports: see HPI. Objective Last 24 Hrs of Vital Signs/I&O Vital Signs Date Time Temp Pulse Resp B/P B/P Pulse O2 O2 Flow FiO2 Mean Ox Delivery Rate 01/19 0645 97.7 81 18 132/70 98 Room Air 01/18 2216 98.1 87 20 164/90 97 Room Air 01/18 1507 98.3 86 20 134/80 99 Room Air 01/18 1200 97.7 74 20 144/80 97 Room Air Intake & Output 01/19 1600 01/19 0800 01/19 0000 Intake Total 240 630 Output Total 600 Balance -360 630 Intake, IV 150 Intake, Oral 240 480 Output, Urine 600 Physical Exam General Appearance: Alert, Oriented X3, Cooperative, No Acute Distress Other Physical Findings: Generel- well developed, well nourished obese elderly kazakh man in no acute distress HEENT- NCAT, PERRL, EOMI, anicteric sclera CVS- S1, S2 w/o m/g/r Resp- CTA bilaterally GI- soft, nontender, moderated distended, no guarding/rigidity, bowel sounds intact Neuro- Awake and alert, CN II - XII grossly intact Ext- normal pulses, no cyanosis/clubbing, 1+ nonpitting edema Current Medications: Current Medications Sig/Estephanie Start time Last Medication Dose Route Stop Time Status Admin Diclofenac Sodium 1 ROXI BID 01/18 1051 AC 01/19 TOP 0912 Diphenhydramine HCl 25 MG Q6P PRN 01/16 1130 AC IV Docusate Sodium 100 MG BID 01/16 2200 AC 01/19 PO 0912 Heparin Sodium 5,000 UNIT Q8 01/18 1400 AC 01/19 (Porcine) SC 0519 Hydromorphone HCl 0.5 MG Q3P PRN 01/16 1130 AC 01/18 IV 2109 Insulin Aspart 0 TIDAC 01/18 1200 AC 01/18 SC 1752 Lactated Ringer's 1,000 ML Q20H 01/17 2345 DC / IV 01/18 1944 2351 Ondansetron HCl 4 MG Q6P PRN 01/16 1130 AC IV Polyethylene Glycol 17 GM AT BEDTIME 01/16 2200 AC / PO 2101 Senna/Docusate Sodium 2 TAB DAILY PRN 01/17 2100 AC PO Senna/Docusate Sodium 2 TAB AT BEDTIME 01/16 2200 AC 01/18 PO 2100 Assessment/Plan Assessment: Patient was kept NPO overnight in anticipation of a possible procedure today. He is to have a gastrografin enema for further assessment of a possible GI stricture. Echocardiogram demonstrated an ejection fraction of > 55% with no obvious wall motion abnormalities and an RV pressure of 60 mmHg. Eliquis is to be restarted after his procedure and patient will be transitioned to a beta kale in lieu of his calcicum channel kale. Lasix also remain on hold. Ileus / Possible Pancreatitis / Abdominal Pain Patient with no known gastrointestinal history or alcohol seen for evaluation of abdominal pain. Vitals signs within normal limits in the ED. Lipase 2088, WBC 11.0. CT negative for acute abdominal pathology. US abdomin also negative. Abdominal X-ray demonstrated an ileus possibly due to Verampamil. -General Medicine -Clear/Full -Pain control -Lactated Ringers @ 250mL/hr -Zofran 4mg IV Q6H PRN nausea -GI Consult Acute Kidney Injury / Anemia -Avoid NSAIDs and Nephrotoxic medications -Type & Screen -Maintain hemoglobin >8.0, transfuse as needed -PRBC transfused: 2 -Lasix/Losartan held -Daily CBC / BEP Atrial Fibrillation / SVT S/P AICD / Hypertension Patient of Dr. Naresh Sparks. Cardiology consult placed for evaluation of anticoagulation in the context of anemia. -Eliquis 5mg PO BID -Verapamil discontinued -Lopressor 25mg PO BID -Cardiology consult -Follow up echocardiogram Non-insulin Dependent Diabetes Mellitus -Accuchecks TIDAC/HS -Hold oral hypoglycemics -Novolog SSI -Diabetic diet Obstructive Sleep Apnea-Nocturnal CPAP Hyperlipidemia-pravastatin held while NPO Pain Plan-Dilaudid Bowel Regimen-Senna/Colace/Miralax Diet-Diabetic Diet DVT PPx-ALPS Code Status- FULL CODE Problem List: 1. Ileus Pain Ratin Pain Location: Abdomen/bilateral flank Pain Goal: Remain pain free Pain Plan: See assessment Tomorrow's Labs & Rationales: CBC BEP-theodora
--- NOTE | 2017-01-19 09:44 | ECHOCARDIOGRAM REPORT ---
EM CASTILLO Age: 76 : 1940 Gender: M Exam Date: 01/18/2017 19:08 Exam Location: [address] [place] [address] Ht (in): 63 Wt (lb): 165 BSA: 1.85 BP: 140 / 86 Ordering Physician: RUFUS RENDON MD Referring Physician: Naresh Sparks MD Technologist: Zahira Moody [facility] Room Number: 219 Indications: VALVULAR DISEASE Rhythm: Technical Quality: Fair FINDINGS Left Ventricle Left ventricular cavity size normal. Left ventricular wall thickness mildly increased. No obvious regional wall motion abnormalities. Left ventricular ejection fraction is estimated at > 55 %. Right Ventricle Catheter/pacemaker wire in the right ventricular cavity. Normal right ventricular size and function. Right Atrium Mild right atrial dilatation. Left Atrium Mild left atrial dilatation. Mitral Valve Mild mitral annular calcification. No mitral stenosis. Mild-to- moderate mitral regurgitation. Aortic Valve Diffuse thickening of the aortic valve cusps with reduced excursion. Mild aortic stenosis. Mild aortic regurgitation. Tricuspid Valve Structurally normal tricuspid valve. Mild tricuspid regurgitation. Right ventricular systolic pressure estimated to be elevated at 60 mmHg. Pulmonic Valve Pulmonic valve not well visualized, grossly normal. Pericardium No pericardial effusion. Great Vessels Normal size aortic root. CONCLUSIONS Left ventricular cavity size normal. Left ventricular wall thickness mildly increased. No obvious regional wall motion abnormalities. Left ventricular ejection fraction is estimated at > 55 %. Catheter/pacemaker wire in the right ventricular cavity. Normal right ventricular size and function. Mild right atrial dilatation. Mild left atrial dilatation. [id number] mitral regurgitation. Mild aortic stenosis. Right ventricular systolic pressure estimated to be elevated at 60 mmHg. Kehinde Acuna M.D. (Electronically Signed) Final Date: 19 Jan 2017 09:43 MEASUREMENTS (Male / Female) Normal Values 2D ECHO LV Diastolic Diameter PLAX 3.9 cm 4.2 - 5.9 / 3.9 - 5.3 cm LV Systolic Diameter PLAX 2.2 cm 2.1 - 4.0 cm LV Fractional Shortening PLAX 43.6 % 25 - 46 % LV Ejection Fraction 2D Teich 75.4 % IVS Diastolic Thickness 1.1 cm LVPW Diastolic Thickness 1.1 cm LV Relative Wall Thickness 0.6 RV Internal Dim ED PLAX 2.9 cm 1.9 - 3.8 cm LVOT Diameter 1.9 cm Aortic Root Diameter 2.8 cm LA Systolic Diameter LX 5.7 cm 3.0 - 4.0 / 2.7 - 3.8 cm LA Volume 56.0 cm 18 - 58 / 22 - 52 cm Ascending Aorta Diameter 3.7 cm DOPPLER AV Peak Velocity 219.0 cm/s AV Peak Gradient 19.2 mmHg AV Mean Velocity 158.0 cm/s AV Mean Gradient 11.0 mmHg AV Velocity Time Integral 46.8 cm LVOT Peak Velocity 138.0 cm/s LVOT Peak Gradient 7.6 mmHg LVOT Mean Velocity 96.8 cm/s LVOT Mean Gradient 4.0 mmHg LVOT Velocity Time Integral 27.0 cm LVOT Stroke Volume 76.6 cm AV Area Cont Eq vti 1.6 cm AV Area Cont Eq pk 1.8 cm MV Peak Velocity 189.0 cm/s MV Peak Gradient 14.3 mmHg MV Mean Velocity 74.4 cm/s MV Mean Gradient 3.0 mmHg Mitral E Point Velocity 176.0 cm/s MV PHT Velocity 195.0 cm/s MV Deceleration [place] 1282.0 cm/s MV Pressure Half Time 45.6 ms MV Area PHT 4.8 cm MV Deceleration Time 185.0 ms TR Peak Velocity 352.0 cm/s TR Peak Gradient 49.6 mmHg Right Atrial Pressure 5.0 mmHg Pulmonary Artery Systolic Pressu 54.6 mmHg Right Ventricular Systolic Press 54.6 mmHg PV Peak Velocity 120.0 cm/s PV Peak Gradient 5.8 mmHg PV Mean Velocity 79.2 cm/s PV Mean Gradient 3.0 mmHg PV Velocity Time Integral 21.5 cm LV E' Lateral Velocity 9.3 cm/s Mitral E to LV E' Lateral Ratio 19.0 LV E' Septal Velocity 6.0 cm/s Mitral E to LV E' Septal Ratio 29.3
--- NOTE | 2017-01-19 09:46 | PN- Att Addend ---
Attending Addendum Attending Brief Note Patient complains of minimal abdominal pain, passing gas and had 3 BM yesterday. General Appearance: Alert, No Acute Distress Skin: Grossly normal HEENT: PEERLA Neck: Supple, No JVD Cardiovascular: Regular Rate, Normal S1, Normal S2, No Murmurs Lungs: Clear to Auscultation, Normal Air Movement Abdomen: Distended abdomen, positive bowel sounds Neurological: Normal Speech, Strength at 5/5 X4 Ext, Cranial Nerves 3-12 NL, Reflexes 2+ Extremities: No Clubbing, No Cyanosis, No Edema Vascular: Normal Pulses Assessment Improved abdominal pain. He is currently awaiting Gastrografin from an DENNY to rule out any strictures. Obstipation improved with 3 bowel movements. Having good bowel sounds. We will advance his diet post procedure. Discontinue verapamil for constipation and Eliquis held in anticipation of colonoscopy. Plan Gastrografin enema Start clear liquid diet after procedure Hold Lasix Continue to hold eliquis Continue other medications Current Medications Sig/Estephanie Start time Last Medication Dose Route Stop Time Status Admin Apixaban 5 MG BID 01/17 1000 DC 01/17 PO 2113 Diclofenac Sodium 1 ROXI BID 01/18 1051 AC 01/19 TOP 0912 Diphenhydramine HCl 25 MG Q6P PRN 01/16 1130 AC IV Docusate Sodium 100 MG BID 01/16 2200 AC 01/19 PO 0912 Heparin Sodium 5,000 UNIT Q8 01/18 1400 AC 01/19 (Porcine) SC 0519 Hydromorphone HCl 0.5 MG Q3P PRN 01/16 1130 AC 01/18 IV 2109 Insulin Aspart 0 TIDAC 01/18 1200 AC 01/18 SC 1752 Insulin Human Regular 0 Q6 01/16 1856 DC 01/17 SC 1509 Lactated Ringer's 1,000 ML Q20H 01/17 2345 DC 01/17 IV 01/18 1944 2351 Ondansetron HCl 4 MG Q6P PRN 01/16 1130 AC IV Polyethylene Glycol 17 GM AT BEDTIME 01/16 2200 AC 01/18 PO 2101 Senna/Docusate Sodium 2 TAB DAILY PRN 01/17 2100 AC PO Senna/Docusate Sodium 2 TAB AT BEDTIME 01/16 2200 AC 01/18 PO 2100 Verapamil HCl 120 MG DAILY 01/17 1000 DC 01/17 PO 0936 Vital Signs Date Time Temp Pulse Resp B/P B/P Pulse O2 O2 Flow FiO2 Mean Ox Delivery Rate 01/19 0645 97.7 81 18 132/70 98 Room Air 01/18 2216 98.1 87 20 164/90 97 Room Air 01/18 1507 98.3 86 20 134/80 99 Room Air 01/18 1200 97.7 74 20 144/80 97 Room Air
--- NOTE | 2017-01-19 12:35 | PN- Cardiology ---
Subjective Subjective: Patient sitting in his chair and resting comfortably. Denies any chest pain or dyspnea. Has minimal residual abdominal pain. Objective Vital Signs and I&Os Vital Signs Date Time Temp Pulse Resp B/P B/P Pulse O2 O2 Flow FiO2 Mean Ox Delivery Rate 01/19 0645 97.7 81 18 132/70 98 Room Air 01/18 2216 98.1 87 20 164/90 97 Room Air 01/18 1507 98.3 86 20 134/80 99 Room Air Intake & Output 01/19 1600 01/19 0800 01/19 0000 01/18 1600 01/18 0800 01/18 0000 Intake Total 240 630 767 401 8095 Output Total 600 1000 500 Balance -360 630 880 -600 750 Intake, IV 150 642 743 6692 Intake, Oral 240 480 480 Number 2 Bowel Movements Output, Urine 600 1000 500 Patient 165 lb Weight Physical Exam: General: no apparent distress. Alert. Eyes: No obvious scleral icterus. HEENT: No jugular venous distention or abnormal jugular venous pulsations. Cardiovascular: Normal intensity S1/S2. ICD noted. Respiratory: Lungs clear to auscultation bilaterally. Abdomen: no guarding or rebound tenderness. Musculoskeletal: No clubbing or cyanosis noted, trace lower extremity edema Skin: Warm Neurologic: No gross focal deficits noted. Current Medications: Current Medications Sig/Estephanie Start time Last Medication Dose Route Stop Time Status Admin Apixaban 5 MG BID 01/19 2200 AC PO Diclofenac Sodium 1 ROXI BID 01/18 1051 AC 01/19 TOP 0912 Diphenhydramine HCl 25 MG Q6P PRN 01/16 1130 AC IV Docusate Sodium 100 MG BID 01/16 220 AC 01/19 PO 0912 Heparin Sodium 5,000 UNIT Q8 01/18 1400 AC 01/19 (Porcine) SC 01/19 2100 0519 Hydromorphone HCl 0.5 MG Q3P PRN 01/16 1130 AC 01/18 IV 2109 Insulin Aspart 0 TIDAC 01/18 1200 AC 01/18 SC 1752 Lactated Ringer's 1,000 ML Q20H 01/17 2345 DC 01/17 IV 01/18 1944 2351 Metoprolol Tartrate 25 MG BID 01/19 220 AC PO Ondansetron HCl 4 MG Q6P PRN 01/16 1130 AC IV Polyethylene Glycol 17 GM AT BEDTIME 01/16 2200 AC 01/18 PO 2100 Senna/Docusate Sodium 2 TAB DAILY PRN 01/17 2100 AC PO Senna/Docusate Sodium 2 TAB AT BEDTIME 01/16 2200 AC 01/18 PO 2100 Results Last 48 Hrs of Labs/Mics: Laboratory Tests 01/18/17 0620: Anion Gap 18 H, Estimated GFR 50 L, BUN/Creatinine Ratio 25.0, Calcium 9.1, Phosphorus 3.7, Magnesium 1.6, CBC w Diff NO MAN DIFF REQ, RBC 4.46 L, MCV 66.2 L, MCH 20.3 L, RDW 29.7 H, MPV 8.5, Gran % 79.7 H, Lymphocytes % 7.7 L, Monocytes % 11.3 H, Eosinophils % 1.0, Basophils % 0.3, Absolute Granulocytes 9.8 H, Absolute Lymphocytes 0.9 L, Absolute Monocytes 1.4 H, Absolute Eosinophils 0.1, Absolute Basophils 0, PUBS MCHC 30.7 L Recent Imaging Studies: Abdominal x-ray IMPRESSION: Slight interval decompression of previously identified air-filled loops of small and large bowel throughout the abdomen and pelvis. This bowel gas pattern is most suggestive of ileus. No air-fluid levels are identified. Echocardiogram CONCLUSIONS Left ventricular cavity size normal. Left ventricular wall thickness mildly increased. No obvious regional wall motion abnormalities. Left ventricular ejection fraction is estimated at > 55 %. Catheter/pacemaker wire in the right ventricular cavity. Normal right ventricular size and function. Mild right atrial dilatation. Mild left atrial dilatation. [id number] mitral regurgitation. Mild aortic stenosis. Right ventricular systolic pressure estimated to be elevated at 60 mmHg. Kehinde Acuna M.D. (Electronically Signed) Final Date: 19 Jan 2017 09:43 Assessment/Plan Assessment/Plan 1. Persistent atrial fibrillation on Eliquis 2. Ventricular tachycardia status post AICD. The device is under advisory due to questionable battery life. 3. Coronary disease by history with 80% ostial diagonal by catheterization December 2014 otherwise nonflow limiting disease managed medically. Ejection fraction at that time was 80% 4. Mild aortic stenosis by history 5. Hypertension 6. 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 Dyslipidemia 8. Abdominal pain with possible ileus 9. Epistaxis by history no documented recurrence on Eliquis 10. Anemia 11. Mild renal insufficiency Case discussed with house staff at length this morning. Patient appears comfortable with no evidence of decompensated congestive heart failure. Echocardiogram shows normal biventricular function with mild aortic stenosis. Heart rate appears well controlled on vital signs. Would not resume the verapamil but would start metoprolol 25 mg by mouth twice a day. Resume anticoagulation when cleared. Will be planned for ICD generator change in the future as an outpatient. Ming Acuna MD [facility] Continue telemetry? Not applicable
--- NOTE | 2017-01-19 14:19 | PN- Gastroenterology ---
Assessment/Plan Assessment/Recommendations: Patient not seen today; undergoing contrast enema. Per discussion with house staff, he is doing well with decreased pain and distention. Following the contrast study, if negative for obstruction/stricture, would advance to full liquid diet with polymeric supplements. Appreciate cardiology input re- stopping verapamil. Will follow up tomorrow and discuss timing of endoscopic evaluation (please make diet clear liquids as of tomorrow morning). Subjective Subjective: Patient undergoing contrast enema. Objective Vital Signs and I&Os Vital Signs Date Time Temp Pulse Resp B/P B/P Pulse O2 O2 Flow FiO2 Mean Ox Delivery Rate 01/19 645 97.7 81 18 132/70 98 Room Air 01/18 2216 98.1 87 20 164/90 97 Room Air 01/18 1507 98.3 86 20 134/80 99 Room Air Intake & Output 01/19 1600 01/19 0400 01/18 1600 01/18 0400 01/17 1600 01/17 0400 Intake Total 622 507 0065 1250 1120 750 Output Total 600 1000 500 450 975 Balance -360 630 280 750 670 -225 Intake, IV 363 636 0375 1000 750 Intake, Oral 240 480 480 120 0 Number 2 Bowel Movements Output, Urine 600 1000 500 450 975 Patient 165 lb Weight Results Pertinent Lab Results: Laboratory Tests 01/18 01/17 0620 0633 Chemistry Sodium (137 - 145 mmol/L) 143 144 Potassium (3.5 - 5.1 mmol/L) 4.0 3.9 Chloride (98 - 107 mmol/L) 101 104 Carbon Dioxide (22 - 30 mmol/L) 24 22 Anion Gap (5 - 16) 18 H 17 H BUN (9 - 20 mg/dL) 35 H 31 H Creatinine (0.7 - 1.2 mg/dL) 1.4 H 1.3 H Estimated GFR (>60 ml/min) 50 L 54 L BUN/Creatinine Ratio (7 - 25 %) 25.0 23.8 Calcium (8.4 - 10.2 mg/dL) 9.1 Phosphorus (2.5 - 4.5 mg/dL) 3.7 Magnesium (1.6 - 2.3 mg/dL) 1.6 Hematology CBC w Diff NO MAN DIFF REQ NO MAN DIFF REQ WBC (4.8 - 10.8 /CUMM) 12.3 H 12.7 H RBC (4.70 - 6.10 /CUMM) 4.46 L 4.58 L Hgb (14.0 - 18.0 G/DL) 9.1 L 9.2 L Hct (42 - 52 %) 29.5 L 30.4 L MCV (80.0 - 94.0 FL) 66.2 L 66.4 L MCH (27.0 - 31.0 PG) 20.3 L 20.2 L RDW (11.5 - 14.5 %) 29.7 H 29.4 H Plt Count (130 - 400 /CUMM) 186 197 MPV (7.4 - 10.4 FL) 8.5 8.5 Gran % (42.2 - 75.2 %) 79.7 H 83.7 H Lymphocytes % (20.5 - 51.1 %) 7.7 L 4.9 L Monocytes % (1.7 - 9.3 %) 11.3 H 10.5 H Eosinophils % (0 - 5 %) 1.0 0.8 Basophils % (0.0 - 2.0 %) 0.3 0.1 Absolute Granulocytes (1.4 - 6.5 /CUMM) 9.8 H 10.6 H Absolute Lymphocytes (1.2 - 3.4 /CUMM) 0.9 L 0.6 L Absolute Monocytes (0.10 - 0.60 /CUMM) 1.4 H 1.3 H Absolute Eosinophils (0.0 - 0.7 /CUMM) 0.1 0.1 Absolute Basophils (0.0 - 0.2 /CUMM) 0 0 PUBS MCHC (33.0 - 37.0 G/DL) 30.7 L 30.4 L 01/16 2114 Chemistry Sodium (137 - 145 mmol/L) 141 Potassium (3.5 - 5.1 mmol/L) 3.8 Chloride (98 - 107 mmol/L) 103 Carbon Dioxide (22 - 30 mmol/L) 23 Anion Gap (5 - 16) 16 BUN (9 - 20 mg/dL) 35 H Creatinine (0.7 - 1.2 mg/dL) 1.4 H Estimated GFR (>60 ml/min) 50 L BUN/Creatinine Ratio (7 - 25 %) 25.0 Hematology CBC w Diff NO MAN DIFF REQ WBC (4.8 - 10.8 /CUMM) 10.4 RBC (4.70 - 6.10 /CUMM) 4.34 L Hgb (14.0 - 18.0 G/DL) 8.8 L Hct (42 - 52 %) 28.8 L MCV (80.0 - 94.0 FL) 66.2 L MCH (27.0 - 31.0 PG) 20.4 L RDW (11.5 - 14.5 %) 29.8 H Plt Count (130 - 400 /CUMM) 185 MPV (7.4 - 10.4 FL) 8.3 Gran % (42.2 - 75.2 %) 72.2 Lymphocytes % (20.5 - 51.1 %) 14.5 L Monocytes % (1.7 - 9.3 %) 11.0 H Eosinophils % (0 - 5 %) 1.6 Basophils % (0.0 - 2.0 %) 0.7 Absolute Granulocytes (1.4 - 6.5 /CUMM) 7.5 H Absolute Lymphocytes (1.2 - 3.4 /CUMM) 1.5 Absolute Monocytes (0.10 - 0.60 /CUMM) 1.2 H Absolute Eosinophils (0.0 - 0.7 /CUMM) 0.2 Absolute Basophils (0.0 - 0.2 /CUMM) 0.1 PUBS MCHC (33.0 - 37.0 G/DL) 30.8 L
[2017-01-19 14:43] VITALS: BP 148/80
--- NOTE | 2017-01-19 15:02 | RADIOLOGY REPORT ---
EXAMINATION: XR GASTROGRAFIN SERIES CLINICAL INFORMATION: Ileus, possible stricture. Abdominal pain and distention. COMPARISON: CT scan of the abdomen and pelvis 01/16/2017 and abdominal x-ray 01/18/2017. TECHNIQUE: A collar packer film of the abdomen was obtained. 1.5 L of Gastrografin was infused per rectum through an enema tube into the large bowel. A balloon was dilated in the rectum. Multiple images were obtained. At the end of the study, the balloon was deflated and the enema tube was removed. FINDINGS: The collar packer image redemonstrates the air-filled loops of large bowel in the left hemiabdomen, with a caliber of 7.2 cm, slightly increased compared to the prior study. Mildly prominent loops of small bowel are also seen. Gastrografin was infused into the rectum by gravity. There was relative holdup of passage of contrast at the mid sigmoid region; and the colon was moderately distended. There was further passage of the Gastrografin into the remainder of the sigmoid colon and into the descending colon. At the level of the splenic flexure, holdup to contrast flow was noted, and despite placing the patient in multiple positions, further flow of contrast was not able to be done. At this time, there was reflux of contrast through the rectal tube into the administration bag, and the study was terminated. There was no leak of contrast from the bowel into the abdomen. FLUOROSCOPY TIME: 3 minutes and 37 seconds NUMBER OF IMAGES: 32 IMPRESSION: 1. There was relative holdup of passage of Gastrografin at the mid sigmoid region, with distention of the bowel from this area to the rectum. 2. However, contrast passed into the proximal sigmoid colon and the descending colon as described above, although the contrast column could not be run further than the splenic flexure despite positional changes. 3. No leakage of contrast from the colon was demonstrated at any time.
[2017-01-19 22:49] VITALS: BP 130/76
[2017-01-20 06:14] VITALS: BP 122/82
--- NOTE | 2017-01-20 07:07 | PN- Housestaff ---
Subjective Follow-up For: Ileus Possible Pancreatitis Anema Acute Kidney Injury Subjective: Patient seen and examined. He is seen lying on his side in bed resting comfortably. He appears to be in no acute distress. He reports having two large bowel movements over night and moderately improved of his abdominal pain/ discomfort. He otherwise feels well and wants to eat a larger meal. He is requesting to be discharged to home. Specific review of systems complaints are difficult to obtain. No overnight events reported. Review of Systems Constitutional: Reports: see HPI. Objective Last 24 Hrs of Vital Signs/I&O Vital Signs Date Time Temp Pulse Resp B/P B/P Pulse O2 O2 Flow FiO2 Mean Ox Delivery Rate 01/20 0929 70 120/80 01/20 0800 Room Air 01/20 0614 98.0 65 20 122/82 98 Room Air 01/19 2249 98.6 96 20 130/76 96 Room Air 01/19 2227 84 148/80 01/19 1443 97.9 84 18 148/80 98 Room Air Intake & Output 01/20 1600 01/20 0800 01/20 0000 Intake Total 200 620 Output Total Balance 200 620 Intake, Oral 200 620 Number 1 Bowel Movements Physical Exam General Appearance: Alert, Oriented X3, Cooperative, No Acute Distress Other Physical Findings: General- well developed, well nourished obese elderly [place]ov[place] man in no acute distress HEENT- NCAT, PERRL, EOMI, anicteric sclera CVS- S1, S2 w/o m/g/r Resp- CTA bilaterally GI- soft, nontender, moderated distended, no guarding/rigidity, bowel sounds intact Neuro- Awake and alert, CN II - XII grossly intact Ext- normal pulses, no cyanosis/clubbing, 1+ nonpitting edema Current Medications: Current Medications Sig/Estephanie Start time Last Medication Dose Route Stop Time Status Admin Apixaban 5 MG BID 01/19 220 AC 01/20 PO 0929 Diclofenac Sodium 1 ROXI BID 01/18 1051 AC 01/20 TOP 0929 Diphenhydramine HCl 25 MG Q6P PRN 01/16 1130 AC IV Docusate Sodium 100 MG BID 01/16 2200 AC 01/20 PO 0929 Heparin Sodium 5,000 UNIT Q8 01/18 1400 DC 01/19 (Porcine) SC 01/19 2100 1239 Hydromorphone HCl 0.5 MG Q3P PRN 01/16 1130 AC 01/18 IV 2109 Insulin Aspart 0 TIDAC 01/18 1200 AC 01/20 SC 1245 Metoprolol Tartrate 25 MG BID 01/19 220 AC 01/20 PO 0929 Ondansetron HCl 4 MG Q6P PRN 01/16 1130 AC IV Patient Medication 1 ED ONE ONE 01/19 1400 DC Teaching ED 01/19 1401 Polyethylene Glycol 17 GM AT BEDTIME 01/16 2200 AC 01/19 PO 2226 Senna/Docusate Sodium 2 TAB DAILY PRN 01/17 2100 AC PO Senna/Docusate Sodium 2 TAB AT BEDTIME 01/16 2200 AC 01/19 PO 2227 Last 24 Hrs of Lab/Colby Results Last 24 Hrs of Labs/Mics: Laboratory Tests 01/20/17 0620: Anion Gap 15, Estimated GFR 59 L, BUN/Creatinine Ratio 21.7, CBC w Diff NO MAN DIFF REQ, RBC 4.90, MCV 66.2 L, MCH 20.0 L, RDW 29.7 H, MPV 8.7, Gran % 72.5, Lymphocytes % 11.8 L, Monocytes % 12.8 H, Eosinophils % 2.7, Basophils % 0.2, Absolute Granulocytes 5.4, Absolute Lymphocytes 0.9 L, Absolute Monocytes 1.0 H, Absolute Eosinophils 0.2, Absolute Basophils 0, PUBS MCHC 30.2 L Assessment/Plan Assessment: Patient reports two spontaneous bowel movements overnight without aid of any enema or aggressive laxatives. He is continued on metoprolol and eliquis and tolerated them both well without any obvious side effects. Lasix remain on hold. White blood cell count normalized today. Repeat abdominal x-ray demonstrated mildly more dilated small bowel loops. He is to undergo a flexible sigmoidoscopy tomorrow morning. Ileus / Possible Pancreatitis / Abdominal Pain Patient with no known gastrointestinal history or alcohol seen for evaluation of abdominal pain. Vitals signs within normal limits in the ED. Lipase 2088, WBC 11.0. CT negative for acute abdominal pathology. US abdomin also negative. Abdominal X-ray demonstrated an ileus possibly due to Verampamil. -General Medicine -Clear/Full liquid diet -Pain control -Lactated Ringers @ 250mL/hr -Zofran 4mg IV Q6H PRN nausea -GI Consult Acute Kidney Injury / Anemia -Avoid NSAIDs and Nephrotoxic medications -Type & Screen -Maintain hemoglobin >8.0, transfuse as needed -PRBC transfused: 2 -Lasix/Losartan held -Daily CBC / BEP Atrial Fibrillation / SVT S/P AICD / Hypertension Patient of Dr. Naresh Sparks. Cardiology consult placed for evaluation of anticoagulation in the context of anemia. -Eliquis 5mg PO BID -Verapamil discontinued -Lopressor 25mg PO BID -Cardiology consult -Follow up echocardiogram Non-insulin Dependent Diabetes Mellitus -Accuchecks TIDAC/HS -Hold oral hypoglycemics -Novolog SSI -Diabetic diet Obstructive Sleep Apnea-Nocturnal CPAP Hyperlipidemia-pravastatin held while NPO Pain Plan-Dilaudid Bowel Regimen-Senna/Colace/Miralax Diet-Diabetic Diet DVT PPx-ALPS Code Status- FULL CODE Problem List: 1. Ileus Pain Ratin Pain Location: Abdomen Pain Goal: Remain pain free Pain Plan: See assessment Tomorrow's Labs & Rationales: none
[2017-01-20 08:23] LABS: ABSOLUTE BASOPHIL COUNT 0 /CUMM (0.0-0.2); ABSOLUTE EOSINOPHIL COUNT 0.2 /CUMM (0.0-0.7); ABSOLUTE GRANULOCYTE CT 5.4 /CUMM (1.4-6.5); ABSOLUTE LYMPH COUNT 0.9 /CUMM (1.2-3.4); BASOPHIL % 0.2 % (0.0-2.0); EOSINOPHIL % 2.7 % (0-5); GRANULOCYTE % 72.5 % (42.2-75.2); HEMATOCRIT 32.5 % (42-52); MEAN CORPUSCULAR HGB CONC 30.2 G/DL (33.0-37.0); MEAN PLATELET VOLUME 8.7 FL (7.4-10.4); PLATELET COUNT 200 /CUMM (130-400); RBC DISTRIBUTION WIDTH 29.7 % (11.5-14.5); WHITE BLOOD CELL COUNT 7.5 /CUMM (4.8-10.8)
[2017-01-20 08:31] LABS: MEAN CORPUSCULAR VOLUME 66.2 FL (80.0-94.0)
--- NOTE | 2017-01-20 09:20 | PN- Cardiology ---
Subjective Subjective: Had discussion with nursing staff. Apparently he had a bowel movement last night. He has not had his endoscopy yet and this might be planned for tomorrow. Patient denies any chest pain or unusual shortness of breath. Objective Vital Signs and I&Os Vital Signs Date Time Temp Pulse Resp B/P B/P Pulse O2 O2 Flow FiO2 Mean Ox Delivery Rate 01/20 0614 98.0 65 20 122/82 98 Room Air 01/19 2249 98.6 96 20 130/76 96 Room Air 01/19 2227 84 148/80 01/19 1443 97.9 84 18 148/80 98 Room Air Intake & Output 01/20 1600 01/20 0800 01/20 0000 01/19 1600 01/19 0800 01/19 0000 Intake Total 200 620 450 240 630 Output Total 600 Balance 200 620 450 -360 630 Intake, IV 150 Intake, Oral 200 620 450 240 480 Number 1 Bowel Movements Output, Urine 600 Patient 165 lb Weight Physical Exam: Patient is comfortable sitting in a chair having breakfast Head normocephalic atraumatic eyes sclera anicteric conjunctiva showed no pallor extraocular muscles were normal Neck no jugular venous distention no thyroid masses no palpable nodes Chest lungs were clear bilaterally Heart regular rhythm grade 1 to 2/6 systolic murmur Abdomen soft protuberant bowel sounds normal Extremities no clubbing cyanosis or pedal edema Neurological no gross motor or sensory deficits Current Medications: Current Medications Sig/Estephanie Start time Last Medication Dose Route Stop Time Status Admin Apixaban 5 MG BID 01/19 2200 AC PO Diclofenac Sodium 1 ROXI BID 01/18 1051 AC 01/19 TOP 2227 Diphenhydramine HCl 25 MG Q6P PRN 01/16 1130 AC IV Docusate Sodium 100 MG BID 01/16 2200 AC 01/19 PO 2227 Heparin Sodium 5,000 UNIT Q8 01/18 1400 DC 01/19 (Porcine) SC 01/19 2100 1239 Hydromorphone HCl 0.5 MG Q3P PRN 01/16 1130 AC 01/18 IV 2109 Insulin Aspart 0 TIDAC 01/18 1200 AC 01/19 SC 1239 Metoprolol Tartrate 25 MG BID 01/19 2200 AC 01/19 PO 2227 Ondansetron HCl 4 MG Q6P PRN 01/16 1130 AC IV Patient Medication 1 ED ONE ONE 01/19 1400 DC Teaching ED 01/19 1401 Polyethylene Glycol 17 GM AT BEDTIME 01/16 2200 AC 01/19 PO 2226 Senna/Docusate Sodium 2 TAB DAILY PRN 01/17 2100 AC PO Senna/Docusate Sodium 2 TAB AT BEDTIME 01/16 2200 AC 01/19 PO 2227 Results Last 48 Hrs of Labs/Mics: Laboratory Tests 01/20/17 0620: Anion Gap 15, Estimated GFR 59 L, BUN/Creatinine Ratio 21.7, CBC w Diff NO MAN DIFF REQ, RBC 4.90, MCV 66.2 L, MCH 20.0 L, RDW 29.7 H, MPV 8.7, Gran % 72.5, Lymphocytes % 11.8 L, Monocytes % 12.8 H, Eosinophils % 2.7, Basophils % 0.2, Absolute Granulocytes 5.4, Absolute Lymphocytes 0.9 L, Absolute Monocytes 1.0 H, Absolute Eosinophils 0.2, Absolute Basophils 0, PUBS MCHC 30.2 L Assessment/Plan Assessment/Plan In summary this 76-year-old gentleman has the following problems 1. Persistent atrial fibrillation on Eliquis 2. Ventricular tachycardia status post AICD. The device is under advisory due to questionable battery life. 3. Coronary disease by history with 80% ostial diagonal by catheterization December 2014 otherwise nonflow limiting disease managed medically. Ejection fraction at that time was 80% 4. Mild aortic stenosis by history 5. Hypertension 6. 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 Dyslipidemia 8. Abdominal pain with possible ileus 9. Epistaxis by history no documented recurrence on Eliquis 10. Anemia 11. Mild renal insufficiency His current medical admission was mainly related to ileus. This might have been precipitated by the verapamil. He is off this medication at the moment. GI workup in progress. Continue present medications. 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 Continue telemetry? Not applicable
--- NOTE | 2017-01-20 09:29 | PN- Att Addend ---
Attending Addendum Attending Brief Note Patient complains of minimal abdominal pain, passing gas and having BM General Appearance: Alert, No Acute Distress Skin: Grossly normal HEENT: PEERLA Neck: Supple, No JVD Cardiovascular: Regular Rate, Normal S1, Normal S2, No Murmurs Lungs: Clear to Auscultation, Normal Air Movement Abdomen: Distended abdomen, positive bowel sounds Neurological: Normal Speech, Strength at 5/5 X4 Ext, Cranial Nerves 3-12 NL, Reflexes 2+ Extremities: No Clubbing, No Cyanosis, No Edema Vascular: Normal Pulses Assessment Improved abdominal pain. Gastrografin study shows possible distal strictures, not confirmatory. Plan for flex-sig to rule out strictures. Discontinue verapamil for constipation per cardio and Eliquis restarted. Plan Flex-sig continue clear liquid diet Hold Lasix resume eliquis Continue other medications Current Medications Sig/Estephanie Start time Last Medication Dose Route Stop Time Status Admin Apixaban 5 MG BID 01/19 220 AC PO Diclofenac Sodium 1 ROXI BID 01/18 1051 AC 01/19 TOP 2227 Diphenhydramine HCl 25 MG Q6P PRN 01/16 1130 AC IV Docusate Sodium 100 MG BID 01/16 2200 AC 01/19 PO 2227 Heparin Sodium 5,000 UNIT Q8 01/18 1400 DC 01/19 (Porcine) SC 01/19 2100 1239 Hydromorphone HCl 0.5 MG Q3P PRN 01/16 1130 AC 01/18 IV 2109 Insulin Aspart 0 TIDAC 01/18 1200 AC 01/19 SC 1239 Metoprolol Tartrate 25 MG BID 01/19 220 AC 01/19 PO 2227 Ondansetron HCl 4 MG Q6P PRN 01/16 1130 AC IV Patient Medication 1 ED ONE ONE 01/19 1400 HI Teaching ED 01/19 1401 Polyethylene Glycol 17 GM AT BEDTIME 01/16 2200 AC 01/19 PO 2226 Senna/Docusate Sodium 2 TAB DAILY PRN 01/17 2100 AC PO Senna/Docusate Sodium 2 TAB AT BEDTIME 01/16 2200 AC 01/19 PO 2227 Laboratory Tests 01/20 0620 Chemistry Sodium (137 - 145 mmol/L) 141 Potassium (3.5 - 5.1 mmol/L) 4.2 Chloride (98 - 107 mmol/L) 101 Carbon Dioxide (22 - 30 mmol/L) 25 Anion Gap (5 - 16) 15 BUN (9 - 20 mg/dL) 26 H Creatinine (0.7 - 1.2 mg/dL) 1.2 Estimated GFR (>60 ml/min) 59 L BUN/Creatinine Ratio (7 - 25 %) 21.7 Hematology CBC w Diff NO MAN DIFF REQ WBC (4.8 - 10.8 /CUMM) 7.5 RBC (4.70 - 6.10 /CUMM) 4.90 Hgb (14.0 - 18.0 G/DL) 9.8 L Hct (42 - 52 %) 32.5 L MCV (80.0 - 94.0 FL) 66.2 L MCH (27.0 - 31.0 PG) 20.0 L RDW (11.5 - 14.5 %) 29.7 H Plt Count (130 - 400 /CUMM) 200 MPV (7.4 - 10.4 FL) 8.7 Gran % (42.2 - 75.2 %) 72.5 Lymphocytes % (20.5 - 51.1 %) 11.8 L Monocytes % (1.7 - 9.3 %) 12.8 H Eosinophils % (0 - 5 %) 2.7 Basophils % (0.0 - 2.0 %) 0.2 Absolute Granulocytes (1.4 - 6.5 /CUMM) 5.4 Absolute Lymphocytes (1.2 - 3.4 /CUMM) 0.9 L Absolute Monocytes (0.10 - 0.60 /CUMM) 1.0 H Absolute Eosinophils (0.0 - 0.7 /CUMM) 0.2 Absolute Basophils (0.0 - 0.2 /CUMM) 0 PUBS MCHC (33.0 - 37.0 G/DL) 30.2 L Vital Signs Date Time Temp Pulse Resp B/P B/P Pulse O2 O2 Flow FiO2 Mean Ox Delivery Rate 01/20 0614 98.0 65 20 122/82 98 Room Air 01/199 98.6 96 20 130/76 96 Room Air 01/19 2227 84 148/80 01/19 1443 97.9 84 18 148/80 98 Room Air
--- NOTE | 2017-01-20 12:43 | RADIOLOGY REPORT ---
EXAMINATION: XR ABDOMEN MULTIPLE VIEWS CLINICAL INDICATION: Follow-up ileus. COMPARISON: 01/18/2017 TECHNIQUE: Supine and erect. FINDINGS: There is no evidence of intraperitoneal free air. Multiple air-filled loops of large and small bowel are again identified throughout the abdomen with more distended small bowel loops identified centrally. Differential remains ileus versus obstruction no residual contract from the recent Gastrografin enema study is identified. No pathologic-appearing calcifications are seen. Osseous structures demonstrate degenerative changes at the lumbosacral junction. Lung bases are clear with dual pacer leads identified. IMPRESSION: Persistent ileus versus obstruction. Small bowel loops appear more dilated on today's exam.
[2017-01-20 14:04] VITALS: BP 132/86
[2017-01-20 22:00] VITALS: BP 146/84
--- NOTE | 2017-01-20 23:35 | NUR ---
NURSING NOTE: PT ORDERED FOR CLEAR LIQUID DIET, ? FLEX SIG IN AM, RN CALLED SYSTEMS ADMINISTRATOR 137. SYSTEMS ADMINISTRATOR STATES PT DOES NOT NEED TO BE NPO TONIGHT. PER SYSTEMS ADMINISTRATOR NO NEED FOR IVF OR TO CHANGE INSULIN SS. PT NOTED TO BE ON ELIQUIS, SYSTEMS ADMINISTRATOR #137 STATES PT DOES NOT NEED INR DRAWN, PT AWAKE, A/OX3, [place] SPEAKING, BED ALARM IN PLACE. CONT TO MONITOR.
[2017-01-20 23:48] VITALS: BP 130/82
--- NOTE | 2017-01-21 05:40 | NUR ---
NURSING NOTE: PT RECEIVED MAGNESIUM CITRATE AT 2200PM; DRANK ALL OF BOTTLE. PT DID NOT EAT OR DRINK ANYTHING SINCE 0000 FOR FLEX SIG TODAY; FINGERSTICK GLUCOSE 133 AT THIS TIME. PT HAD 2 WATERY LIGHT BROWN BMS THIS SHIFT; GUIAC NEGATIVE COAL OR ORE CONTROLLER 137 AWARE AND TO FOLLOW UP WITH DAY TEAM ABOUT NPO/IVF/CHANGING INSULIN SCALE IF NEEDED, CONT TO MONITOR. PT SITTING IN CHAIR AT THIS TIME, DENIES COMPLAINTS, AWARE NOT TO EAT OR DRINK, VERBALIZES UNDERSTANDING. CHAIR ALARM IN PLACE AND WORKING.
--- NOTE | 2017-01-21 06:01 | PN- Housestaff ---
Subjective Follow-up For: Ileus Possible Pancreatitis Anema Acute Kidney Injury Subjective: Patient seen and examined. He is seen sitting in his chair at bedside. He appears to be in no acute distress. He reports having several more bowel movements overnight and has improved abdominal discomfort. He otherwise feels well and has no new subjective complaints. Specific review of systems complaints are difficult to obtain. No overnight events reported. Review of Systems Constitutional: Reports: see HPI. Objective Last 24 Hrs of Vital Signs/I&O Vital Signs Date Time Temp Pulse Resp B/P B/P Pulse O2 O2 Flow FiO2 Mean Ox Delivery Rate 01/21 0658 98.0 71 22 138/84 97 Room Air 01/21 0536 97 Room Air 01/20 2348 97.8 60 20 130/82 96 Room Air 01/20 2200 97.9 60 20 146/84 97 Room Air 01/20 2118 60 146/84 01/20 1600 99 Room Air Intake & Output 01/21 1600 01/21 0800 01/21 0000 Intake Total 10 720 Output Total 450 Balance -440 720 Intake, IV 10 Intake, Oral 0 720 Number 2 Bowel Movements Output, Urine 450 Physical Exam General Appearance: Alert, Oriented X3, Cooperative, No Acute Distress Other Physical Findings: General- well developed, well nourished obese elderly iranian man in no acute distress HEENT- NCAT, PERRL, EOMI, anicteric sclera CVS- S1, S2 w/o m/g/r Resp- CTA bilaterally GI- soft, nontender, moderated distended, no guarding/rigidity, bowel sounds intact Neuro- Awake and alert, CN II - XII grossly intact Ext- normal pulses, no cyanosis/clubbing, 1+ nonpitting edema Current Medications: Current Medications Sig/Estephanie Start time Last Medication Dose Route Stop Time Status Admin Albuterol Sulfate 2 PUF Q4P PRN 01/20 1915 AC 01/21 INH 0817 Apixaban 5 MG BID 01/19 2200 AC 01/21 PO 1000 Diclofenac Sodium 1 ROXI BID 01/18 1051 AC 01/21 TOP 1000 Diphenhydramine HCl 25 MG Q6P PRN 01/16 1130 AC IV Docusate Sodium 100 MG BID 01/16 2200 AC 05 PO 1000 Hydromorphone HCl 0.5 MG Q3P PRN 01/16 1130 AC 01/18 IV 2109 Insulin Aspart 0 TIDAC 01/18 1200 DC 01/20 SC 1245 Insulin Human Regular 0 Q6 01/21 1200 AC 01/21 SC 1215 Magnesium Citrate 300 ML ONCE ONE 01/200 DC 01/20 PO 01/20 Metoprolol Tartrate 25 MG BID 01/19 2200 AC 01/21 PO 1000 Ondansetron HCl 4 MG Q6P PRN 01/16 1130 AC IV Patient Medication 1 ED .STK-MED ONE 01/21 1253 SC Teaching ED 01/21 1254 Polyethylene Glycol 17 GM AT BEDTIME 01/16 2200 AC 01/20 PO 2117 Senna/Docusate Sodium 2 TAB DAILY PRN 01/17 2100 AC PO Senna/Docusate Sodium 2 TAB AT BEDTIME 01/16 2200 AC 01/20 PO 2117 Assessment/Plan Assessment: Patient was underwent a colonoscopy this morning that did not clearly identify any stricture, mass, or lesion. Patient is to be discharged to home today with instruction to follow a bowel regimen. He is to continue eliquis and metoprol and to stop taking Verapamil. Ileus / Possible Pancreatitis / Abdominal Pain Patient with no known gastrointestinal history or alcohol seen for evaluation of abdominal pain. Vitals signs within normal limits in the ED. Lipase 2088, WBC 11.0. CT negative for acute abdominal pathology. US abdomin also negative. Abdominal X-ray demonstrated an ileus possibly due to Verampamil. -General Medicine -Clear/Full liquid diet -Pain control -Lactated Ringers @ 250mL/hr -Zofran 4mg IV Q6H PRN nausea -GI Consult Acute Kidney Injury / Anemia -Avoid NSAIDs and Nephrotoxic medications -Type & Screen -Maintain hemoglobin >8.0, transfuse as needed -PRBC transfused: 2 -Lasix/Losartan held -Daily CBC / BEP Atrial Fibrillation / SVT S/P AICD / Hypertension Patient of Dr. Naresh Sparks. Cardiology consult placed for evaluation of anticoagulation in the context of anemia. -Eliquis 5mg PO BID -Verapamil discontinued -Lopressor 25mg PO BID -Cardiology consult -Follow up echocardiogram Non-insulin Dependent Diabetes Mellitus -Accuchecks TIDAC/HS -Hold oral hypoglycemics -Novolog SSI -Diabetic diet Obstructive Sleep Apnea-Nocturnal CPAP Hyperlipidemia-pravastatin held while NPO Pain Plan-Dilaudid Bowel Regimen-Senna/Colace/Miralax Diet-Diabetic Diet DVT PPx-ALPS Code Status- FULL CODE Problem List: 1. Ileus Pain Ratin Pain Location: None Pain Goal: Remain pain free Pain Plan: See assessment Tomorrow's Labs & Rationales: None
[2017-01-21 06:58] VITALS: BP 138/84
[2017-01-21] MEDS ORDERED: METOPROLOL TART25 M1 PO (09:18)
[2017-01-21] MEDS ORDERED: SENNA8.6 M3 PO (09:18)
[2017-01-21] MEDS ORDERED: MIRALAX17 G1 PO (09:18)
--- NOTE | 2017-01-21 09:21 | Patient Discharge Instructions ---
Discharge Instructions General Discharge Information Special Instructions: Continue taking Eliqus. Stop taking Verapamil. Starting taking Metoprolol 25mg one tablet by mouth twice a day. Start taking Senna and Miralax for constipation. Follow up with Dr. Jefferson and Dr. Patel within two weeks of discharge. Call 911 or return to the ED should your symptoms worsen or if you developed severe abdominal pain or fever. Acute Coronary Syndrome Inclusion Criteria At DC or during hospital stay patient has or had the following: ACS DIAGNOSIS No Discharge Core Measures Meds if any: Prescribed or Continued at Discharge Meds if any: NOT Prescribed or Continued at Discharge Congestive Heart Failure Inclusion Criteria At DC or during hospital stay patient has or had the following: CHF DIAGNOSIS No Discharge Core Measures Meds if any: Prescribed or Continued at Discharge Meds if any: NOT Prescribed or Continued at Discharge Cerebrovascular accident Inclusion Criteria At DC or during hospital stay patient has or had the following: CVA/TIA Diagnosis No Discharge Core Measures Meds if any: Prescribed or Continued at Discharge Meds if any: NOT Prescribed or Continued at Discharge Venous thromboembolism Inclusion Criteria VTE Diagnosis No VTE Type NONE VTE Confirmed by (Test) NONE Discharge Core Measures - Per Current guidelines, there needs to be overlap - treatment for the first 5 days of Warfarin therapy. - If discharged on Warfarin prior to 5 days of - overlap therapy, the patient will need to be - assessed for post discharge needs including - *Post discharge parental anticoagulation - *Warfarin and/or parental anticoagulation education - *Follow up date to check INR post discharge At least 5 days overlap therapy as Inpatient No Meds if any: Prescribed or Continued at Discharge Note: Overlap Therapy is Warfarin and Anticoagulant Meds if any: NOT Prescribed or Continued at Discharge
--- NOTE | 2017-01-21 09:38 | PN- Att Addend ---
Attending Addendum Attending Brief Note Patient complains of minimal abdominal pain, passing gas and having BM General Appearance: Alert, No Acute Distress Skin: Grossly normal HEENT: PEERLA Neck: Supple, No JVD Cardiovascular: Regular Rate, Normal S1, Normal S2, No Murmurs Lungs: Clear to Auscultation, Normal Air Movement Abdomen: Distended abdomen, positive bowel sounds Neurological: Normal Speech, Strength at 5/5 X4 Ext, Cranial Nerves 3-12 NL, Reflexes 2+ Extremities: No Clubbing, No Cyanosis, No Edema Vascular: Normal Pulses Assessment Improved abdominal pain. Gastrografin study shows possible distal strictures, not confirmatory. Plan for flex-sig to rule out strictures. Discontinue verapamil for constipation per cardio and Eliquis restarted. Plan Flex-sig today Hold Lasix resume eliquis Continue other medications Current Medications Sig/Estephanie Start time Last Medication Dose Route Stop Time Status Admin Albuterol Sulfate 2 PUF Q4P PRN 01/20 1915 AC 01/21 INH 0817 Apixaban 5 MG BID 01/19 220 AC 01/20 PO 211 Diclofenac Sodium 1 ROXI BID 01/18 1051 AC 01/20 TOP 2119 Diphenhydramine HCl 25 MG Q6P PRN 01/16 1130 AC IV Docusate Sodium 100 MG BID 01/16 2200 AC 01/20 PO 2118 Hydromorphone HCl 0.5 MG Q3P PRN 01/16 1130 AC 01/18 IV 2109 Insulin Aspart 0 TIDAC 01/18 1200 DC 01/20 SC 1245 Insulin Human Regular 0 Q6 01/21 1200 AC SC Magnesium Citrate 300 ML ONCE ONE 01/20 2200 DC 01/20 PO 01/20 220 211 Metoprolol Tartrate 25 MG BID 01/19 220 AC 01/20 PO 2118 Ondansetron HCl 4 MG Q6P PRN 01/16 1130 AC IV Polyethylene Glycol 17 GM AT BEDTIME 01/16 2200 AC 01/20 PO 2118 Senna/Docusate Sodium 2 TAB DAILY PRN 01/17 2100 AC PO Senna/Docusate Sodium 2 TAB AT BEDTIME 01/16 2200 AC 01/20 PO 211 Vital Signs Date Time Temp Pulse Resp B/P B/P Pulse O2 O2 Flow FiO2 Mean Ox Delivery Rate 01/21 658 98.0 71 22 138/84 97 Room Air 05/05 0536 97 Room Air 05/04 2348 97.8 60 20 130/82 96 Room Air 05/04 2200 97.9 60 20 146/84 97 Room Air 05/04 2118 60 146/84 05/04 1600 99 Room Air 05/04 1404 97.7 61 20 132/86 99
--- NOTE | 2017-01-21 12:39 | NUR ---
NURSING NOTE: PATIENT LEFT FLOOR VIA STRETCHER WITH DISTRIBUTION TO GI SUITE FOR FLEX SIGMOIDOSCOPY. PATIENT A/OX3, DENIES PAIN AT THIS TIME. WILL AWAIT RETURN. PRE-PROCEDURE CHECKLIST COMPLETED, TAP WATER ENEMA X1 GIVEN PER ORDER WITH CLEAR RESULTS. PER MD STUBBS X1 IS JUST FINE.
--- NOTE | 2017-01-21 14:13 | Proc Note Colonoscopy ---
Colonoscopy Procedure Procedure Date: 01/21/17 Procedure Type: colonoscopy Soil Sort Worker: Augustin Patel M.D. ASA Classification: IV Indications: * Abdominal distention and pain; large bowel obstruction versus obstipation versus ileus * Abnormal sigmoid on CT scan with question of stricture; holdup of contrast in sigmoid on contrast enema * Iron deficiency anemia Instrument (Colonoscope): single channel Meds Received: MAC Patient's Tolerance: good Complications: none Extent Reached: terminal ileum Prep: fair Procedure: The patient signed informed consent, was placed in the Aggarwal position, and medicated. Examination of the rectum and prostate was normal. The Olympus high -definition variable stiffness colonoscope was inserted through the anus and advanced to the terminal ileum. Retroflexion was performed in order to examine the rectum. Careful examination was performed. There was adequate withdrawal time. Findings: The rectum was normal. The sigmoid was normal, without diverticulosis, obstructing lesion, or stricture. The mucosa, folds and vasculature of the left colon to the cecum were normal. The terminal ileum was normal. Impression: * Normal colonoscopy without obstructing/neoplastic lesion. Recommendations: * From a gastroenterology standpoint, may discharge the patient; discussed with Dr. Isaac * Low fiber diet * Bowel regimen such as MiraLAX daily * Outpatient follow-up. Consideration for EGD given iron deficiency anemia. CC: CASSIUS BLOOM,LYNN Hankins; MAGGY BLOOM,[facility]
--- NOTE | 2017-01-21 16:35 | NUR ---
NURSING NOTE: PATIENT LEFT FLOOR VIA W/C WITH DISTRIBUTION FOR DISCHARGE WITH FAMILY PRESENT. IV DISCONTINUED. PATIENT A/OX3, DENIES PAIN. ALL BELONGINGS/PRESCRIPTIONS/DISCHARGE PAPERWORK GIVEN TO PATIENT.
--- NOTE | 2017-02-16 15:06 | Discharge Summary ---
Visit Information Visit Dates Admission Date: 01/16/17 Discharge Date: 01/21/17 Hospital Course Course Attending Physician: RADHA WINTER MD Primary Care Physician: CASSIUS BLOOM,LYNN Hankins Consulting Request: Consulting Specialty: Gastroenterology Consulting Physician: Shamar Sparks MD Mahin Patel, [facility] Course: 76-year-old [place] man presented with a chief complaint of abdominal pain that started 3 days ago. According to his sister he has been experiencing primarily back pain, with radiation to the epigastric area, but he also complains of diffuse abdominal discomfort and increased abdominal distention and bloating that is especially gotten worse the last 24 hours. He does not drink any alcohol Also Xarelto was discontinued due to recurrent episodes of severe epistaxis requiring PRBC transfusion and he was started on Eliquis 5mg bid for non-valvular atrial fibrillation. His last episode of epistaxis was 2 weeks prior to the admission. 1. Abdominal Pain Patient presented with an elevated Lipase of [address] was negative for acute abdominal pathology including pancreatitis. US abdomen was negative. Abdominal X-ray demonstrated an ileus. The patient was evaluated by GI who considered abdominal pain secondary to possible ileus/constipation/obstipation secondary to verapamil that was recently started versus sigmoid stricture. A Gastrografin study was indeterminate. Ultimately patient underwent colonoscopy which was negative for strictures or other pathology. abdominal pain improved during the course of hospitalization with regular bowel movements. However the cause of abdominal pain was not completely ascertained however it was most likely secondary to obstipation from verapamil. 2. Acute Kidney Injury Improved with IV fluids. 3. Atrial Fibrillation / SVT S/P AICD / Hypertension Patient was followed by cardiology. Recommendations were made to discontinue verapamil secondary to obstipation. However metoprolol and eliquis were continued upon discharge. echocardiogram showed preserved ejection fraction. 4. Iron deficiency anemia GI recommended outpatient EGD for further evaluation of iron deficiency anemia since colonoscopy was negative. Allergies: Coded Allergies: NO KNOWN ALLERGIES (02/08/16) Significant Procedures: echo cardiogram CONCLUSIONS Left ventricular cavity size normal. Left ventricular wall thickness mildly increased. No obvious regional wall motion abnormalities. Left ventricular ejection fraction is estimated at > 55 %. Catheter/pacemaker wire in the right ventricular cavity. Normal right ventricular size and function. Mild right atrial dilatation. Mild left atrial dilatation. [id number] mitral regurgitation. Mild aortic stenosis. Right ventricular systolic pressure estimated to be elevated at 60 mmHg. CAT scan abdomen and pelvis IMPRESSION: No CT evidence of an acute intra-abdominal process. The gallbladder itself is not well visualized and may be completely contracted, perhaps with some wall calcification as described above. Disposition Summary Disposition Principal Diagnosis: abdominal pain likely secondary to obstipation from verapamil Additional Diagnosis: iron deficiency anemia Atrial fibrillation Hypertension Discharge Disposition: home or self care Discharge Instructions General Discharge Information Code Status: Full Code Patient's Diet: low fiber diet Patient's Activity: no restrictions Follow-Up Instructions/Appts: follow-up with cardiology and GI as outpatient within a week of discharge. He may need outpatient endoscopy for further workup of iron deficiency anemia. Medications at Discharge Discharge Medications: Stop taking the following medications: Verapamil HCl (Verapamil ER) 120 MG TABLET.ER ORAL DAILY Continue taking these medications: Amlodipine Besylate (Norvasc) 5 MG TABLET 1 Tablet ORAL DAILY Comments: NOT GIVEN IN HOSPITAL Simvastatin (Zocor*) 40 MG TABLET 1 Tablet ORAL Every night Comments: NOT GIVEN IN HOSPITAL Metformin HCl (Metformin HCl) 1,000 MG TABLET 1 Tablet ORAL TWICE DAILY Comments: NOT GIVEN IN HOSPITAL Losartan Potassium (Cozaar) 50 MG TABLET 1 Tablet ORAL DAILY Comments: NOT GIVEN IN HOSPITAL Potassium Chloride (K-Tab ER) 20 MEQ TABLET.ER 1 Tablet ORAL DAILY Comments: NOT GIVEN IN HOSPITAL Glimepiride (Glimepiride) 2 MG TABLET 1 Tablet ORAL DAILY Comments: NOT GIVEN IN HOSPITAL Sitagliptin Phos/Metformin HCl (Janumet 50-500 MG Tablet) 50 MG-500 MG TABLET 1 Tablet ORAL TWICE DAILY Comments: NOT GIVEN IN HOSPITAL Furosemide (Furosemide) 40 MG TABLET 1 Tablet ORAL DAILY Comments: NOT GIVEN IN HOSPITAL Apixaban (Eliquis) 5 MG TABLET 1 Tablet ORAL TWICE DAILY Comments: Last Taken: 01/21/17 Time: 1000 Start taking the following new medications: Metoprolol Tartrate (Metoprolol Tartrate) 25 MG TABLET 25 Milligram ORAL TWICE DAILY Qty = 60 No Refills Comments: Last Taken: 01/21/17 Time: 1000 Sennosides (Senna) 8.6 MG TABLET 2 Tablet ORAL DAILY Qty = 60 No Refills Comments: Last Taken: 01/20/17 Time: 2100 Polyethylene Glycol 3350 (Miralax) 17 GRAM POWD.PACK 1 Packet ORAL DAILY Qty = 30 No Refills Instructions: dissolve in water Comments: Last Taken: 01/20/17 Time: 2100 Copies To: YULIANA BLOOM,SHAMAR Carvajal; ENOC BLOOM,MAHIN Elmore Attending MD Review Statement Documenting Attending: RADHA WINTER MD
== END 2017-01-21 16:35 | disposition home health service (06) | DRG 439 ==
LOC: ERH 07:55 → ENRESERV 08:57 → CANRESERV 08:57 → CANBEDREQ 09:58 → 2NB 10:56 → ERHI 10:56 → 2NB 10:56 → ENRESERV 12:51 → 2NB 14:08
PROVIDERS: Emergency Medicine; Internal Medicine Hematology & Oncology; Internal Medicine Interventional Cardiology; ADMIT Internal Medicine
PROC: 30233N1 Transfusion of Nonautologous Red Blood Cells into Peripheral Vein, Percutaneous Approach (ICD-10-PCS; 2017-01-16)
PROC: 0DJD8ZZ Inspection of Lower Intestinal Tract, Via Natural or Artificial Opening Endoscopic (ICD-10-PCS; principal; 2017-01-21)
DX: K85.90 Acute pancreatitis without necrosis or infection, unspecified (principal); N17.9 Acute kidney failure, unspecified; I48.1 Persistent atrial fibrillation; I27.2 Other secondary pulmonary hypertension; K56.7 Ileus, unspecified; D62 Acute posthemorrhagic anemia; J44.9 Chronic obstructive pulmonary disease, unspecified; E11.9 Type 2 diabetes mellitus without complications; E78.5 Hyperlipidemia, unspecified; G47.33 Obstructive sleep apnea (adult) (pediatric); J45.909 Unspecified asthma, uncomplicated; I10 Essential (primary) hypertension; Z79.84 Long term (current) use of oral hypoglycemic drugs; I35.0 Nonrheumatic aortic (valve) stenosis; Z79.01 Long term (current) use of anticoagulants; I25.10 Atherosclerotic heart disease of native coronary artery without angina pectoris; Z95.810 Presence of automatic (implantable) cardiac defibrillator; D50.9 Iron deficiency anemia, unspecified; E66.9 Obesity, unspecified; Z68.29 Body mass index [BMI] 29.0-29.9, adult
CPT/HCPCS: 2NBP; 84133; 84300; 84510; 36415; 74020; 74176; 74270; 81003; 82436; 82570; 83010; 86920; 93005; 93010; 93306; 96361; 96374; 96375; 97110-GO; 97116-GO; 97161-GP; 97530-GO; J1200; J1644; J1815; J1885; J2405; J3490; J7120; P9016

== ENCOUNTER 2017-01-30 11:00 | Emergency (ER) | payer OTHER, MEDICARE ==
[~2017-01-30] VITALS: Ht 160 cm; Wt 77.1 kg
[~2017-01-30 11:00] MED LIST changes: +ELIQUIS5 M1 PO; +METOPROLOL TART25 M1 PO; +MIRALAX17 G1 PO; +SENNA8.6 M3 PO
[2017-01-30 11:05] VITALS: BP 153/76
--- NOTE | 2017-01-30 11:09 | ED NOSE COMPLAINT ---
History of Present Illness General Chief Complaint: Epistaxis/Nasal Foreign Body Stated Complaint: NOSE BLEED Source: patient, family Exam Limitations: no limitations Vital Signs & Intake/Output Vital Signs & Intake/Output Vital Signs Date Time Temp Pulse Resp B/P B/P Pulse O2 O2 Flow FiO2 Mean Ox Delivery Rate 01/30 1155 96 01/30 1105 97.4 82 16 153/76 96 Room Air Allergies Coded Allergies: NO KNOWN ALLERGIES (02/08/16) Reconcile Medications Amlodipine Besylate (Norvasc) 5 MG TABLET 1 TAB PO DAILY HTN (Reported) Amoxicillin/Potassium Clav (Augmentin 875-125 Tablet) 875 MG-125 MG TABLET 1 TAB PO BID RHINOROCKET Apixaban (Eliquis) 5 MG TABLET 1 TAB PO BID atrial fibrillation (Reported) Furosemide 40 MG TABLET 1 TAB PO DAILY WATER PILL (Reported) Glimepiride 2 MG TABLET 1 TAB PO DAILY DIABETES (Reported) Losartan Potassium (Cozaar) 50 MG TABLET 1 TAB PO DAILY HEART (Reported) Metformin HCl 1,000 MG TABLET 1 TAB PO BID DIABETES (Reported) Metoprolol Tartrate 25 MG TABLET 25 MG PO BID RATE CONTROL Polyethylene Glycol 3350 (Miralax) 17 GRAM POWD.PACK 1 PAC PO DAILY CONSTIPATION dissolve in water Potassium Chloride (K-Tab ER) 20 MEQ TABLET.ER 1 TAB PO DAILY SUPPLEMENT ( Reported) Sennosides (Senna) 8.6 MG TABLET 2 TAB PO DAILY CONSTIPATION Simvastatin (Zocor*) 40 MG TABLET 1 TAB PO QPM CHOLESTEROL (Reported) Sitagliptin Phos/Metformin HCl (Janumet 50-500 MG Tablet) 50 MG-500 MG TABLET 1 TAB PO BID DIABETES (Reported) Triage Note: PT HERE WITH NOSE BLEED THAT STARTED AT 10AM Triage Nurses Notes Reviewed? yes Onset: Abrupt Duration: hour(s): (1), constant Timing: recent history Injury Environment: home Severity: mild, moderate Severity Numbers: 5 No Modifying Factors: none Associated Symptoms: denies HPI: 76 year old male with history of afib on elliquis, Copd presents with family s/p developing sudden onset of painless nose bleed for the past 1 hour. he denies trauma or injury. nose bleed is from right nostril. On arrival the patient is noted to be wheezing, he denies cough, pain, fever, chills, difficulty breathing. no modifying factors or associated symptoms otherwise. no dizziness, lightheadedness patient has been seen numerous times in the past for nosebleeds requiring packing (GOGO HANSON) Past History Travel History Traveled to [place] past 21 day No Medical History Any Pertinent Medical History? see below for history Neurological: NONE EENT: NONE Cardiovascular: AFIB, hypertension, hyperlipidemia, LCW PACER Respiratory: asthma, COPD, obstructive sleep apnea Gastrointestinal: NONE Hepatic: NONE Renal: NONE Musculoskeletal: NONE Psychiatric: NONE Endocrine: diabetes Blood Disorders: anemia Cancer(s): NONE SKEIN BANDER/Reproductive: NONE History of MRSA: No History of VRE: No History of CDIFF: No Surgical History Surgical History: non-contributory Psychosocial History Who do you live with Patient/Self Services at Home None What is your primary language Other Tobacco Use: Never used ETOH Use: denies use Illicit Drug Use: denies illicit drug use Family History Family History, If Any: FATHER (DIABETES,HTN,CAD). Relation not specified for: FH: diabetes mellitus FHx: stroke Hx Contributory? No (GOGO HANSON) Review of Systems Review of Systems Constitutional: Reports: see HPI. All Other Systems: Reviewed and Negative Comments Review of systems: See HPI, All other systems negative. Constitutional, no chills no fever, no malaise no weight loss HEENT: No visual changes no sore throat no congestion, no ear pain Cardiovascular: No chest pain , no palpitation , no orthopnea Skin: no rashes, no change in skin Respiratory: No dyspnea no cough no sputum no hemoptysis GI: No nausea no vomiting, no diarrhea, no bloating/constipation Muscle skeletal: No joint pain, no joint swelling, no back pain, no neck pain, Neurologic: , no headache Psych: No stress Heme/endocrine: No bruising Immunology: No lymphadenopathy (GOGO HANSON) Physical Exam Physical Exam General Appearance: well developed/nourished, no apparent distress, alert, awake Nose: active bleeding (R NOSTRIL) Comments: Well-developed well-nourished patient in no apparent distress. Head/Face: Atraumatic, no maxillary/frontal sinus tenderness, no facial swelling Eyes: PERRL, EOMI, no conjunctival injection. Ear:External auditory canals clear, no erythema, no FB. Nose: Active bleeding from the right nostril and no active bleeding site identified the left nostril is clear, no septal hematoma Throat: Moist mucous membranes.Pharynx normal. No pharyngeal erythema/exudate seen. No stridor/drooling or assymetry. No swelling or edema. Neck: Supple, no lymphadenopathy, FROM Back: FROM Cardiovascular: Regular rate and rhythms no murmurs rubs or gallops, Respiratory: Chest nontender.There were no bony deformities, no asymmetry. No respiratory distress. Patient speaking in full complete sentences. Wheezing bilaterally no rhonchi no rales Extremities: full range of motion Neuro: awake, alert, and oriented to person, place and time. There were no obvious focal neurologic abnormalities. Skin: Warm & dry;No appreciable rash on exposed skin Psych: Mood affect normal, normal memory normal judgment. (GOGO HANSON) Progress Differential Diagnoses I considered the following diagnoses in my evaluation of the patient: epistaxis, hypercoaguable state COPD exacerbation asthma pneumonia bronchitis Plan of Care: Orders Procedure Date/time Status PARTIAL THROMBOPLASTIN TIME 01/30 1122 Complete PROTHROMBIN TIME 01/30 1122 Complete Current Medications Sig/Estephanie Start time Last Medication Dose Stop Time Status Admin Thrombin 1 UNITS ONCE ONE 01/30 1130 CAN (Thrombin Bovine) 01/30 1131 Laboratory Tests 01/30/17 1115: PT 16.7 H, INR 1.60 H, APTT 35 7.5cm rhino rocket placed by myself after it was instilled with thrombin. labs ordered, d/w pt and faily plan of care and need for close observation to ensure bleeding does not recur. they feel comfortable with plan. case d/w dr martinez 01/30/2017 12:00:19 PM I discussed with the patient at length all of their results. The patient states he feels comfortable with going home he states he needs to bring his family member to work I had an extensive conversation regarding need for close follow up with their ear nose and throat physician as well as his primary care physician this week as well as return precautions. I answered all of their questions, they feel comfortable with the plan and follow-up care. I discussed the medications that they will receive with the patient. I gave them signs and symptoms that could indicate an adverse reaction. I have advised them to limit their activities until they can see how they respond to the medication. (GOGO HANSON) Initial ED EKG: none (GOGO HANSON) Departure Departure Time of Disposition: 1156 Disposition: HOME OR SELF CARE Condition: Stable Clinical Impression Primary Impression: Epistaxis Referrals: JUDITH BLOOM,JAMES HAMMONDS MD,LYNN Hankins (PCP/Family) Additional Instructions: AUGMENTIN DIRECTED. FOLLOW UP WITH EAR NOSE AND THROAT PHYSICIAN DR WONG FOR PACKING REMOVAL IN 48 HOURS. RETURN TO THE ER AT ANYTIME SOONER WITH ANY CONCERNS Departure Forms: Customer Survey General Discharge Information Prescriptions: Current Visit Scripts Amoxicillin/Potassium Clav (Augmentin 875-125 Tablet) 1 TAB PO BID #14 TAB (GOGO HANSON) PA/CODER Co-Sign Statement Statement: ED Attending supervision documentation- [X] I saw and evaluated the patient. I have also reviewed all the pertinent lab results and diagnostic results. I agree with the findings and the plan of care as documented in the PA's/CODER's documentation. [X] I have reviewed the ED Record and agree with the PA's/CODER's documentation. [] Additions or exceptions (if any) to the PAs/CODER's note and plan are summarized below: [] (NILESH BLOOM,JOSE F Villalobos) Procedures Epistaxis/Nasal Foreign Body Status: bleeding Clots Cleared Nasal Passage: by patient blowing Nasal Drops Instilled: Right: Afphrin. Ext Pressure/Nose Pinch (min): 15 Inspected With: otoscope Nasal Rocket: Right: Inserted Anterior, Inserted Posterior. (GOGO HANSON)
[2017-01-30 11:43] LABS: PT 16.7 SEC (9.4-12.5); PTT 35 SEC (25-37)
[2017-01-30] MEDS ORDERED: AUGMENTIN 875-1 EACH PO (11:57)
== END 2017-01-30 12:00 ==
LOC: ERH 11:00
PROVIDERS: Physician Assistant Medical
DX: R04.0 Epistaxis (principal)
CPT/HCPCS: 1263

== ENCOUNTER 2017-02-02 07:40 | Emergency (ER) | payer OTHER, MEDICARE ==
[~2017-02-02] VITALS: Ht 160 cm; Wt 78.0 kg
[2017-02-02 07:42] VITALS: BP 117/69
--- NOTE | 2017-02-02 07:50 | ED NOSE COMPLAINT ---
History of Present Illness General Chief Complaint: General Adult Stated Complaint: NOSE PACKING REMOVA Source: patient, old records Exam Limitations: no limitations Vital Signs & Intake/Output Vital Signs & Intake/Output Vital Signs Date Time Temp Pulse Resp B/P B/P Pulse O2 O2 Flow FiO2 Mean Ox Delivery Rate 02/02 0742 96.5 90 18 117/69 97 Room Air Allergies Coded Allergies: NO KNOWN ALLERGIES (02/08/16) Reconcile Medications Amlodipine Besylate (Norvasc) 5 MG TABLET 1 TAB PO DAILY HTN (Reported) Amoxicillin/Potassium Clav (Augmentin 875-125 Tablet) 875 MG-125 MG TABLET 1 TAB PO BID RHINOROCKET Apixaban (Eliquis) 5 MG TABLET 1 TAB PO BID atrial fibrillation (Reported) Furosemide 40 MG TABLET 1 TAB PO DAILY WATER PILL (Reported) Glimepiride 2 MG TABLET 1 TAB PO DAILY DIABETES (Reported) Losartan Potassium (Cozaar) 50 MG TABLET 1 TAB PO DAILY HEART (Reported) Metformin HCl 1,000 MG TABLET 1 TAB PO BID DIABETES (Reported) Metoprolol Tartrate 25 MG TABLET 25 MG PO BID RATE CONTROL Polyethylene Glycol 3350 (Miralax) 17 GRAM POWD.PACK 1 PAC PO DAILY CONSTIPATION dissolve in water Potassium Chloride (K-Tab ER) 20 MEQ TABLET.ER 1 TAB PO DAILY SUPPLEMENT ( Reported) Sennosides (Senna) 8.6 MG TABLET 2 TAB PO DAILY CONSTIPATION Simvastatin (Zocor*) 40 MG TABLET 1 TAB PO QPM CHOLESTEROL (Reported) Sitagliptin Phos/Metformin HCl (Janumet 50-500 MG Tablet) 50 MG-500 MG TABLET 1 TAB PO BID DIABETES (Reported) Triage Note: 76 Y/O MALE REQUESTING NASAL PACKING REMOVAL (R NARE); STATES PLACED LAST TUESDAY. DENIES COMPLAINTS Triage Nurses Notes Reviewed? yes Onset: Abrupt Duration: day(s): (4), constant Timing: recent history Injury Environment: home Severity: mild Severity Numbers: 4 No Modifying Factors: none Associated Symptoms: DENIES HPI: 76-year-old male with history of A. fib on Elliquis presents to the ER for evaluation for packing removal after he sustained right sided epistaxis 4 days ago. The patient states he's had no residual bleeding. The patient is otherwise without any complaints no modifying factors no difficulty breathing no fever no chills he's been compliant with taking his antibiotic. (GOGO HANSON) Past History Travel History Traveled to [place] past 21 day No Medical History Any Pertinent Medical History? 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 Relation not specified for: FH: diabetes mellitus FHx: stroke Hx Contributory? No (GOGO HANSON) Review of Systems Review of Systems Constitutional: Reports: see HPI. All Other Systems: Reviewed and Negative Comments Review of systems: See HPI, All other systems negative. Constitutional, no chills no fever, no malais HEENT: No visual changes no sore throat no congestion Cardiovascular: No chest pain , no palpitation Skin: no rashes, no change in skin Respiratory: No dyspnea no cough no sputum GI: No nausea no vomiting, no diarrhea, Muscle skeletal: No joint pain, no back pain, no neck pain, Neurologic: No numbness no headache Psych: No stress Heme/endocrine: No bruising no bleeding Immunology: No lymphadenopathy (GOGO HANSON) Physical Exam Physical Exam General Appearance: well developed/nourished, no apparent distress, alert, awake Nose: normal inspection Comments: Well-developed well-nourished patient in no apparent distress. Head/Face: Atraumatic, no maxillary/frontal sinus tenderness, no facial swelling Eyes: PERRL, EOMI, no conjunctival injection Ear:External auditory canals clear, no erythema, no FB. Nose: atraumatic.Normal inspection: No bleeding, no septal hematoma Rhino Rocket in place the right nostril Throat: Moist mucous membranes.Pharynx normal. No pharyngeal erythema/exudate seen. No stridor/drooling or assymetry. No swelling or edema. Neck: Supple, no lymphadenopathy, FROM Back: FROM Cardiovascular: Irregular rhythm, murmurs rubs or gallops, Respiratory: No respiratory distress. Patient speaking in full complete sentences. Breath sounds clear to auscultation bilaterally: NO W/R/R Extremities: full range of motion Neuro: awake, alert, and oriented to person, place and time. There were no obvious focal neurologic abnormalities. Skin: Warm & dry;No appreciable rash on exposed skin Psych: Mood affect normal, normal memory normal judgment. (GOGO HANSON) Progress Differential Diagnoses I considered the following diagnoses in my evaluation of the patient: Epistaxis and nasal packing removal Plan of Care: The Rhino Rocket was removed by me the patient was monitored for approximately 15 minutes with no residual bleeding I discussed with him plan of care I advised return to ER with any concerns he feels comfortable with this plan cleared for discharge Initial ED EKG: none (GOGO HANSON) Departure Departure Time of Disposition: 754 Disposition: HOME OR SELF CARE Condition: Stable Clinical Impression Primary Impression: Encounter for removal of nasal packing Referrals: CASSIUS BLOOM,LYNN Hankins (PCP/Family) Additional Instructions: return to the ER if you redevelop bleeding or with any concerns Departure Forms: Customer Survey General Discharge Information (GOGO HANSON) PA/EQUAL OPPORTUNITY ASSISTANT Co-Sign Statement Statement: ED Attending supervision documentation- [x] I saw and evaluated the patient. I have also reviewed all the pertinent lab results and diagnostic results. I agree with the findings and the plan of care as documented in the PA's/EQUAL OPPORTUNITY ASSISTANT's documentation. [] I have reviewed the ED Record and agree with the PA's/EQUAL OPPORTUNITY ASSISTANT's documentation. [] Additions or exceptions (if any) to the PAs/EQUAL OPPORTUNITY ASSISTANT's note and plan are summarized below: [] (DENA BLOOM,ANSELMO Westfall
== END 2017-02-02 08:18 ==
LOC: ERH 07:40
DX: Z48.01 Encounter for change or removal of surgical wound dressing (principal)
CPT/HCPCS: 99281

== ENCOUNTER 2017-02-05 01:59 | Emergency (ER) | payer OTHER, MEDICARE ==
[~2017-02-05] VITALS: Ht 160 cm; Wt 79.4 kg
--- NOTE | 2017-02-05 03:21 | ED NOSE COMPLAINT ---
History of Present Illness General Chief Complaint: Epistaxis/Nasal Foreign Body Stated Complaint: NOSEBLEED Source: patient Exam Limitations: no limitations Vital Signs & Intake/Output Vital Signs & Intake/Output Vital Signs Date Time Temp Pulse Resp B/P B/P Pulse O2 O2 Flow FiO2 Mean Ox Delivery Rate 02/05 0400 98.7 91 22 122/61 99 02/05 0242 98.2 70 22 126/68 95 Room Air Allergies Coded Allergies: NO KNOWN ALLERGIES (02/08/16) Reconcile Medications Amlodipine Besylate (Norvasc) 5 MG TABLET 1 TAB PO DAILY HTN (Reported) Amoxicillin/Potassium Clav (Augmentin 875-125 Tablet) 875 MG-125 MG TABLET 1 TAB PO BID INFECTION PREVENTION/NOSEBLEED Amoxicillin/Potassium Clav (Augmentin 875-125 Tablet) 875 MG-125 MG TABLET 1 TAB PO BID RHINOROCKET Apixaban (Eliquis) 5 MG TABLET 1 TAB PO BID atrial fibrillation (Reported) Furosemide 40 MG TABLET 1 TAB PO DAILY WATER PILL (Reported) Glimepiride 2 MG TABLET 1 TAB PO DAILY DIABETES (Reported) Losartan Potassium (Cozaar) 50 MG TABLET 1 TAB PO DAILY HEART (Reported) Metformin HCl 1,000 MG TABLET 1 TAB PO BID DIABETES (Reported) Metoprolol Tartrate 25 MG TABLET 25 MG PO BID RATE CONTROL Polyethylene Glycol 3350 (Miralax) 17 GRAM POWD.PACK 1 PAC PO DAILY CONSTIPATION dissolve in water Potassium Chloride (K-Tab ER) 20 MEQ TABLET.ER 1 TAB PO DAILY SUPPLEMENT ( Reported) Sennosides (Senna) 8.6 MG TABLET 2 TAB PO DAILY CONSTIPATION Simvastatin (Zocor*) 40 MG TABLET 1 TAB PO QPM CHOLESTEROL (Reported) Sitagliptin Phos/Metformin HCl (Janumet 50-500 MG Tablet) 50 MG-500 MG TABLET 1 TAB PO BID DIABETES (Reported) Triage Note: 76YO MAL ETO TRIAGE W/CO NOSEBLEED SINCE 0000. Triage Nurses Notes Reviewed? yes Onset: Abrupt Duration: hour(s): Timing: single episode today Injury Environment: home Severity: moderate Modifying Factors: Improves With: rest. Worsens With: other ("keeps bleeding" on eliquis). Associated Symptoms: bleeding from right Nare HPI: 76-year-old gentleman presents with bleeding from his right nare. He notes that he is taking eliquis. He has been bleeding for several hours. He does not confer any trauma. He has no dizziness chest pain shortness of breath. He states, "the blood keeps coming out." Past History Travel History Traveled to [place] past 21 day No Medical History Any Pertinent Medical History? 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 Relation not specified for: FH: diabetes mellitus FHx: stroke Hx Contributory? No Review of Systems Review of Systems Constitutional: Reports: no symptoms. EENTM: Reports: no symptoms. Respiratory: Reports: no symptoms. Cardiovascular: Reports: no symptoms. GI: Reports: no symptoms. Genitourinary: Reports: no symptoms. Musculoskeletal: Reports: no symptoms. Skin: Reports: no symptoms. Neurological/Psychological: Reports: no symptoms. Hematologic/Endocrine: Reports: no symptoms. Immunologic/Allergic: Reports: no symptoms. All Other Systems: Reviewed and Negative Physical Exam Physical Exam General Appearance: well developed/nourished, mild distress Head: atraumatic Eyes: Bilateral: normal appearance. Nose: right Oneill with moderate bleeding. No clots. No sinus tenderness. Mouth/Throat: normal mouth inspection, pharynx normal Neck: normal inspection, supple Cardiovascular/Respiratory: normal breath sounds, regular rate/rhythm Back: normal inspection Neurologic/Psych: awake, alert, oriented x 3, normal mood/affect Skin: intact, normal color, warm/dry Progress Differential Diagnoses I considered the following diagnoses in my evaluation of the patient: anterior vs posterior nasal bleeding. Plan of Care: Current Medications Sig/Estephanie Start time Last Medication Dose Stop Time Status Admin Amoxicillin/ 1,000 MG ONCE ONE 02/05 415 UNVr Clavulanate Potassium 02/06 416 (Augmentin) Initial ED EKG: none Departure Departure Disposition: HOME OR SELF CARE Condition: Stable Clinical Impression Primary Impression: Right-sided epistaxis Referrals: CASSIUS BLOOM,LYNN Hankins (PCP/Family) Departure Forms: Customer Survey General Discharge Information Prescriptions: Current Visit Scripts Amoxicillin/Potassium Clav (Augmentin 875-125 Tablet) 1 TAB PO BID #14 TAB Procedures Epistaxis/Nasal Foreign Body Status: bleeding Clots Cleared Nasal Passage: by patient blowing Ext Pressure/Nose Pinch (min): 20 Inspected With: otoscope Bleeding Site: Unable to visualize bleeding site Hemostatic Nasal Balloon: Right: Inserted Posterior. Progress: Excellent result after nasal rocket placed. Patient placed on antibiotics and will see me in 2 days. I also referred him to ENT.
[2017-02-05 04:00] VITALS: BP 122/61
[2017-02-05] MEDS ORDERED: AUGMENTIN 875-1 EACH PO (04:14)
== END 2017-02-05 04:38 ==
LOC: ERH 01:59
DX: R04.0 Epistaxis (principal)

== ENCOUNTER 2017-02-06 19:15 | Emergency (ER) | payer OTHER, MEDICARE ==
[~2017-02-06] VITALS: Ht 160 cm; Wt 78.0 kg
[2017-02-06 19:19] VITALS: BP 142/66
--- NOTE | 2017-02-06 19:23 | ED NOSE COMPLAINT ---
History of Present Illness General Chief Complaint: Epistaxis/Nasal Foreign Body Stated Complaint: RE CHECK FOR EPISTAXIS Source: patient Exam Limitations: no limitations Vital Signs & Intake/Output Vital Signs & Intake/Output Vital Signs Date Time Temp Pulse Resp B/P B/P Pulse O2 O2 Flow FiO2 Mean Ox Delivery Rate 02/06 1919 97.4 74 15 142/66 92 Room Air Room Air ED Intake and Output 02/07 0000 02/06 1200 Intake Total 0 Output Total Balance 0 Intake, Oral 0 Patient 172 lb Weight Weight Reported by Patient Measurement Method Allergies Coded Allergies: NO KNOWN ALLERGIES (02/08/16) Reconcile Medications Amlodipine Besylate (Norvasc) 5 MG TABLET 1 TAB PO DAILY HTN (Reported) Amoxicillin/Potassium Clav (Augmentin 875-125 Tablet) 875 MG-125 MG TABLET 1 TAB PO BID INFECTION PREVENTION/NOSEBLEED Amoxicillin/Potassium Clav (Augmentin 875-125 Tablet) 875 MG-125 MG TABLET 1 TAB PO BID RHINOROCKET Apixaban (Eliquis) 5 MG TABLET 1 TAB PO BID atrial fibrillation (Reported) Furosemide 40 MG TABLET 1 TAB PO DAILY WATER PILL (Reported) Glimepiride 2 MG TABLET 1 TAB PO DAILY DIABETES (Reported) Losartan Potassium (Cozaar) 50 MG TABLET 1 TAB PO DAILY HEART (Reported) Metformin HCl 1,000 MG TABLET 1 TAB PO BID DIABETES (Reported) Metoprolol Tartrate 25 MG TABLET 25 MG PO BID RATE CONTROL Polyethylene Glycol 3350 (Miralax) 17 GRAM POWD.PACK 1 PAC PO DAILY CONSTIPATION dissolve in water Potassium Chloride (K-Tab ER) 20 MEQ TABLET.ER 1 TAB PO DAILY SUPPLEMENT ( Reported) Sennosides (Senna) 8.6 MG TABLET 2 TAB PO DAILY CONSTIPATION Simvastatin (Zocor*) 40 MG TABLET 1 TAB PO QPM CHOLESTEROL (Reported) Sitagliptin Phos/Metformin HCl (Janumet 50-500 MG Tablet) 50 MG-500 MG TABLET 1 TAB PO BID DIABETES (Reported) Triage Note: PT TO ED FOR REMOVAL OF RHINO ROCKET THAT WAS PLACED TUESDAY. NO COMPLICATIONS. Triage Nurses Notes Reviewed? yes Onset: Abrupt Duration: day(s):, gone now Timing: recent history Injury Environment: home Severity: moderate Modifying Factors: Improves With: rest, other (better with nasal rocket). Associated Symptoms: right nare nasal rocket HPI: 76-year-old gentleman who had been taking L Oquist presented 2 days ago with a nosebleed from his right nostril. A nasal rocket was placed by this physician. He returns to the ED for follow-up to see me. He notes that he has had no bleeding. He has no pain fever or nasal discharge shortness of breath or chest pain. He is otherwise well. Past History Travel History Traveled to [place] past 21 day No Medical History Any Pertinent Medical History? 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 Relation not specified for: FH: diabetes mellitus FHx: stroke Hx Contributory? No Review of Systems Review of Systems Constitutional: Reports: no symptoms. EENTM: Reports: no symptoms. Respiratory: Reports: no symptoms. Cardiovascular: Reports: no symptoms. GI: Reports: no symptoms. Genitourinary: Reports: no symptoms. Musculoskeletal: Reports: no symptoms. Skin: Reports: no symptoms. Neurological/Psychological: Reports: no symptoms. Hematologic/Endocrine: Reports: no symptoms. Immunologic/Allergic: Reports: no symptoms. All Other Systems: Reviewed and Negative Physical Exam Physical Exam General Appearance: well developed/nourished, mild distress Head: atraumatic Eyes: Bilateral: PERRL, EOMI. Nose: nasal rocket in place. No active bleeding. Mouth/Throat: normal mouth inspection, pharynx normal Neck: normal inspection, supple Cardiovascular/Respiratory: normal breath sounds, regular rate/rhythm Back: normal inspection Neurologic/Psych: awake, alert, oriented x 3, normal mood/affect Skin: intact, normal color, warm/dry Progress Differential Diagnoses I considered the following diagnoses in my evaluation of the patient: Epistaxis versus sinusitis versus other Plan of Care: Is a rocket was removed. There is some old clots that also were extracted when he blew his nose. He was observed for 45 minutes without any bleeding. He was discharged home. I encouraged close follow-up. 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 Initial ED EKG: none Departure Departure Disposition: HOME OR SELF CARE Condition: Stable Clinical Impression Primary Impression: Epistaxis Referrals: CASSIUS BLOOM,LYNN Hankins (PCP/Family) Departure Forms: Customer Survey General Discharge Information Comments He is a rocket was removed. Patient monitored in the ED for 45 minutes. He has had no recurrent epistaxis. Patient's E for discharge with close follow-up advised. I referred the patient to ENT.
== END 2017-02-06 20:08 ==
LOC: ERH 19:15
DX: R04.0 Epistaxis (principal)
CPT/HCPCS: 99282

== ENCOUNTER 2017-04-14 21:05 | Emergency (ER) | payer OTHER, MEDICARE ==
[2017-04-14 21:13] VITALS: BP 130/68
== END 2017-04-14 21:52 | disposition admitted as inpatient to this hospital (09) ==
LOC: ERH 21:05
DX: R04.0 Epistaxis (principal)